=== PATIENT | female | born 1940 | race Caucasian/White ===

== ENCOUNTER 2018-08-14 11:01 | Inpatient (IN) ==
[2018-08-14] MEDS ORDERED: NS 1,000 ML IV ONE ×2 (11:53→17:23)
[2018-08-14 12:09] LABS: ALLEN TEST NO; BE -1.1 mmoll (-3.0-3.0); BLOOD TYPE ARTERIAL; METHB 1.9 % (0.0-1.5); O2(CT) 14.1 mL/dL (15.0-23.0); O2HB 95.2 % (95.0-99.0); PCO2(98.6) 38 mmHg (35-45); PO2(98.6) 102 mmHg (60-100); SAMPLE BLOOD; THB 10.4 g/dL (11.5-17.4)
[2018-08-14 12:10] LABS: MODALITY CANNULA
--- NOTE | 2018-08-14 12:14 | Diag Imaging Result Doc PS360 ---
EXAM: CHEST-PORTABLE 08/14/2018 HISTORY: weakness TECHNIQUE: AP portable at 1204 COMMENT: Compared to the previous study of 12/28/2017 the patchy opacities in the lower lobes have resolved. The heart size and pulmonary vascularity are within normal limits. There is no evidence of pleural effusions. IMPRESSION: No evidence of acute disease. Electronically signed by Matt Velazco 08/14/2018 12:11 PM
[2018-08-14 13:50] LABS: URINE SOURCE CLEAN CATCH
[2018-08-14 13:53] LABS: BASO# 0.02 X1000 (0.0-0.2); BASO% 0.2 % (0.0-0.8); EOS% 1.2 % (0.0-10.0); HEMATOCRIT 31.8 % (37.0-47.0); HEMOGLOBIN 10.4 g/dL (12.0-16.0); IMM GRAN# 0.06 X1000 (0.0-0.04); IMM GRAN% 0.7 % (0.0-0.5); LYMPH# 0.77 X1000 (1.2-3.4); LYMPH% 9.5 % (20.5-51.1); MCHC 32.7 g/dL (33-37); MCV 91.6 FL (81-99); MONO# 1.32 X1000 (0.11-0.59); MONO% 16.2 % (1.7-9.3); MPV 9.5 FL (7.4-10.4); NEUT# 5.87 X1000 (1.4-6.5); NEUT% 72.2 % (42.2-75.2); PLT 292 X1000 (130-400); RBC 3.47 XMIL (4.2-5.4); RDW 14.6 % (11.5-14.5); WBC 8.14 X1000 (4.8-10.8)
[2018-08-14 13:55] LABS: BILIRUBIN URINE NEGATIVE (NEGATIVE); BLOOD URINE NEGATIVE (NEGATIVE); COLOR YELLOW; GLUCOSE URINE NEGATIVE (NEGATIVE); KETONE URINE TRACE mg/dL (NEGATIVE); LEUKOCYTES URINE TRACE (NEGATIVE); NITRITE URINE NEGATIVE (NEGATIVE); PH URINE 5.5; PROTEIN URINE TRACE mg/dL (NEGATIVE); SP GRAVITY URINE 1.012; TURBIDITY URINE HAZY (CLEAR); UR EPITHELIAL CELLS >10 /HPF (<10); URINE BACTERIA NEGATIVE /HPF; URINE RBC <10 /HPF (<10); URINE WBC <10 /HPF (<10); UROBILINOGEN URINE NORMAL (NORMAL)
[2018-08-14 14:18] LABS: ALB/GLOB RATIO 1.2; ALBUMIN 2.7 g/dL (3.5-5.0); CALCIUM 7.4 mg/dL (8.8-10.2); CREATININE 1.2 mg/dL (0.5-0.9); POTASSIUM 4.7 mmol/L (3.5-5.1); TOTAL BILIRUBIN 0.31 mg/dL (0.20-1.00)
--- NOTE | 2018-08-14 15:19 | Diag Imaging Result Doc PS360 ---
CT ABD/PELVIS W/IV CONT ONLY - 08/14/2018 INDICATION: colitis COMPARISON: None FINDINGS: There are some tree-in-bud nodular infiltrates in the lung bases compatible with aspiration or chronic atypical mycobacteria infection. Heart size is normal with no pericardial effusion. There is fatty change of the liver. There is a left adrenal gland nodule measuring 2 x 1.5 cm. The gallbladder is somewhat distended. No obvious inflammation. No calcified gallstones. The ascending colon is somewhat collapsed but there appears to be some inflammation here. Normal appendix. There is severe diverticulosis of the sigmoid colon. No small bowel obstruction. There is moderate vascular disease with some stenosis of the superior mesenteric artery, narrowed by about 50%. There are moderate degenerative changes of the spine. No acute or suspicious bony lesion. There is severe vascular disease of the abdominal aorta and iliac artery systems. Uterus is absent. Urinary bladder and rectum are normal. IMPRESSION: 1. Probable colitis of the ascending colon. Severe diverticulosis of the sigmoid colon. 2. 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 3. Distended gallbladder, nonspecific. Correlate clinically. Consider a gallbladder ultrasound. 4. Fatty liver. 5. Aspiration or chronic atypical pneumonia of the lower lobes bilaterally. 6. Indeterminate, small left adrenal gland nodule. This exam was performed using automated exposure control, adjustment of mA or kV according to patient size, and/or use of iterative reconstruction technique Electronically signed by Franky Brown 08/14/2018 3:16 PM
[2018-08-14] MEDS ORDERED: NS 1,000 ML IV SCH (16:00)
[2018-08-14] MEDS ORDERED: ZOFRAN IV PRN (17:50)
--- NOTE | 2018-08-14 17:57 | PROVIDER DOCUMENTATION ---
This chart was entered by Charlette Hercules Scribe, acting as scribe for Israel Montano MD. HPI-General Adult - General Chief Complaint: Weakness Stated Complaint: WEAKNESS,NOT EATING/LUNG CANCER Time Seen by Provider: 08/14/18 11:41 Source: patient, family Allergies/Adverse Reactions: Patient Allergies Allergy/AdvReac Type Severity Reaction Status Date / Time aspirin Allergy RUNNY NOSE Verified 08/14/18 11:48 bacitracin Allergy RASH Verified 08/14/18 11:48 [From Neosporin ([id number])] clindamycin Allergy Unknown Verified 08/14/18 11:48 moxifloxacin [From Avelox] Allergy SWELLING Verified 08/14/18 11:48 neomycin Allergy RASH Verified 08/14/18 11:48 [From Neosporin ([id number])] polymyxin B Allergy RASH Verified 08/14/18 11:48 [From Neosporin ([id number])] fluticasone AdvReac Unknown Unknown Verified 08/14/18 11:48 levofloxacin [From Levaquin] AdvReac Unknown Verified 08/14/18 11:48 Penicillins AdvReac HIVES Verified 08/14/18 11:48 Home Medications: Home Medication List Medication Instructions Recorded Confirmed Last Taken Type Albuterol 2.5MG/Ipratrop 0.5MG 3 ml INH RTTID 08/02/17 12/24/17 12/23/17 History [Duoneb (A & A)] Albuterol Sulfate [Albuterol 1 puff IH Q6H PRN 08/02/17 12/24/17 Unknown History Sulfate Hfa] Amlodipine Besylate [Norvasc] 5 mg PO DAILY 08/02/17 12/24/17 12/24/17 10:00 History Famotidine [Pepcid] 20 mg PO DAILY 08/02/17 12/24/17 12/24/17 10:00 History Fluticasone/Vilanterol [Breo 1 each IH DAILY 08/02/17 12/24/17 12/24/17 10:00 History Ellipta 200-25 Mcg INH] Lactobacillus Rhamnosus GG 1 each PO BID 08/02/17 12/24/17 12/24/17 10:00 History [Culturelle] Mirtazapine 45 mg PO HS 08/02/17 12/24/17 12/23/17 20:00 History Prednisone 10 mg PO DAILY 08/02/17 12/24/17 12/24/17 10:00 History Rosuvastatin Calcium [Crestor] 5 mg PO HS 08/02/17 12/29/17 12/24/17 10:00 History Alprazolam [Xanax] 0.25 mg PO BID PRN 12/24/17 12/24/17 12/24/17 10:00 History Tiotropium [place] Inhaler 18 mcg IH DAILY 12/24/17 12/24/17 12/24/17 10:00 History [Spiriva] Polyethylene Glycol 3350 [Miralax] 17 gm PO DAILY 12/27/17 12/27/17 Unknown History Guaifenesin E.r. [Mucinex] 600 mg PO Q12H 30 Days #60 tab 12/29/17 Unknown Rx Hydrocodone/Acetaminophen 1 ea PO TID PRN 30 Days #90 tab 12/29/17 Unknown Rx [Hydrocodone-Acetamin 10-325 mg] Sulfamethoxazole/Trimethoprim 1 ea PO BID 10 Days #20 tab 12/29/17 Unknown Rx [Bactrim Ds Tablet] - History of Present Illness -Gen Adult Nature of Presenting Problems: 77 yowf presents to the ed with c/o weakness, decreased appetite, generalized pain, nausea, diarrhea and currently going through chemo for lung cancer. pt had a fall on saturday morning and just has been getting progressively weaker since 3 days prior Location of Pain/Injury: reports: generalized (pain) Quality of Pain: reports: aching Severity: reports: moderate Onset/Duration: reports: 3 days ago Timing: reports: still present, getting worse Context/Activities at Onset: reports: light activity Modifying Factors: improves with: nothing Associated Symptoms: reports: diarrhea, fatigue, loss of appetite, malaise, muscle aches, weakness, trouble walking. denies: chest pain, fever/chills, headaches, shortness of breath, vomiting Similar Symptoms Previously?: Yes Recently seen or treated by another doctor?: Yes (has sen oncologist) Review of Systems - Adult - REVIEW OF SYSTEMS - ADULT Constitutional: reports: see HPIsoraida Eyes: reports: no symptoms reported Ears, Nose, Mouth & Throat: reports: no symptoms reported Cardiovascular: denies: chest pain, palpitations, syncope Respiratory: denies: cough, shortness of breath, wheezing Gastrointestinal: reports: see HPI, diarrhea, nausea, poor appetite. denies: abdominal pain, vomiting Genitourinary: reports: no symptoms reported Musculoskeletal: reports: see HPI, muscle aches, muscle weakness Integumentary: reports: no symptoms reported Neurological: reports: see HPI, loss of balance, tremors. denies: dizziness/vertigo, headache/migraines, slurred speech, syncope Psychiatric: reports: no symptoms reported Endocrine: reports: no symptoms reported Hematologic/Lymphatic: reports: no symptoms reported Allergic/Immunologic: reports: no symptoms reported All Other Systems: Reviewed and Negative Past History - Adult - PAST MEDICAL HISTORY-ADULT Review of Records: reports: Nursing Assessment Review, Medications Reviewed Major Childhood Illnesses: reports: denies history Cardiovascular: reports: HTN, hyperlipidemia Respiratory: reports: COPD, cancer (Lung), pneumonia Gastrointestinal: reports: GERD Obstetrical/Gynecological: reports: denies history Genitourinary: reports: kidney disease Musculoskeletal: reports: denies history Neurological: reports: TIA Psychiatric: reports: depression Endocrine/Immune: reports: denies history Other Conditions: reports: denies history - PRIOR SURGERIES/PROCEDURES Surgical/Procedure History: reports: hysterectomy - IMMUNIZATION STATUS Childhood Immunizations: See Nurse Assessment Flu Vaccine: See Nurse Assessment - FAMILY HISTORY Family History: reviewed, not pertinent - SOCIAL HISTORY Smoking: quit greater than 1 year Substance Use: denies Alcohol Use Frequency: never Living Situation: family Physical Exam-General - PHYSICAL EXAM-ADULT Initial Vital Signs Reviewed: Yes - CONSTITUTIONAL General Appearance: alert, mild distress, thin. negative: appears well - EYES Eyes: PERRL/EOMI, pale conjunctivae - HEAD, EARS, NOSE, MOUTH & THROAT HENMT: negative: moist mucous membranes (dry oral) - NECK Neck: normal inspection - RESPIRATORY Respiratory: chest non-tender, rhonchi (diffuse), increased rate (22) - CARDIOVASCULAR Cardiovascular: normal peripheral pulses, tachycardia (102) - GASTROINTESTINAL (ABDOMEN) Abdominal Exam: soft, tenderness (diffuse). negative: normal bowel sounds - LYMPHATIC Lymphatic: no adenopathy - MUSCULOSKELETAL Back Exam: normal inspection, no CVA tenderness, no vertebral tenderness Extremity: no calf tenderness, pelvis stable - SKIN Integumentary: warm/dry, pallor - PSYCHIATRIC Psych/Mental Status: other (pt is sleepy) Progress - PLAN OF CARE/RESULTS Progress/Plan/Lab Results: Vital Signs - 8 hr 08/14/18 11:10 Temperature 97.8 F Pulse Rate 102 H Respiratory Rate 20 Blood Pressure 95/56 O2 Sat by Pulse Oximetry 91 L Laboratory Results - last 24 hr 08/14/18 08/14/18 11:27 12:00 Specimen Type ARTERIAL Sample Site R BRACHIAL pH 7.40 pCO2 38 pO2 102 H HCO3 24.0 Base Excess -1.1 Oxyhemoglobin 95.2 ABG O2 Sat (Calculated) 14.1 L ABG O2 Saturation 98.0 ABG Carboxyhemoglobin 1.00 ABG Methemoglobin 1.9 H [place] Test NO A-a O2 Difference 50.0 Total Hemoglobin 10.4 L Lactate 0.70 Liter Flow 2.0 Blood Gas Modality CANNULA FiO2 % 28.0 POC Glucose 126 H Orders Category Date Time Status CHEST-PORTABLE [RAD] Stat Exams 08/14/18 11:[address] ABD/PELVIS W/IV CONT ONLY [CT] Stat Exams 08/14/18 11:52 Ordered ABG [RESP] Routine Lab 08/14/18 12:00 Completed CBC WITH ELECTRONIC DIFF [HEME] Stat Lab 08/14/18 11:52 Uncollected COMPREHENSIVE METABOLIC PANEL [CHEM] Stat Lab 08/14/18 11:52 Uncollected LACTATE, PLASMA [CHEM] Stat Lab 08/14/18 11:53 Uncollected LIPASE [CHEM] Stat Lab 08/14/18 11:52 Uncollected URINALYSIS W/POSS RFLX CULT [URINALYSIS] Stat Lab 08/14/18 11:52 Uncollected 0.9% Sodium Chloride Inj [Ns] 1,000 ml Med 08/14/18 11:53 Active IV 999 mls/hr Result Diagrams: 08/14/18 13:27 08/14/18 13:27 - REASSESSMENT Reassessment #1 Time Reassessed: 12:36 Status: unchanged Reassessment #2 Time Reassessed: 14:21 Status: improving - EKG 1 Time of EKG reading by physician:: 11:24 EKG Read and Signed by:: Israel Montano EKG Interpretation (*Must complete 3 of following elements*): Normal Rate: 102 Rhythm: sinus tachycardia [place]: normal QRS: normal OR Interval: normal ST Wave: normal - XRAY 1 XRAY: Bilateral XRAY Study: Chest Impression: See EMR Report (EXAM: CHEST-PORTABLE 08/14/2018 HISTORY: weakness TECHNIQUE: AP portable at 1204 COMMENT: Compared to the previous study of 12/28/2017 the patchy opacities in the lower lobes have resolved. The heart size and pulmonary vascularity are within normal limits. There is no evidence of pleural effusions. IMPRESSION: No evidence of acute disease. Electronically signed by Matt Velazco 08/14/2018 12:11 PM 08/14/18 1211 Interpreting Physician: Matt Velazco MD Dictated Date/Time: 08/14/18 1211 cc: Israel Montano MD; Loyd Knox) - CT/MRI 1 CT Study: Abdomen, Pelvis Impression: See EMR Report (CT ABD/PELVIS W/IV CONT ONLY - 08/14/2018 INDICATION: colitis COMPARISON: None FINDINGS: There are some tree-in-bud nodular infiltrates in the lung bases compatible with aspiration or chronic atypical mycobacteria infection. Heart size is normal with no pericardial effusion. There is fatty change of the liver. There is a left adrenal gland nodule measuring 2 x 1.5 cm. The gallbladder is somewhat distended. No obvious inflammation. No calcified gallstones. The ascending colon is somewhat collapsed but there appears to be some inflammation here. Normal appendix. There is severe diverticulosis of the sigmoid colon. No small bowel obstruction. There is moderate vascular disease with some stenosis of the superior mesenteric artery, narrowed by about 50%. There are moderate degenerative changes of the spine. No acute or suspicious bony lesion. There is severe vascular disease of the abdominal aorta and iliac artery systems. Uterus is absent. Urinary bladder and rectum are normal. IMPRESSION: 1. Probable colitis of the ascending colon. Severe diverticulosis of the sigmoid colon. 2. 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 3. Distended gallbladder, nonspecific. Correlate clinically. Consider a gallbladder ultrasound. 4. Fatty liver. 5. Aspiration or chronic atypical pneumonia of the lower lobes bilaterally. 6. Indeterminate, small left adrenal gland nodule. This exam was performed using automated exposure control, adjustment of mA or kV according to patient size, and/or use of iterative reconstruction technique Electronically signed by Franky Brown 08/14/2018 3:16 PM 08/14/18 3736 Interpreting Physician: Frnaky Brown MD Dictated Date/Time: 08/14/18 1500 cc: Israel Montano MD; Loyd Knox) - CONSULTS/PCP/HOSPITALIST Notification #1 *Consult/PCP/Hospitalist*: hospitalist Time Discussed: 15:39 Consult Disposition: Admit Departure - Departure Date of Disposition Decision: 08/14/18 Time of Disposition Decision: 15:39 DIAGNOSIS: Weakness, Nausea Diarrhea Qualifiers: Diarrhea type: unspecified type Qualified Code(s): R19.7 - Diarrhea, uns pecified Disposition: ADMITTED INPATIENT 09 Certified Medical Emergency: Emergent Condition: Stable - Critical Care Note This patient required my direct & personal management of CC.: Yes Total Time (mins): 34 Critical Care Statement: This patient required my direct personal management to treat or rule out processes, the absence of which, could potentiallly result in sudden, clinically significant life or limb threatening deterioration. Attestation - Physician/ JOE Attestation Patient care was provided by Advanced Practice Provider:: No The physician spent face to face time with patient:: Yes Advanced Practice Provider documentation review:: Supervising physician onsite and consulted in the evaluation and care of this patient. The physician did have a face to face encounter with the patient. This chart was documented by the indicated scribe, (Charlette Hercules Scribe) and accurately reflects the services I performed and decisions made by me, Israel Montano MD, as attested by the provider's signature.
[2018-08-14] MEDS: DUONEB (A & A) INH SCH ×3 (19:00→23:27)
--- NOTE | 2018-08-14 19:12 | HISTORY AND PHYSICAL ---
CHIEF COMPLAINT: Generalized weakness with anorexia and diarrhea. HISTORY OF PRESENT ILLNESS: This is a 77-year-old female with a history of bilateral small-cell lung cancer, gastroesophageal reflux disease, and hypertension. She presents to the emergency room complaining of generalized weakness that has increased over the last 4 to 5 weeks and diarrhea that has developed in the last 9 days. She does state that over the last month or so that she has had no taste for food, but she was able to take in liquids, but over the last 2 weeks, she has taken in less each day. She does state that she has been taking Imodium AD for her diarrhea. She was evaluated by her primary care provider last week, and at this time, she stated stool specimens were obtained for Clostridium difficile, although she has had not heard back from them. She denies any vomiting, any nausea, or any black or bloody stools. CT of the abdomen and pelvis revealed possible colitis of the ascending colon, severe diverticulosis of the sigmoid colon, as well as aspiration or chronic atypical pneumonia of the lower lobes bilaterally. She does report a 6-pound weight loss in the last month. PAST MEDICAL HISTORY: 1. Bilateral small-cell lung cancer, status post chemoradiation completed in 06/2017. Now on Opdivo and Yervoy infusions per Dr. Puente. 2. COPD. 3. Hypertension. 4. Gastroesophageal reflux disease. PAST SURGICAL HISTORY: Hysterectomy, Port-A-Cath placement. SOCIAL HISTORY: She denies alcohol, tobacco, or illicit drug use. ALLERGIES: Aspirin, bacitracin, clindamycin, Avelox, Neosporin, Levaquin, and penicillin. HOME MEDICATIONS: A list will be obtained by the nursing staff and, once verified, will be reviewed and restarted as appropriate. REVIEW OF SYSTEMS: Discussed with patient with pertinent positives stated in the HPI. She denied any syncope, dizziness, any chest pain or palpitations, any nausea pr vomiting, any constipation, any black or bloody vomitus or stools, or any hematuria, dysuria, frequency, or urgency. PHYSICAL EXAMINATION: GENERAL: This is a 77-year-old female who is lying in the stretcher in the emergency room in mild distress. VITAL SIGNS: Blood pressure is 108/49 with a heart rate of 89. Respirations are 19. Temperature is 97.5 degrees. O2 saturations are ranging from 94% to 100% on 2 L nasal cannula. She is 86% to 87% on room air. HEENT: Head is normocephalic, atraumatic. Mucous membranes are moist. NECK: Supple, with trachea midline. CARDIOVASCULAR: Regular rate and rhythm. S1 and S2 appreciated. No rubs. No murmurs. She has no lower extremity edema, with peripheral pulses palpable x4 extremities. PULMONARY: She does have wheezes scattered throughout. Chest rises and falls symmetrically with respiration. CHEST WALL: Nontender. She has no increased work of breathing. GASTROINTESTINAL: Abdomen is soft, nontender, nondistended, with bowel sounds in all 4 quadrants. NEUROLOGIC: She is alert and oriented x3. SKIN: Warm and dry. LABORATORIES: WBC is 8.1 with hemoglobin 10.4, hematocrit 31.8, platelets of 292,000. Sodium is 133, potassium 4.7, BUN 29, creatinine 1.2 with a glucose of 99. Her ALT is 9, alkaline phosphatase is 122. Urinalysis is consistent with contamination with greater than 10 epithelial cells and urine leukocytes. Urine culture is pending. IMAGING STUDIES: Chest x-ray reveals no evidence of acute disease. CT of the abdomen and pelvis revealed probable colitis of the ascending colon; severe diverticulosis of the sigmoid colon; severe vascular disease including the superior mesenteric artery; distended gallbladder, nonspecific, consider a gallbladder ultrasound; fatty liver; aspiration or chronic atypical pneumonia in the lower lobes bilaterally; and indeterminate small left adrenal gland nodule. ASSESSMENT AND PLAN: 1. Diarrhea, probable colitis of the ascending colon. It is very likely this is immune mediated colitis. We will give 60 mg of Solu-Medrol IV q.6 hours. We will send a stool for C. difficile antigen and toxin. 2. Bilateral small-cell lung cancer, currently on Opdivo and Yerv[place] infusions per Dr. Puente. 3. Chronic obstructive pulmonary disease. She will be placed on DuoNeb q.4 hours and q.2 hours p.r.n. and steroids as above. 4. Hypertension. At present, blood pressures are running in the 90s. We will give a 2nd liter. We will identify and hold medications until blood pressure improves. 5. Hypotension. Blood pressures are running in the 90s. We will give another liter of saline. Continue with IV hydration and trend her vital signs. Add pressors if she doesnt respond to fluid challenge. 6. Gastroesophageal reflux disease. Protonix. We will recheck a CBC with diff in the morning as well as a CMP and a TSH. consult Physical Therapy. consult Dr. Fischer of [facility]. 7. Further treatments pending hospital course. Dictated by JESSICA Plummer for Josesito Thomas MD cc: JESSICA Plummer MD I agree with most components of history, physical, assessment and plan. A separate addendum has been dictated. MTDD
[2018-08-14] MEDS: SOLU-MEDROL IV SCH (19:24)
--- NOTE | 2018-08-14 19:27 | HISTORY AND PHYSICAL ---
ADDENDUM TO HISTORY AND PHYSICAL: Dictated by the nurse practitioner. Agree with most components of history, physical, assessment, and plan. HISTORY OF PRESENT ILLNESS: In brief, Ms. Vargas is a 77-year-old, lady with history of small cell lung cancer diagnosed in February 2017, status post multiple rounds of chemo radiation, the last being on last week of June, which included Opdivo and Keytruda; COPD, essential hypertension, anxiety, chronic GERD, chronic pain, and hyperlipidemia, who comes in with chief complaints of gradually worsening weakness, abdominal pain, and persistent diarrhea of about 4 weeks duration to an extent that her physical strength was diminishing. In the emergency room her vitals were largely within acceptable range except slight hypotension with blood pressure of 90/50 and tachycardia with pulse of [address] scan had detected possible left-sided colitis and so hospitalist team was consulted for admission considering the patient's acute symptomatic colitis and physical deconditioning and considering her hypotension and tachycardia. SUBJECTIVE: At the time of my evaluation, patient appears dehydrated. She continues to complain of abdominal cramps. She has not noticed any blood in her stool. She denies any more vomiting at the moment. She denies any chest pain or shortness of breath. Her cough is at baseline and has not noticed any increase in sputum production. PHYSICAL EXAMINATION: VITAL SIGNS: Temperature 97.5, pulse 79, respiratory rate 16, blood pressure 132/46, saturating 92% on 2 L nasal cannula. ENT: On physical examination, oral cavity is moist. LUNGS: Air entry bilaterally equal. No wheeze, rhonchi, or crackles. CARDIOVASCULAR: S1, S2 normal. No murmur, rub or gallop. ABDOMEN: Soft. She has generalized tenderness. Active bowel sounds. No lower extremity edema. SKIN: Turgor has significantly diminished. LABS: Consistent with no leukocytosis, normocytic anemia, normal platelet count. Hyponatremia, hypochloremia, acute kidney injury, hypocalcemia. ASSESSMENT: 1. Acute colitis. Differential includes acute infectious, either bacterial or viral colitis or immune checkpoint inhibitor induced immune colitis. 2. Acute kidney injury due to volume depletion and prerenal azotemia because of persistent diarrhea, hyponatremia, hypochloremia. 3. History of chronic obstructive pulmonary disease, not currently in acute exacerbation. 4. Chronic anxiety and chronic pain with insomnia. 5. Small cell lung cancer on chemoradiation PLAN: I will start patient on intravenous fluid resuscitation, intravenous antibiotics and intravenous steroids. Apparently, patient has been tolerating cephalexin without any side effects. I will resume most of her home medications for anxiety, chronic pain. Oncology will be consulted tomorrow. Follow up with stool studies to rule out any Clostridium difficile or obvious bacterial pathology. Plan of care discussed with the patient. All of her questions have been answered. cc: Josesito Thomas MD MTDD
[2018-08-14] MEDS: REMERON PO SCH (21:30)
[2018-08-14] MEDS: CRESTOR PO SCH (21:30)
[2018-08-14] MEDS: FLAGYL 500 MG/NS 500 MG/100 ML IVPB IV SCH (21:31)
[2018-08-14] MEDS: ROCEPHIN 2 GM in NS 50 ML IV SCH (22:56)
[2018-08-15] MEDS: SOLU-MEDROL IV SCH ×5 (00:57→23:27)
[2018-08-15] MEDS: FLAGYL 500 MG/NS 500 MG/100 ML IVPB IV SCH ×4 (03:01→20:15)
[2018-08-15] MEDS: DUONEB (A & A) INH SCH ×7 (03:14→20:34)
[2018-08-15] MEDS: PROTONIX PO SCH (06:07)
[2018-08-15] MEDS: NORCO-10 PO PRN ×2 (08:11→20:16)
[2018-08-15] MEDS: SPIRIVA INH SCH (08:20)
[2018-08-15] MEDS: BREO ELLIPTA 200/25 MCG INH INH SCH (08:35)
[2018-08-15 08:48] LABS: BASO# 0.01 X1000 (0.0-0.2); BASO% 0.2 % (0.0-0.8); EOS# 0.01 X1000 (0.0-0.7); EOS% 0.2 % (0.0-10.0); HEMATOCRIT 32.7 % (37.0-47.0); HEMOGLOBIN 10.2 g/dL (12.0-16.0); IMM GRAN# 0.04 X1000 (0.0-0.04); IMM GRAN% 0.6 % (0.0-0.5); LYMPH# 0.35 X1000 (1.2-3.4); LYMPH% 5.4 % (20.5-51.1); MCH 29.1 PG (27-31); MCHC 31.2 g/dL (33-37); MCV 93.4 FL (81-99); MONO% 7.7 % (1.7-9.3); MPV 9.5 FL (7.4-10.4); NEUT# 5.61 X1000 (1.4-6.5); NEUT% 85.9 % (42.2-75.2); PLT 315 X1000 (130-400); RDW 14.9 % (11.5-14.5); WBC 6.52 X1000 (4.8-10.8)
[2018-08-15 09:13] LABS: AGAP 14; ALB/GLOB RATIO 0.9; ALBUMIN 2.5 g/dL (3.5-5.0); ALKALINE PHOSPHATASE 115 U/L (32-104); BUN 19 mg/dL (8-22); CALCIUM 6.9 mg/dL (8.8-10.2); CHLORIDE 103 mmol/L (98-107); COSMO 276; CREATININE 0.8 mg/dL (0.5-0.9); ESTIMATED GFR > 60; GLUCOSE 173 mg/dL (70-104); GOT 20 U/L (10-30); GPT 10 U/L (10-36); POTASSIUM 4.7 mmol/L (3.5-5.1); SODIUM 135 mmol/L (136-145); TCO2 18 mmol/L (25-35); TOTAL BILIRUBIN 0.19 mg/dL (0.20-1.00); TOTAL PROTEIN 5.3 g/dL (6.3-8.3)
--- NOTE | 2018-08-15 09:23 | EKG Report ---
Test Performed on : 08/14/2018 11:24:33 AM Test Reason : ED. No order in [place] Blood Pressure : / mmHG Vent. Rate : 102 BPM Atrial Rate : 102 BPM P-R Int : 124 ms QRS Dur : 082 ms QT Int : 322 ms P-R-T Axes : 083 059 077 degrees QTc Int : 419 ms Sinus tachycardia. Otherwise normal ECG When compared with ECG of 24-DEC-2017 14:15, No significant change was found Unconfirmed Result
[2018-08-15] MEDS: TUMS PO SCH ×2 (11:56→20:15)
[2018-08-15] MEDS: XANAX PO PRN ×2 (15:04→20:15)
--- NOTE | 2018-08-15 17:45 | PROGRESS NOTE ---
DATE: 08/15/2018 INTERVAL HISTORY: No acute event overnight. The patient did have multiple bowel movements overnight. She states about 2. She denies any nausea, vomiting, chest pain. She states that she is not able to bring up sputum and she would like to get some mucolytics. We discussed about colitis finding and treatment. I answered all of her questions. VITAL SIGNS: Currently vitals suggest temperature of 98 degrees, pulse of 95, respiratory rate 16, blood pressure 120/42, saturating 98% on room air. PHYSICAL EXAMINATION: General: Appears appears very lean and thin, not in any acute distress. HEENT: Oral cavity is moist. Lungs: Air entry bilaterally equal. No wheeze or rhonchi. She does have mild crackles at bilateral bases and she at the time of physical exam complains of a little bit of shortness of breath and I have discontinued fluids. Cardiovascular: S1, S2 normal. No murmur, rub, or gallop. She has a port over her chest. Abdomen: Soft, mild generalized tenderness. Active bowel sounds. No lower extremity edema. Skin: Turgor has improved. Neurologic: She is alert oriented x3. LABS: Suggestive of no leukocytosis, normocytic anemia, normal platelet count. BMP suggestive of improvement in hyponatremia and resolution of hypokalemia. Resolution of acute kidney injury, hypocalcemia for which she is getting repletion. ASSESSMENT AND PLAN: 1. Acute colitis. Differential includes viral versus bacterial versus immune checkpoint inhibitor induced immune colitis. Continue intravenous metronidazole and ceftriaxone. Preliminary stool studies did not detect any Clostridium difficile analysis. Stool culture is pending. Continue intravenous steroids. Appreciate Oncology recommendations 2. Acute kidney injury due to volume depletion and prerenal azotemia because of persistent diarrhea, hyponatremia, hypochloremia, now improving and almost resolved. I will stop intravenous fluids and start patient on GI soft diet. 3. History of chronic obstructive pulmonary disease not in any acute exacerbation. I will start the patient on acetylcysteine for her chronic cough and as a mucolytic. 4. Chronic anxiety and chronic pain with insomnia. I will continue her home alprazolam, [place], mirtazapine. 5. History of chronic obstructive pulmonary disease, not in any acute exacerbation. Continue albuterol ipratropium nebulization, fluticasone, vilanterol inhalation, tiotropium inhaler. Continue home rosuvastatin 6. Disposition: Patient remains inside the hospital for need for intravenous antibiotics and intravenous steroids. I will have physical therapy evaluate the patient and we will keep a close eye over her. I called patient's son who is next surrogate decision maker and informed him about patient's clinical course and answered all of his questions. cc: Josesito Thomas MD
[2018-08-15] MEDS: MUCOMYST 20% INH SCH ×2 (18:41→20:34)
[2018-08-15] MEDS: REMERON PO SCH (20:15)
[2018-08-15] MEDS: CRESTOR PO SCH (20:16)
[2018-08-15] MEDS: ROCEPHIN 2 GM in NS 50 ML IV SCH (23:27)
[2018-08-16] MEDS: DUONEB (A & A) INH SCH ×2 (03:04→08:42)
[2018-08-16] MEDS: FLAGYL 500 MG/NS 500 MG/100 ML IVPB IV SCH ×4 (03:23→21:19)
[2018-08-16] MEDS: SOLU-MEDROL IV SCH ×4 (06:53→23:20)
[2018-08-16] MEDS: PROTONIX PO SCH (06:54)
[2018-08-16] MEDS: SPIRIVA INH SCH (08:10)
[2018-08-16] MEDS: BREO ELLIPTA 200/25 MCG INH INH SCH (08:10)
[2018-08-16] MEDS: MUCOMYST 20% INH SCH ×2 (08:13→21:20)
[2018-08-16] MEDS ORDERED: LOPRESSOR 10 MG in NS 50 ML IV ONE (08:22)
[2018-08-16] MEDS: LOPRESSOR PO SCH ×2 (09:56→10:03)
[2018-08-16] MEDS: TUMS PO SCH ×2 (09:56→21:18)
[2018-08-16] MEDS ORDERED: CARDIZEM IV ONE (10:29)
[2018-08-16] MEDS ORDERED: CARDIZEM 125/NS 125 MG/125 ML IVPB IV SCH (10:30)
[2018-08-16] MEDS: NORCO-10 PO PRN ×2 (10:52→21:18)
[2018-08-16] MEDS: XANAX PO PRN ×2 (10:52→21:18)
[2018-08-16] MEDS: ATROVENT NEB INH SCH ×3 (11:00→21:20)
--- NOTE | 2018-08-16 11:02 | PROGRESS NOTE ---
DATE: 08/16/2018 INTERVAL HISTORY: Patient's heart rate had started increasing overnight. I looked at the EKG as well as the telemetry strip, in which she went from sinus tachycardia to what appears to be supraventricular tachycardia. The EKG suggested sinus tachycardia with PAC. On my review, it looks like intermittent atrial flutter versus atrial fibrillation. Currently at the time of evaluation, patient is denying any chest pain or shortness of breath or cough. She is denying nausea and vomiting. She states she continues to have watery diarrhea, and she has had about 3 bowel movements. We discussed about her high heart rate, giving her medications, continuing current treatment, and I answered all of her questions. VITALS: Temperature 97.5 degrees, pulse is currently 140, respiratory rate 20, blood pressure 137/80, saturating 99% on room air to nasal cannula. PHYSICAL EXAMINATION: General: Does not appear in any acute distress. HEENT: No pallor, cyanosis, clubbing, or icterus. Oral cavity is moist. Lungs: Air entry bilaterally equal. No wheeze or rhonchi. She does have mild crackles to bilateral bases. Heart: S1, S2 normal. Tachycardic. No murmur, rub, or gallop. She has a port over her right chest. Abdomen: Soft, nontender. Active bowel sounds. Extremities: No lower extremity edema. Skin: Turgor is improved. Neurologic: She is alert and oriented x3. LABS: No CBC or BMP today. New BMP has been ordered. X-RAYS: EKG suggestive of atrial flutter with 2-to-1 block with intermittent atrial fibrillation and sinus rhythm. ASSESSMENT AND PLAN: 1. Acute colitis. Differential includes viral colitis versus immune checkpoint inhibitor-induced immune colitis. The patient does not have any leukocytosis. I will await stool culture and accordingly discontinue intravenous antibiotics. Continue her on current dose of intravenous steroids. Appreciate Oncology recommendation. 2. Supraventricular tachycardia, likely atrial flutter with 2-to-1 block. The patient did not respond to intravenous metoprolol and oral metoprolol dose. So, I will transfer patient to [facility] and start her on diltiazem drip and will follow up with echocardiogram. Continue enoxaparin at prophylactic dose and, according to her response, I might change it to therapeutic. 3. Acute kidney injury due to volume depletion and prerenal azotemia at the time of admission has resolved. I will follow up with basic metabolic panel to make sure her electrolytes are within acceptable range. Intravenous fluids have been stopped. 4. History of chronic obstructive pulmonary disease, not in any acute exacerbation. Continue acetylcysteine, ipratropium nebulization, fluticasone vilanterol inhaler and tiotropium which are her home medications. 5. Chronic anxiety and chronic pain with insomnia. Continue home alprazolam, [place], mirtazapine. DISPOSITION: I will transfer patient to [facility] for close monitoring of her cardiorespiratory status. Plan of care was discussed with her. Yesterday, I called patient's son and informed him about patient's course. All of their questions have been answered. cc: Josesito Thomas MD MTDWard
[2018-08-16] MEDS: LOVENOX SUBQ SCH (12:03)
[2018-08-16 12:16] LABS: AGAP 10; BUN 13 mg/dL (8-22); CHLORIDE 103 mmol/L (98-107); COSMO 276; CREATININE 0.8 mg/dL (0.5-0.9); ESTIMATED GFR > 60; GLUCOSE 141 mg/dL (70-104); MAGNESIUM 1.4 mg/dL (1.5-2.7); POTASSIUM 4.4 mmol/L (3.5-5.1); SODIUM 137 mmol/L (136-145); TCO2 24 mmol/L (25-35)
[2018-08-16 12:18] LABS: CALCIUM 6.5 mg/dL (8.8-10.2)
[2018-08-16] MEDS ORDERED: CALCIUM GLUCONATE 2 GM in NS 100 ML IV ONE (12:22)
[2018-08-16] MEDS: MAGNESIUM SULFATE 2 GM/S.W.I. 2 GM/50 ML IVPB IV SCH ×2 (14:56→16:49)
--- NOTE | 2018-08-16 15:01 | ECHO REPORT ---
ORDER DATE: 08/16/2018 INTERPRETING PHYSICIAN: Jeff Peña MD ECHOCARDIOGRAPHIC MEASUREMENTS: 1. Interventricular septum 0.8 cm. 2. Left ventricular posterior wall 0.9 cm. 3. Diastolic diameter 3.8 cm. 4. Left atrium 3 cm. 5. Aorta 2.8 cm. SUMMARY OF THE 2-DIMENSIONAL IMAGIN. The aortic valve leaflets are sclerosed, trileaflet, opening normally. 2. Pulmonic valve was normal. 3. There is trace pulmonary regurgitation. 4. There is moderate mitral annular calcification. 5. The tricuspid valve was normal. 6. Mitral valve leaflets mildly thickened. 7. There is moderate eccentric tricuspid regurgitation. 8. Peak velocity across the tricuspid valve was 3.6 m/sec. 9. Pulmonary artery systolic pressure of 62 mmHg. 10. There is mild mitral regurgitation. 11. Peak velocity across the aortic valve less than 2 m/sec. 12. There is no aortic stenosis or regurgitation. 13. Atrial fibrillation was noted with a heart rate varying from 120 to 130 beats per minute. 14. Normal left ventricular cavity size. 15. Estimated ejection fraction of 65%. 16. Tachycardia could overestimate the left ventricular systolic function. 17. There is no pericardial effusion or obvious intracardiac mass or thrombus seen. cc: MD Josesito Hermosillo MD
[2018-08-16] MEDS: REMERON PO SCH (21:17)
[2018-08-16] MEDS: CARDIZEM PO SCH (21:18)
[2018-08-16] MEDS: CRESTOR PO SCH (21:18)
[2018-08-16] MEDS: ROCEPHIN 2 GM in NS 50 ML IV SCH (22:23)
[2018-08-17] MEDS ORDERED: TEARISOL OPH SOLUTION OPH PRN (01:33)
[2018-08-17] MEDS: CARDIZEM PO SCH ×4 (03:15→20:25)
[2018-08-17] MEDS: FLAGYL 500 MG/NS 500 MG/100 ML IVPB IV SCH ×4 (03:16→20:25)
[2018-08-17] MEDS: ATROVENT NEB INH SCH ×4 (03:45→21:50)
[2018-08-17 05:50] LABS: BASO# 0.01 X1000 (0.0-0.2); BASO% 0.1 % (0.0-0.8); HEMATOCRIT 30.1 % (37.0-47.0); HEMOGLOBIN 9.6 g/dL (12.0-16.0); IMM GRAN# 0.15 X1000 (0.0-0.04); IMM GRAN% 2.2 % (0.0-0.5); LYMPH% 7.4 % (20.5-51.1); MCH 29.5 PG (27-31); MCHC 31.9 g/dL (33-37); MCV 92.6 FL (81-99); MONO# 0.52 X1000 (0.11-0.59); MONO% 7.7 % (1.7-9.3); MPV 9.9 FL (7.4-10.4); NEUT# 5.58 X1000 (1.4-6.5); NEUT% 82.6 % (42.2-75.2); PLT 344 X1000 (130-400); RBC 3.25 XMIL (4.2-5.4); RDW 15.1 % (11.5-14.5); WBC 6.76 X1000 (4.8-10.8)
[2018-08-17 06:15] LABS: ESTIMATED GFR > 60
[2018-08-17 06:23] LABS: AGAP 10; BUN 12 mg/dL (8-22); CHLORIDE 103 mmol/L (98-107); COSMO 275; CREATININE 0.8 mg/dL (0.5-0.9); GLUCOSE 165 mg/dL (70-104); MAGNESIUM 2.3 mg/dL (1.5-2.7); PHOSPHORUS 1.9 mg/dL (2.7-4.5); POTASSIUM 4.6 mmol/L (3.5-5.1); SODIUM 136 mmol/L (136-145); TCO2 23 mmol/L (25-35)
[2018-08-17] MEDS: PROTONIX PO SCH (06:30)
[2018-08-17] MEDS: SOLU-MEDROL IV SCH ×3 (06:30→23:52)
[2018-08-17] MEDS ORDERED: CALCIUM GLUCONATE 1 GM in NS 50 ML IV ONE (06:59)
[2018-08-17] MEDS ORDERED: CALCIUM GLUCONATE 4.65 MEQ in NS 50 ML IV ONE (07:10)
[2018-08-17] MEDS: K-PHOS PO SCH ×3 (08:14→18:15)
[2018-08-17] MEDS: TUMS PO SCH ×2 (08:14→20:27)
[2018-08-17] MEDS: BREO ELLIPTA 200/25 MCG INH INH SCH (09:27)
[2018-08-17] MEDS: SPIRIVA INH SCH (09:28)
[2018-08-17] MEDS: MUCOMYST 20% INH SCH ×2 (09:29→21:50)
--- NOTE | 2018-08-17 10:06 | PROGRESS NOTE ---
DATE: 08/17/2018 INTERVAL HISTORY: Ms. Vargas was transferred to [facility] unit for supraventricular tachycardia, and was started on intravenous diltiazem drip. However, within a few hours, she had converted back to normal sinus rhythm, and the drip was changed to p.o. diltiazem, which she has been tolerating well without any discomfort. SUBJECTIVE: The patient is feeling better. She has not had a bowel movement since yesterday. She is eating softer food without any trouble. We discussed about her exam findings, and answered all of her questions. OBJECTIVE: Vital Signs: Currently detect a temperature of 97.1 degrees, pulse 81, respiratory rate 17, blood pressure 140/63, saturating 98% on room air. General: Does not appear in any acute distress. No pallor, cyanosis, clubbing, or icterus. Oral cavity is moist. Lungs: Air entry bilaterally equal. No wheeze, rhonchi, crackles, except mild crackles at bilateral bases. S1, S2 is normal. Not tachycardic. No murmur, rub, or gallop. She has a port over her right chest. Abdomen: Soft, nontender. Active bowel sounds. Extremities: No lower extremity edema. Skin: Turgor is improved. Neurologic: She is alert and oriented x3. She was able to eat her meals. Her mood appears appropriate. She does not have any confusion. IMAGING AND LABORATORY DATA: Labs suggestive of no leukocytosis, normocytic anemia, normal platelet count. She does have normal electrolytes, normal kidney function, except hypocalcemia which is being repleted, and hypophosphatemia which is being repleted. Hypomagnesemia has resolved. Stool culture is pending. Echocardiogram yesterday had suggested moderate mitral annular calcification, thick mitral valve leaflets, normal left ventricular ejection fraction of 65%, and only mild mitral regurgitation. ASSESSMENT AND PLAN: 1. Acute colitis, likely viral colitis versus immune checkpoint inhibitor induced immune colitis. Stool culture is pending to rule out bacterial colitis, though she does not have leukocytosis. I will continue intravenous antibiotics until the final stool culture comes back, at which point I will discontinue antibiotics. Continue intravenous steroids. I will start tapering it today. 2. Supraventricular tachycardia, likely sinus tachycardia with premature atrial contractions versus atrial flutter with 2:1 block, which the patient converted back to normal sinus rhythm in a few hours after diltiazem drip. Continue oral diltiazem. Echocardiogram result suggests normal ejection fraction without any mitral stenosis. Continue enoxaparin for deep venous thrombosis prophylaxis. 3. Acute kidney injury on presentation because of volume depletion, now resolved. I will continue to replete calcium. Her vitamin D levels are normal. Continue to monitor electrolytes. 4. History of chronic obstructive pulmonary disease without acute exacerbation. Continue acetylcysteine, ipratropium nebulization, fluticasone vilanterol inhaler, and tiotropium inhaler, which are home medications; continue home alprazolam and mirtazapine for anxiety, and [place] for chronic pain. 5. Disposition. I will continue to monitor the patient in [facility]. If her diarrhea continues to improve, I would anticipate discharge in the next 24 to 48 hours. Plan of care discussed with her. All of her questions have been answered. cc: Josesito Thomas MD
[2018-08-17] MEDS: LOVENOX SUBQ SCH (14:08)
[2018-08-17] MEDS: NORCO-10 PO PRN (14:58)
[2018-08-17] MEDS: XANAX PO PRN (14:59)
[2018-08-17] MEDS: CRESTOR PO SCH (20:26)
[2018-08-17] MEDS: REMERON PO SCH (20:26)
[2018-08-18] MEDS: ROCEPHIN 2 GM in NS 50 ML IV SCH ×2 (00:15→23:04)
[2018-08-18] MEDS: XANAX PO PRN ×3 (02:17→22:07)
[2018-08-18] MEDS: FLAGYL 500 MG/NS 500 MG/100 ML IVPB IV SCH ×4 (02:17→21:55)
[2018-08-18] MEDS: NORCO-10 PO PRN ×3 (02:17→22:07)
[2018-08-18] MEDS: ATROVENT NEB INH SCH ×4 (03:40→19:42)
--- NOTE | 2018-08-18 04:10 | HEMO/ONC CONSULTATION ---
DATE: 08/15/2018 REFERRING PHYSICIAN: Dr. Bellamy REASON FOR REFERRAL: History of small-cell lung cancer, colitis, known to our service. HISTORY OF PRESENT ILLNESS: Ms. Keren Vargas is a very pleasant 77-year-old woman with a history of small cell lung cancer, COPD, hypertension, and GERD, who was admitted to [facility] with acute colitis. She is being followed by Dr. Dwight Puente. She is receiving Opdivo and Yervoy. Her last dose of Yervoy was on July 11. Her last dose of Oxycel was on August 01. She underwent a CT of the chest, abdomen, and pelvis, which showed probable colitis of the ascending colon. She also had severe diverticulosis in the sigmoid colon. The Hematology/Oncology service was placed on consult to provide further workup and treatment options. She is being admitted and has been placed on Solu-Medrol 60 mg IV q.6 h. as well as Rocephin 2 g q.24 h. PAST MEDICAL HISTORY: As mentioned in HPI. PAST SURGICAL HISTORY: 1. Port-A-Cath placement. 2. Hysterectomy. SOCIAL HISTORY: The patient denies any alcohol, tobacco, or illicit drug use. ALLERGIES: Levaquin, penicillin, Avelox, bacitracin, aspirin, clindamycin, Neosporin. MEDICATIONS: As per medication sheet. REVIEW OF SYSTEMS: As per HPI. Otherwise, a 12-point review of systems was negative. PHYSICAL EXAMINATION: General: The patient appears to be in no apparent distress. She just finished with her breathing treatment. Vital Signs: Blood pressure 153/96, pulse 95, respirations 16, temperature 97.9 degrees Fahrenheit, O2 saturation 96% on room air. HEENT: Head normocephalic, atraumatic. Mucosa is pink and moist. Pupils reactive to light. Oropharynx clear. Neck is supple. No lymphadenopathy or thyromegaly. Cardiovascular: S1, S2. Regular rate and rhythm. No murmurs noted. Respiratory: Breath sounds clear to auscultation bilaterally. No rhonchi, rales, or wheezing noted. Gastrointestinal: Soft, nontender, nondistended. Bowel sounds hyperactive. Neurologic: Gait unassessed. ASSESSMENT AND PLAN: 1. Acute colitis. Stool studies were negative for C. difficile and acute infection. Questionable if this is an immune-mediated response secondary to Yervoy or Opdivo. We agree with Solu-Medrol 60 mg IV q.6 h. and close monitoring. 2. Small cell lung cancer. The patient is being followed by Dr. Dwight Puente. She has been on Opdivo and Yervoy. She last received Yervoy on July 11 and Opdivo on August 01. We will plan to hold further therapy until the acute event has resolved. Once the patient has recovered, she will follow up with Dr. Puente as an outpatient to discuss further workup and treatment options. 3. Acute kidney injury. I agree with IV hydration and present management as per primary care team. 4. History of chronic obstructive pulmonary disease. The patient is currently not in any acute exacerbation. She is receiving breathing treatments q.4 h. Agree with present management per primary care team. Thank you for this consult and allowing us to take part in the care of this patient. We will follow along with you. Dictated by JESSICA Tate for Rohit Fischer MD cc: Rohit Fischer MD
[2018-08-18] MEDS: SOLU-MEDROL IV SCH (05:57)
[2018-08-18] MEDS: PROTONIX PO SCH (06:07)
--- NOTE | 2018-08-18 07:31 | EKG Report ---
Test Performed on : 08/16/2018 2:33:23 PM Test Reason : Afib/flutter Blood Pressure : / mmHG Vent. Rate : 124 BPM Atrial Rate : 283 BPM P-R Int : 000 ms QRS Dur : 072 ms QT Int : 326 ms P-R-T Axes : 263 043 072 degrees QTc Int : 468 ms Atrial flutter. with variable AV block. Abnormal ECG When compared with ECG of 16-AUG-2018 02:46, (Unconfirmed) Atrial flutter. has replaced Sinus rhythm. ST elevation now present in Inferior leads Nonspecific T wave abnormality no longer evident in Lateral leads Confirmed by Umair BENSON, Noah Stoner ([id number]) on 08/18/2018 7:58:49 AM
[2018-08-18] MEDS: TUMS PO SCH ×2 (08:31→21:55)
[2018-08-18] MEDS: CARDIZEM CD PO SCH (08:31)
--- NOTE | 2018-08-18 08:46 | ECHO REPORT ---
ORDER DATE: 08/16/2018 ADDENDUM: There is trace posterior and trace anterior pericardial effusion. There is no evidence of tamponade. cc: MD Josesito Hermosillo MD
[2018-08-18] MEDS: SPIRIVA INH SCH (09:46)
[2018-08-18] MEDS: MUCOMYST 20% INH SCH ×2 (09:46→19:42)
[2018-08-18] MEDS: BREO ELLIPTA 200/25 MCG INH INH SCH (09:46)
--- NOTE | 2018-08-18 10:14 | EKG Report ---
Test Performed on : 08/16/2018 4:23:38 PM Test Reason : NO order in MT Blood Pressure : / mmHG Vent. Rate : 077 BPM Atrial Rate : 077 BPM P-R Int : 156 ms QRS Dur : 082 ms QT Int : 386 ms P-R-T Axes : 076 047 070 degrees QTc Int : 436 ms Normal sinus rhythm. Normal ECG When compared with ECG of 16-AUG-2018 14:33, (Unconfirmed) Sinus rhythm. has replaced Atrial flutter. Vent. rate has decreased BY 47 BPM Confirmed by Umair BENSON, Noah Stoner ([id number]) on 08/20/2018 8:19:25 AM
--- NOTE | 2018-08-18 10:14 | EKG Report ---
Test Performed on : 08/16/2018 02:46:01 AM Test Reason : No order in [place] Blood Pressure : / mmHG Vent. Rate : 138 BPM Atrial Rate : 141 BPM P-R Int : 192 ms QRS Dur : 082 ms QT Int : 288 ms P-R-T Axes : 000 049 087 degrees QTc Int : 436 ms Sinus tachycardia. with premature supraventricular complexes. Cannot rule out Anterior infarct , age undetermined Abnormal ECG When compared with ECG of 14-AUG-2018 11:24, (Unconfirmed) premature supraventricular complexes. are now present Nonspecific T wave abnormality now evident in Lateral leads Confirmed by Umair BENSON, Noah Stoner ([id number]) on 08/20/2018 8:19:20 AM
--- NOTE | 2018-08-18 10:24 | PROGRESS NOTE ---
DATE: 08/18/2018 INTERVAL HISTORY: No acute events. The patient has not had a bowel movement since a day and a half. She denies any new complaints. She is complaining of some lower extremity edema today. We discussed about steroid effects. I answered all of her questions. We discussed about possibly transferring her out of [facility] to a medical floor. The patient also feels that she is able to cough up something. OBJECTIVE: Temperature 97.9 degrees pulse 100, respiratory rate 16, blood pressure 157/66 saturating 95% on room air. Input and output: Positive 170 mL yesterday. On physical examination, she does not appear in any acute distress. No pallor, cyanosis, clubbing, or icterus. Oral cavity is moist. Air entry bilaterally equal. No wheeze, rhonchi, or crackles, except mild bilateral crackles which sound more like upper respiratory tract sound. S1, S2 normal, not tachycardic. No murmur, rub, or gallop. She has a port over her right chest. Abdomen is soft, nontender. Active bowel sounds. Extremities: Mild bilateral ankle edema. Skin turgor is normal. Alert and oriented x3. LABORATORIES: Suggestive of normal hemoglobin, hematocrit, and platelet count. Normal electrolytes. Normal kidney function. Calcium of 7. These were lab tests performed yesterday. ASSESSMENT AND PLAN: 1. Acute colitis, differential being viral colitis versus immune checkpoint inhibitor-induced colitis because of nivolumab. I will stop intravenous antibiotic today since stool culture was negative and she does not have any leukocytosis. I will continue to taper steroids. Considering her severe diarrhea on presentation, I would continue steroids for 2 to 4 weeks. I will appreciate Oncology recommendations. 2. Supraventricular tachycardia, likely sinus tachycardia with intermittent paroxysmal atrial fibrillation versus atrial flutter with 2:1 block, now well controlled. Continue sustained- release diltiazem just because that was 1 episode and she does not have any features of congestive heart failure. I would hold off on adding anticoagulation. I would discuss the benefit versus risk of anticoagulation later and in general. The EKG, however, did not really detect atrial fibrillation, though I did think it was atrial fibrillation on traffic monitor specialist, so I am holding off on adding anticoagulation considering this equivocal finding. 3. Acute kidney injury because of volume depletion on presentation, now resolved. 4. Continue calcium supplement for hypocalcemia; continue acetylcysteine, ipratropium, fluticasone, vilanterol, and tiotropium for history of COPD which is not in exacerbation; continue home alprazolam and Mirtazapine for anxiety, and [place] for chronic pain. DISPOSITION: I will transfer patient to routine medical floor today and start her on potentially oral steroids. If she continues to do better, my plan is to discharge her in the next 24 to 48 hours. Plan of care discussed with her. Yesterday, I called patient's daughter in-law who is a registered nurse and talked with her extensively about the patient's medical course and answered all of her questions. cc: Josesito Thomas MD MTDD
[2018-08-18] MEDS: LOVENOX SUBQ SCH (13:55)
[2018-08-18] MEDS: CRESTOR PO SCH (21:55)
[2018-08-18] MEDS: PREDNISONE PO SCH (21:56)
[2018-08-18] MEDS: REMERON PO SCH (21:56)
[2018-08-19] MEDS: ATROVENT NEB INH SCH ×4 (03:32→19:36)
[2018-08-19 05:19] LABS: BASO# 0.02 X1000 (0.0-0.2); BASO% 0.2 % (0.0-0.8); HEMATOCRIT 30.4 % (37.0-47.0); HEMOGLOBIN 9.8 g/dL (12.0-16.0); IMM GRAN# 0.32 X1000 (0.0-0.04); LYMPH# 0.45 X1000 (1.2-3.4); LYMPH% 4.3 % (20.5-51.1); MCH 29.1 PG (27-31); MCHC 32.2 g/dL (33-37); MCV 90.2 FL (81-99); MONO% 7.6 % (1.7-9.3); MPV 9.6 FL (7.4-10.4); NEUT# 8.98 X1000 (1.4-6.5); NEUT% 84.9 % (42.2-75.2); PLT 338 X1000 (130-400); RBC 3.37 XMIL (4.2-5.4); RDW 14.9 % (11.5-14.5); WBC 10.57 X1000 (4.8-10.8)
[2018-08-19 06:03] LABS: AGAP 9; BUN 9 mg/dL (8-22); CHLORIDE 103 mmol/L (98-107); COSMO 281; CREATININE 0.7 mg/dL (0.5-0.9); ESTIMATED GFR > 60; GLUCOSE 177 mg/dL (70-104); MAGNESIUM 1.6 mg/dL (1.5-2.7); PHOSPHORUS 1.8 mg/dL (2.7-4.5); POTASSIUM 4.1 mmol/L (3.5-5.1); SODIUM 139 mmol/L (136-145); TCO2 27 mmol/L (25-35)
[2018-08-19] MEDS: PROTONIX PO SCH (06:50)
[2018-08-19] MEDS ORDERED: CALCIUM GLUCONATE 4.65 MEQ in NS 50 ML IV ONE (07:27)
[2018-08-19] MEDS: SPIRIVA INH SCH (07:56)
[2018-08-19] MEDS: MUCOMYST 20% INH SCH ×2 (07:56→19:38)
[2018-08-19] MEDS: BREO ELLIPTA 200/25 MCG INH INH SCH (07:56)
[2018-08-19] MEDS: CARDIZEM CD PO SCH (08:54)
[2018-08-19] MEDS: K-PHOS PO SCH ×3 (08:54→16:11)
[2018-08-19] MEDS: TUMS PO SCH ×2 (08:55→20:17)
[2018-08-19] MEDS: PREDNISONE PO SCH ×2 (08:55→20:17)
[2018-08-19] MEDS: MAGNESIUM SULFATE 2 GM/S.W.I. 2 GM/50 ML IVPB IV SCH ×2 (11:28→16:11)
[2018-08-19] MEDS: ASPIRIN PO SCH (11:28)
--- NOTE | 2018-08-19 12:25 | PROGRESS NOTE ---
DATE: 08/19/2018 INTERVAL HISTORY: Overnight when the patient was blowing her nose and was trying to come out of bed, her heart rate had increased to more than 150. She was not having any chest pain, shortness of breath, or dizziness during this episode except when the heart rate increased she did feel a little dizzy. She states she had again watery bowel movement earlier today. We discussed about increased stroke risk considering her medical condition. We also discussed about advantages and risks of starting her on anticoagulation, considering and understanding that, she decided that she would not to take any blood thinners. She is okay taking a baby aspirin though, which I will resume. I discussed with her about natural course of immune colitis and answered all of her questions. OBJECTIVE: Vital signs: Currently vitals, temperature 97.9, pulse 99, respiratory rate 18, blood pressure 165/83. She is saturating 96% on 1.5 L nasal cannula. PHYSICAL EXAMINATION: General: Appears cachetic, not in any acute distress. No pallor, cyanosis, clubbing, or icterus. Oral cavity is moist. Lungs: Air entry bilaterally equal. No wheeze, rhonchi, or crackles. Heart: S1, S2 normal, tachycardic, appears sinus at bedside monitor. No murmur, rub, or gallop. She has a left-sided chest. Abdomen: Soft, nontender. Active bowel sounds. Extremities: No lower extremity edema. Skin: Turgor is normal. Neurologic: She is alert and oriented x3. LABORATORY: No leukocytosis, normocytic anemia, normal platelet count. Normal electrolytes except hypocalcemia which is being repleted. Her magnesium is also low, which I am going to replete as well. IMAGING: No new imaging data today. Echocardiogram had suggested ejection fraction of 65% with moderate mitral annular calcification without any mitral stenosis and only mild mitral regurgitation. ASSESSMENT AND PLAN: 1. Acute colitis likely viral colitis versus immune checkpoint inhibitor-induced colitis because of nivolumab use status post intravenous antibiotic that was stopped on 08/18. Continue p.o. steroids and taper over 4 months. Start on lomotil. 2. Paroxysmal supraventricular tachycardia. ?atrial fibrillation with rapid ventricular rate. She does have recurrent tachycardia on physical exertion. I increased her Cardizem dose to 240 mg and will start her on baby aspirin. Her CHADS-Vasc score is 4 inviting a high stroke risk, however, the patient does not have want to be started on blood thinners considering risk associated with it. I also advised an outpatient Cardiology followup. Echocardiogram had mild mitral annular calcification with normal ejection fraction. 3. Hypocalcemia and hypomagnesemia being repleted. Follow up intact PTH. Vitamin D is normal. 4. Acute kidney injury on presentation now resolved, continue acetylcysteine, ipratropium nebulization, fluticasone, vilanterol, and tiotropium for history of chronic obstructive pulmonary disease which is not any exacerbation; home alprazolam and mirtazapine for anxiety; [place] for chronic pain. 5. Small cell lung cancer: Currently on chemotherapy. Last session in 07/2018. She likely would not be a candidate for Nivolumab in future considering current colitis. 5. Disposition: The patient remains inside the hospital as she is complaining of watery stools as well as dizziness and her atrial flutter or suspected fibrillation or a form of supraventricular tachycardia. I have increased her diltiazem dose. If she continues to have this tachycardic episode, then my plan is to consult Cardiology tomorrow. Plan of care discussed with her. All of her questions have been answered. cc: Josesito Thomas MD MTDD
[2018-08-19] MEDS: LOVENOX SUBQ SCH (14:05)
[2018-08-19] MEDS ORDERED: CARDIZEM CD PO ONE (15:22)
[2018-08-19] MEDS ORDERED: CARDIZEM PO SCH (16:00)
--- NOTE | 2018-08-19 16:23 | EKG Report ---
Test Performed on : 08/19/2018 4:13:30 PM Test Reason : atrial flutter Blood Pressure : / mmHG Vent. Rate : 096 BPM Atrial Rate : 096 BPM P-R Int : 138 ms QRS Dur : 088 ms QT Int : 332 ms P-R-T Axes : 077 046 073 degrees QTc Int : 419 ms Normal sinus rhythm. Moderate voltage criteria for LVH, may be normal variant Nonspecific ST abnormality Abnormal ECG When compared with ECG of 16-AUG-2018 16:23, (Unconfirmed) No significant change was found Confirmed by Umair BENSON, Noah Stoner ([id number]) on 08/20/2018 8:21:17 AM
[2018-08-19] MEDS: LOMOTIL PO SCH (17:22)
--- NOTE | 2018-08-19 18:05 | CARDIOLOGY CONSULTATION ---
DATE: 08/19/2018 REQUESTING PHYSICIAN: Hospitalist service. REASON FOR CONSULTATION: Tachycardia. HISTORY: Ms. Vargas is a 77-year-old female patient of the Oncology service, Dr. Puente at [facility] in [place]. She was in her usual state of health up until , 08/14, when after getting her chemotherapy dose, she developed generalized fatigue and diarrhea. She went to the emergency room on 08/14. She was not eating. She was nauseous. They did a CT scan of the abdomen and pelvis at that time that showed probable colitis of the ascending colon, severe diverticulosis of the sigmoid colon, severe vascular disease including the superior mesenteric artery, distended gallbladder, nonspecific fatty liver and possible aspiration of chronic atypical pneumonia of the lower lobes bilaterally. There was an indeterminate small left adrenal gland nodule. The patient was admitted. 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 It seems to be, by looking at the echocardiogram and also the electrocardiographic strips that they have on her, that she may be going into short or brief runs of multifocal atrial tachycardia. At any rate, she has been complaining of having chest tightness over the past couple of days. She is coughing. She is wheezing, and she is really congested in the respiratory system. PAST MEDICAL HISTORY: Positive for hypertension and COPD. She was found to have a small-cell lung cancer when she was living in [place], and from there she had to move to the [facility] to stay with her only son. She was referred to the [facility] in [place], Dr. Puente, and she has been seeing Dr. Crowley, nuclear medicine chief technologist in [place]. Dr. Knox is her primary physician in [place]. PAST SURGICAL HISTORY: She had hysterectomy. She has a Port-A-Cath on the left side. SOCIAL HISTORY: She lives with son. She quit smoking about a year ago. She had to retire from [employer] [facility] 2013. FAMILY HISTORY: Noncontributory. ALLERGIES: She is intolerant to aspirin, bacitracin, clindamycin, Avelox, neomycin, Levaquin and penicillins. MEDICATIONS: Her home medications include albuterol, alprazolam, benazepril, fluticasone, hydrocodone, mirtazapine, Crestor and Spiriva. REVIEW OF SYSTEMS: Her functional capacity has decreased a great deal since the diagnosis of cancer. She has no previous history of coronary heart disease. No other positives. PHYSICAL EXAMINATION: Blood pressure is 160/81, pulse runs from 90 to 110. Temperature 97.7 degrees, respirations 20. She appears to be chronically ill. HEENT unremarkable. Chest: Bilateral rhonchi and expiratory wheezes. Heart sounds are regular and rhythmic at times and then suddenly she jumps into a rapid irregular rate and goes back down. Abdomen is slightly prominent. Bowel sounds diminished. Extremities showed decreased pulses. There is trace ankle edema. Neurologic exam nonfocal. Moves all 4 extremities. LABORATORY DATA: White cell count is 10,570, hemoglobin 9.8, hematocrit 30.4. Sodium 139, potassium 4.1, BUN is 9, creatinine 0.7. Albumin is 2.5. PTH is elevated at 378 mcg/mL. Phosphorus is low at 1.8. Calcium is 6.6; however, this is total calcium. Of note, she had an echocardiogram just a couple of days ago that showed normal left ventricular systolic function and no evidence of any significant valvular abnormality. There was a trivial pericardial effusion of no significance. IMPRESSION: 1. Patient who seems to have bouts of multifocal atrial tachycardia. 2. Small-cell lung cancer, on chemotherapy. 3. Chronic obstructive pulmonary disease with acute exacerbation. 4. History of hypertension. 5. Extensive vascular atherosclerotic changes involving the abdominal aorta/iliofemoral vessels. 6. Possible pneumonia/pneumonitis. RECOMMENDATIONS: At this point in time, I would suggest to use diltiazem to try to control her bouts of rapid heart rate. We need to optimize her electrolytes. The primary service is going to investigate disorders of the parathyroid gland or parathyroid-like activity. We will see how she does. cc: Agapito Bosch MD [facility]
[2018-08-19 18:16] LABS: C REACTIVE PROT QUANT 11.04 mg/L (0.00-5.00)
[2018-08-19 18:38] LABS: PREALBUMIN 22.1 mg/dL (20-40)
[2018-08-19] MEDS ORDERED: TUMS PO SCH (18:45)
[2018-08-19] MEDS: CRESTOR PO SCH (20:17)
[2018-08-19] MEDS: REMERON PO SCH (20:17)
[2018-08-19] MEDS ORDERED: CARDIZEM CD PO SCH (21:00)
[2018-08-19 22:50] LABS: CALCIUM 6.6 mg/dL (8.8-10.2)
[2018-08-20] MEDS: ATROVENT NEB INH SCH ×2 (03:29→09:19)
[2018-08-20] MEDS: XANAX PO PRN (06:07)
[2018-08-20] MEDS: PROTONIX PO SCH (06:07)
[2018-08-20] MEDS: NORCO-10 PO PRN (06:07)
--- NOTE | 2018-08-20 07:32 | EKG Report ---
Test Performed on : 08/20/2018 06:23:12 AM Test Reason : tachycardia Blood Pressure : / mmHG Vent. Rate : 079 BPM Atrial Rate : 079 BPM P-R Int : 144 ms QRS Dur : 082 ms QT Int : 392 ms P-R-T Axes : 072 045 068 degrees QTc Int : 449 ms Normal sinus rhythm. Possible Left atrial enlargement Borderline ECG When compared with ECG of 19-AUG-2018 16:13, (Unconfirmed) No significant change was found Confirmed by Umair BENSON, Noah Stoner ([id number]) on 08/20/2018 8:21:28 AM
--- NOTE | 2018-08-20 08:16 | CARDIOLOGY PROGRESS NOTE ---
DATE: 08/20/2018 CHIEF COMPLAINT: Shortness of breath, tachycardia. SUBJECTIVE: Ms. Vargas feels a little more comfortable today regarding the abdominal complaints. Breathing is still hard. She is coughing up phlegm and at night, she could not breathe and rest. She denies having chest pain. Telemetry indicates no further bouts of tachycardia. OBJECTIVE: VITAL SIGNS: Blood pressure 157/67, temperature 98.1 degrees, pulse 85, respirations 17. GENERAL: She is awake, alert, oriented. No distress. HEENT: Unremarkable. CHEST: Bilateral rhonchi, wheezes. Diminished breath sounds bilaterally. HEART: Sounds are regular rhythm. I do not hear a gallop or murmur. ABDOMEN: Nontender, less distended. EXTREMITIES: Showed decreased pulses, no edema. NEUROLOGICAL: Follows commands. Moves 4 extremities. BLOOD WORK: Hemoglobin from yesterday was normal. Her sodium, potassium and electrolytes from yesterday except for calcium were all normal. IMPRESSION: 1. Patient with multifocal atrial tachycardia. 2. COPD exacerbation. 3. History of small cell lung cancer bilateral on chemotherapy. 4. Possible colitis. 5. Severe vascular disease involving the abdominal aorta. 6. History of hypertension. RECOMMENDATIONS: At this time, we will continue Diltiazem to control her arrhythmia. I will request a consultation with Pulmonary because she really needs to establish herself with a order tracer in this area. We will observe her clinical course. cc: Agapito Bosch MD
[2018-08-20] MEDS: LOMOTIL PO SCH ×2 (08:29→13:01)
[2018-08-20] MEDS: TUMS PO SCH (08:30)
[2018-08-20] MEDS: PREDNISONE PO SCH (08:30)
[2018-08-20] MEDS: ASPIRIN PO SCH (08:30)
[2018-08-20] MEDS: K-PHOS PO SCH ×2 (08:30→13:01)
[2018-08-20] MEDS ORDERED: CARDIZEM CD PO SCH ×2 (09:00)
[2018-08-20] MEDS: BREO ELLIPTA 200/25 MCG INH INH SCH (09:18)
[2018-08-20] MEDS: SPIRIVA INH SCH (09:18)
[2018-08-20] MEDS: MUCOMYST 20% INH SCH (09:19)
[2018-08-20] MEDS ORDERED: CALCIUM GLUCONATE 4.65 MEQ in NS 50 ML IV ONE (11:10)
[2018-08-20] MEDS ORDERED: MUCINEX PO SCH (11:15)
[2018-08-20 12:05] VITALS: BP 150/61
[2018-08-20] MEDS: LOVENOX SUBQ SCH (13:01)
--- NOTE | 2018-08-20 14:21 | CONSULTATION ---
DATE OF CONSULTATION: 08/20/2018 REASON FOR CONSULTATION: COPD exacerbation. HISTORY OF PRESENT ILLNESS: Ms. Vargas is a 77-year-old with a long history of COPD, chronic hypoxemic respiratory failure, who was diagnosed with limited stage small cell carcinoma in March of 2017. She had a Port-A-Cath placed and was treated. Although she lived in [place], she moved her care to [facility]. She has been followed since that time by Dr. Dwight Puente from oncology and Dr. Crowley from pulmonary medicine. Patient lives in [place] and is anticipating transferring her care to this [facility]. The patient apparently had complete response but did not receive radiation to the brain. She has been initiated on Opdivo and Yervoy. Her last dose of Opdivo was on August 01 and she reports several days after that, she became progressively weak, along with increasing diarrhea. She underwent a CT scan of the abdomen and pelvis which revealed probable colitis. She has been initiated on steroids. She continues to improve and will likely be discharged later today. She continues to have shortness of breath with cough and wheeze. PAST MEDICAL HISTORY/PROBLEM LIST: 1. Small cell carcinoma as per above. 2. Colitis as per above. 3. Status post hysterectomy. 4. Status post Port-A-Cath placement. 5. Gastroesophageal reflux, which has become more severe during this hospitalization. SOCIAL HISTORY: Prior tobacco use but she has not smoked since her diagnosis. FAMILY HISTORY: Noncontributory to current presentation. REVIEW OF SYSTEMS: Notable for generalized weakness, cough and wheeze, shortness of breath, diarrhea which has improved on steroids. PHYSICAL EXAMINATION: General: Reveals a thin, white female resting comfortably and in no distress. BP 150/61, heart rate 80, respiratory rate 15, oxygen saturation 100% on 2 L per nasal cannula. HEENT: Pupils are equal and reactive. Oropharynx is clear. Neck: Supple. Chest: Reveals prolonged expiratory phase with scattered wheezing and rhonchi. Cardiac Examination: S1- S2. Abdomen: Soft. Extremities: Reveal trace to 1+ peripheral edema. LABORATORIES: Chest x-ray on admission reveals hyperinflation and flattening of the diaphragm. The patient previously had infiltrates in the lower lobes which have resolved. Arterial blood gas on admission, pH 7.40, pCO2 of 38, PO2 of 102 on 2 L per nasal cannula. IMPRESSION: A 77-year-old with: 1. Severe chronic obstructive pulmonary disease. 2. Chronic obstructive pulmonary disease exacerbation. 3. Chronic hypoxemic respiratory failure. 4. Small cell carcinoma of the lungs, on Opdivo and Yervoy. 5. Colitis, possibly immune-related. PLAN: 1. Continue oxygen at the time of discharge. 2. I agree with steroids for her colitis. This will also benefit her pulmonary status. 3. Reflux precautions were discussed given her doses of steroids. 4. Continue to use her nebulizer 2 to 3 times per day. 5. Okay for Mucinex 600 mg twice a day. 6. She currently has been maintained on Spiriva and Symbicort. She will continue these medicines until followup. cc: Hernán Mayfield MD
--- NOTE | 2018-08-20 20:07 | DISCHARGE SUMMARY ---
ADMISSION DATE: 08/14/2018 DISCHARGE DATE: 08/20/2018 PRIMARY CARE PHYSICIAN: Loyd Knox MD. ADMISSION DIAGNOSES: 1. Diarrhea, probable colitis of the ascending colon. 2. Bilateral small cell lung cancer currently on Chemotherapy 3. Chronic obstructive pulmonary disease. 4. Hypertension. 5. History on admission was hypotensive with systolic pressures in the 90s. 6. Gastroesophageal reflux disease. DISCHARGE DIAGNOSES: 1. Acute colitis, likely viral colitis versus immune checkpoint inhibitor induced colitis because of nivolumab status post intravenous antibiotic that was stopped on 08/18/2018. 2. Paroxysmal SVT versus atrial fibrillation with rapid ventricular response. 3. Hypocalcemia and hypomagnesemia repleted. 4. Small-cell lung cancer with last treatment in July of 2018. SUMMARY OF FINDINGS: This is a 77-year-old female who presented to the emergency room with generalized weakness that had increased over the past 4 to 5 weeks, and diarrhea that has developed in the last 9 days. States that over a month or so she has not had a taste for food, but was able to take in liquids, but for the past 2 weeks she has taken in much less each day. She states that she has been taking Imodium AD for her diarrhea. She denied any vomiting or nausea, or any black or bloody stools. CT of the abdomen and pelvis revealed a possible colitis of the ascending colon, severe diverticulosis of the sigmoid colon as well as aspiration or chronic atypical pneumonia of the lower lobes bilaterally. She noted a 6 pounds weight loss over the last month so she was admitted and placed on IV Solu-Medrol. We obtained stools for Clostridium difficile antigen that were negative, and for the C. Difficile toxin that were negative. We consulted Hematology and Cardiology. We increased her Cardizem to 240 mg, and we placed her on a baby aspirin. Her ALFONSO Vasc score was 4, which is inviting a high stroke risk, but it does not want to be on blood thinners considering risk associated with that. We obtained an echocardiogram on 08/16/2018 that showed an ejection fraction of 65%. It is now felt that she can safely be discharged home. She will need to have a repeat BMP in 5 days. DISCHARGE MEDICATIONS: 1. Xanax 0.25 mg p.o. b.i.d. p.r.n. 2. Aspirin 81 mg p.o. daily. 3. Tums 500 mg p.o. t.i.d. 4. Cardizem CD 240 mg p.o. daily. 5. Lomotil 1 p.o. t.i.d. 6. Breo Ellipta 1 inhalation daily. 7. Mucinex 600 mg p.o. b.i.d. 8. [place] 10 1 p.o. t.i.d. p.r.n. 9. Mirtazapine 45 mg p.o. at bedtime. 10. Prednisone 60 mg p.o. daily. 11. Crestor 5 mg p.o. at bedtime. 12. Spiriva 18 mcg inhalation daily. 13. DuoNeb 4 times daily. 14. Aspirin 81 mg p.o. daily. FOLLOW-UP: She will need to follow up with her primary care physician in the next 1 to 2 weeks. She will also need follow-up with Hematology-Oncology, pulmonology, and Cardiology and will call each of those offices and schedule her appointment. All discharge instructions have been reviewed with the patient and she verbalizes understanding. TIME SPENT: This is a 35 minute discharge. Dictated by JESSICA Pritchett for Josesito Thomas MD cc: JESSICA Pritchett MD Neil Yeager, MD I agree with most components of discharge summary mentioned above. A separate addendum has been dictated. [facility]
--- NOTE | 2018-08-20 20:51 | DISCHARGE SUMMARY ---
ADMISSION DATE: 08/14/2018 DISCHARGE DATE: 08/20/2018 ADDENDUM: This is an addendum to the discharge summary dictated by the nurse practitioner. I agree with most components of discharge summary. In brief, Ms. Vargas is a 77-year-old lady with history of a small cell lung cancer, localized stage, who has been receiving chemotherapy with nivolumab, who comes in with immune checkpoint inhibitor induced colitis, diarrhea, volume depletion, and acute kidney injury. I treated her with intravenous fluids and holding her LAKESHA inhibitors and starting steroids, and she started feeling better. While inside the hospital, she also developed paroxysms of narrow complex supraventricular tachycardia, suspicious of atrial flutter versus multifocal atrial tachycardia, for which we started her on diltiazem. At the time of discharge, she is hemodynamically stable. SUBJECTIVE: She is complaining of some congestion and I am going to start her on guaifenesin. VITAL SIGNS: Temperature 98.3 degrees, pulse 86, respiratory rate 15, blood pressure 150/73, saturating 96% on 2 L nasal cannula. PHYSICAL EXAMINATION: General: Cachectic, not in acute distress. Oral cavity: Moist. Lungs: Air entry bilaterally equal. No wheeze or rhonchi. Mild bilateral crackles. Cardiac: S1, S2, normal sinus rhythm. No murmur, rub, or gallop. Chest: She has a left-sided chest port. Abdomen: Soft, nontender. Active bowel sounds. Extremities: No lower extremity edema. Neurologic: She is alert and oriented x3. Her ionized calcium is 1.01. She is getting repletion. DISCHARGE INSTRUCTIONS: Patient is provided repeat BMP slip to get a repeat calcium done, and she will be provided calcium supplementation. She is also provided steroid script, and she should take 60 mg once daily, and see Dr. Fischer in his office where he is planning to decrease the steroid and taper it off gradually. Dr. Fischer has also suggested that she should not receive any nivolumab in the future. I have discussed the plan of care with patient extensively. I had also talked with her son previously and [id number] and had informed them. A pulmonology follow up and a prescription of Z-marie was provided to her as per pulm recs. cc: Josesito Thomas MD [facility]
== END 2018-08-20 15:10 | disposition home health service (06) | DRG 394 ==
LOC: ED 11:01 → 4N 17:36 → SUATTDRO 17:36 → 3S 08-16 14:29
PROVIDERS: ATTEND Internal Medicine
CPT/HCPCS: 71010; 71045; 74177; 80048; 80053; 81001; 82040; 82306; 82330; 82805; 82948; 83605; 83690; 83735; 83970; 84100; 84134; 84443; 85025; 85651; 86140; 87045; 87046; 87088; 87205; 87324; 87449; 89055; 93005; 93010; 93306; 94640; 94761; 94799; 96360; 96361; 97162; 97530; 99285; A9270; J0610; J0696; J1650; J2930; J3475; J7030; J7506; J7512; Q9967; S0030; XXXXX

== ENCOUNTER 2018-09-11 13:41 | Inpatient (IN) ==
--- NOTE | 2018-09-11 14:54 | PROVIDER DOCUMENTATION ---
HPI-General Adult - General Chief Complaint: Altered Mental Status Stated Complaint: GENERAL ADULT Time Seen by Provider: 09/11/18 14:25 Source: patient Allergies/Adverse Reactions: Patient Allergies Allergy/AdvReac Type Severity Reaction Status Date / Time aspirin Allergy RUNNY NOSE Verified 08/14/18 11:48 bacitracin Allergy RASH Verified 08/14/18 11:48 [From Neosporin ([id number])] clindamycin Allergy Unknown Verified 08/14/18 11:48 moxifloxacin [From Avelox] Allergy SWELLING Verified 08/14/18 11:48 neomycin Allergy RASH Verified 08/14/18 11:48 [From Neosporin ([id number])] polymyxin B Allergy RASH Verified 08/14/18 11:48 [From Neosporin ([id number])] fluticasone AdvReac Unknown Unknown Verified 08/14/18 11:48 levofloxacin [From Levaquin] AdvReac Unknown Verified 08/14/18 11:48 Penicillins AdvReac HIVES Verified 08/14/18 11:48 Home Medications: Home Medication List Medication Instructions Recorded Confirmed Last Taken Type Albuterol 2.5MG/Ipratrop 0.5MG 3 ml INH 4XDAY 08/02/17 08/14/18 12/23/17 History [Duoneb (A & A)] Fluticasone/Vilanterol [Breo 1 each IH DAILY 08/02/17 08/14/18 12/24/17 10:00 History Ellipta 200-25 Mcg INH] Mirtazapine 45 mg PO HS 08/02/17 08/14/18 12/23/17 20:00 History Rosuvastatin Calcium [Crestor] 5 mg PO HS 08/02/17 08/14/18 12/24/17 10:00 History Alprazolam [Xanax] 0.25 mg PO BID PRN 12/24/17 08/14/18 12/24/17 10:00 History Tiotropium [place] Inhaler 18 mcg IH DAILY 12/24/17 08/14/18 12/24/17 10:00 History [Spiriva] Hydrocodone/Acetaminophen 1 ea PO TID PRN 30 Days #90 tab 12/29/17 08/14/18 Unknown Rx [Hydrocodone-Acetamin 10-325 mg] Aspirin 81 mg PO DAILY #30 chewtab 08/20/18 Unknown Rx Azithromycin [Zithromax Z-Mason] 250 mg PO DIRECTED #1 pkg 08/20/18 Unknown Rx Calcium Carbonate Chew [Tums] 500 mg PO TID@2100,0900,1500 #90 08/20/18 Unknown Rx tab.chew Diltiazem C.d. [Cardizem Cd] 240 mg PO DAILY #60 cap 08/20/18 Unknown Rx Diphenoxylate/Atropine [Lomotil] 1 ea PO TID PRN #15 tab 08/20/18 Unknown Rx Guaifenesin E.r. [Mucinex] 600 mg PO BID #20 tab 08/20/18 Unknown Rx Prednisone 60 mg PO DAILY #60 tab 08/20/18 Unknown Rx - History of Present Illness -Gen Adult Nature of Presenting Problems: 77 YOF PRESENTS WITH FAMILY WHO REPORTS SHE HAS HAD AMS SINCE LAST NIGHT AT [facility] 11PM WELL SWELLING IN BLE. SHE IS ON UNKNOWN TREATMENTS FOR SCLC. SHE WAS RECENTLY IN THE HOSPITAL FOR COMPLICATIONS RELATED TO HER TREATMENTS PER THE FAMILY. Location of Pain/Injury: reports: none Quality of Pain: reports: none Onset/Duration: reports: last night (11PM) Timing: reports: still present Modifying Factors: improves with: nothing Associated Symptoms: reports: other (EDEMA IN BLE) Similar Symptoms Previously?: No Recently seen or treated by another doctor?: Yes (FOR SCLC) Review of Systems - Adult - REVIEW OF SYSTEMS - ADULT Constitutional: reports: no symptoms reported, see HPI Eyes: reports: no symptoms reported. denies: see HPI, discharge, dry eyes, decreased vision, blurred vision, double vision, eye pain, redness, other Ears, Nose, Mouth & Throat: reports: no symptoms reported. denies: see HPI, ear discharge, ear pain, hearing loss, tinnitus, epistaxis, sinus problem, nose pain, loose teeth, mouth/dental pain, mouth swelling, hoarseness, throat pain, throat swelling, other Cardiovascular: reports: edema. denies: no symptoms reported, see HPI, chest pain, heart murmur, irregular heart rate, orthopnea, palpitations, poor circulation, PND, syncope, other Respiratory: reports: no symptoms reported. denies: see HPI, chronic cough, cough, dyspnea on exertion, excessive sputum production, hemoptysis, pleurisy, shortness of breath, wheezing, other Gastrointestinal: reports: no symptoms reported. denies: see HPI, abdominal pain, hematemesis, constipation, diarrhea, difficulty swallowing, frequent heartburn, nausea, poor appetite, rectal bleeding, vomiting, other Genitourinary: reports: no symptoms reported. denies: see HPI, dysuria, discharge, frequency, flank pain, frequent UTI's, hematuria, hesitency, incontinence, urinary retention, urgency, other Musculoskeletal: reports: muscle weakness (GENERALIZED WEAKNESS). denies: no symptoms reported, see HPI, bone pain, back pain, frequent leg cramps, joint pain, joint swelling, muscle aches, neck pain, other Integumentary: reports: other (BRUISING). denies: no symptoms reported, see HPI, hives, hair loss, itching, mole changes, nail changes, rash, skin sores/ulcer, skin thickening Neurological: reports: other (CONFUSION). denies: no symptoms reported, see HPI, ataxia, dizziness/vertigo, headache/migraines, loss of balance, numbness, paresthesia, seizure, slurred speech, syncope, tremors Psychiatric: reports: no symptoms reported. denies: see HPI, anxiety, anti-de pressant use, alcohol/drug dependence, depression, emotional problems, insomnia, panic attacks, suicidal thoughts, other Endocrine: reports: no symptoms reported. denies: see HPI, change in skin pigment, excessive sweating, goiter, cold intolerance, heat intolerance, increa sed hunger, increased thirst, polyuria, other Hematologic/Lymphatic: reports: no symptoms reported. denies: see HPI, blood clots, easy bruising, low blood count, lymphedema, prolonged bleeding, swollen lymph nodes, transfusions, other Allergic/Immunologic: reports: no symptoms reported. denies: see HPI, allergic reactions, allergic rhinitis, asthma, eczema, food allergy, frequent infections, hay fever, hives, positive PPD, urticaria, other Past History - Adult - PAST MEDICAL HISTORY-ADULT Review of Records: reports: Nursing Assessment Review, Social history reviewed & non-contributory. Cardiovascular: reports: HTN, hyperlipidemia Respiratory: reports: COPD, cancer (Lung-SMALL CELL) Genitourinary: reports: kidney disease Neurological: reports: TIA Other Conditions: reports: denies history - PRIOR SURGERIES/PROCEDURES Surgical/Procedure History: reports: hysterectomy - IMMUNIZATION STATUS Childhood Immunizations: See Nurse Assessment Flu Vaccine: See Nurse Assessment - FAMILY HISTORY Family History: reviewed, not pertinent Physical Exam-General - PHYSICAL EXAM-ADULT Initial Vital Signs Reviewed: Yes - CONSTITUTIONAL General Appearance: alert, thin, other (WILL NOT FOLLOW COMMANDS, CONFUSED) - EYES Eyes: PERRL/EOMI - HEAD, EARS, NOSE, MOUTH & THROAT HENMT: normocephalic/atraumatic, moist mucous membranes, normal ENT inspection - NECK Neck: full range of motion - RESPIRATORY Respiratory: chest non-tender, no pleuratic chest pain, no respiratory distress, no accessory muscle use, rhonchi - CARDIOVASCULAR Cardiovascular: normal peripheral pulses, regular rate, rhythm. negative: no edema - GASTROINTESTINAL (ABDOMEN) Abdominal Exam: normal bowel sounds, non tender, soft - LYMPHATIC Lymphatic: no adenopathy - MUSCULOSKELETAL Back Exam: normal inspection Extremity: non-tender, swelling - SKIN Integumentary: warm/dry, other (BRUISING) - NEUROLOGIC Neurologic: grossly normal - PSYCHIATRIC Psych/Mental Status: normal mood/affect, oriented x 3 Progress - PLAN OF CARE/RESULTS Progress/Plan/Lab Results: Vital Signs - 8 hr 09/11/18 13:58 Temperature 97.7 F Pulse Rate 78 Respiratory Rate 20 Blood Pressure 122/59 O2 Sat by Pulse Oximetry 95 Orders Category Date Time Status OK to use Port-A-Cath ORDERED Care 09/11/18 14:46 Ordered CHEST-2 VIEWS [RAD] Stat Exams 09/11/18 14:[address] HEAD W/O CONTRAST [CT] Stat Exams 09/11/18 14:46 Ordered BLOOD CULTURE [BLDCUL] Stat Lab 09/11/18 14:46 Uncollected CBC WITH ELECTRONIC DIFF [HEME] Stat Lab 09/11/18 14:44 Uncollected COMPREHENSIVE METABOLIC PANEL [CHEM] Stat Lab 09/11/18 14:46 Uncollected LACTATE, PLASMA [CHEM] Stat Lab 09/11/18 14:46 Uncollected PROTIME WITH INR [COAG] Stat Lab 09/11/18 14:46 Uncollected PTT [COAG] Stat Lab 09/11/18 14:46 Uncollected URINALYSIS W/POSS RFLX CULT [URINALYSIS] Stat Lab 09/11/18 14:46 Uncollected URINE DRUG SCREEN Stat Lab 09/11/18 14:46 Uncollected EKG [EKG] Stat Ther 09/11/18 14:05 Ordered Result Diagrams: 09/11/18 16:40 09/11/18 16:40 - EKG 1 Time of EKG reading by physician:: 15:01 EKG Read and Signed by:: Prashanth Ries EKG Interpretation (*Must complete 3 of following elements*): Abnormal Rate: 78 Rhythm: NSR WITH HEAVY ARTIFACT WITH POOR R WAVE PROGRESSION Peck: normal ST Wave: normal - XRAY 1 XRAY Study: Chest Impression: See EMR Report (EXAM: CHEST-2 VIEWS HISTORY: SCLC TECHNIQUE: Two views COMPARISON: 08/14/2018 FINDINGS: The lungs are hyperexpanded. The heart is not enlarged. The vessels are not distended. There are no infiltrates. No pleural effusions. No change in the left-sided portacatheter. IMPRESSION: Stable chest) - CT/MRI 1 CT Study: Head Impression: Abnormal (COMMENT: There is periventricular white matter lucency particularly in the frontal lobes and adjacent to the left atrium and the parietal lobe. There is no evidence of bleed or abnormal extra-axial fluid collection. The calvarium is intact. IMPRESSION: Chronic ischemic microvascular disease. No evidence of acute disease.) Departure - Departure Date of Disposition Decision: 09/11/18 Time of Disposition Decision: 17:43 DIAGNOSIS: Hyponatremia Disposition: ADMITTED INPATIENT 09 Certified Medical Emergency: Emergent Condition: Stable Referrals and Follow-Ups: Loyd Knox [Primary Care Provider] - - Critical Care Note This patient required my direct & personal management of CC.: Yes Total Time (mins): 31 Critical Care Statement: This patient required my direct personal management to treat or rule out processes, the absence of which, could potentiallly result in sudden, clinically significant life or limb threatening deterioration. Attestation - Physician/ JOE Attestation Patient care was provided by Advanced Practice Provider:: Yes Advanced Practice Provider:: Caridad Sanchez Advanced Practice Provider documentation review:: The Mid-level provider documentation, treatment plan and medical decision making was reviewed by the physician who agrees with all treatment and medical decision making by the [facility]. The physician spent face to face time with patient:: No Advanced Practice Provider documentation review:: Supervising physician onsite and consulted in the evaluation and care of this patient. The physician did not have a face to face encounter with the patient.
--- NOTE | 2018-09-11 15:27 | Diag Imaging Result Doc PS360 ---
EXAM: CT HEAD W/O CONTRAST 09/11/2018 HISTORY: CONFUSION HX OF SCLC TECHNIQUE: This exam was performed using automated exposure control, adjustment of mA or kV according to patient size, and/or use of iterative reconstruction technique. COMMENT: There is periventricular white matter lucency particularly in the frontal lobes and adjacent to the left atrium and the parietal lobe. There is no evidence of bleed or abnormal extra-axial fluid collection. The calvarium is intact. IMPRESSION: Chronic ischemic microvascular disease. No evidence of acute disease. Electronically signed by Matt Velazco 09/11/2018 3:24 PM
--- NOTE | 2018-09-11 15:33 | Diag Imaging Result Doc PS360 ---
EXAM: CHEST-2 VIEWS HISTORY: SCLC TECHNIQUE: Two views COMPARISON: 08/14/2018 FINDINGS: The lungs are hyperexpanded. The heart is not enlarged. The vessels are not distended. There are no infiltrates. No pleural effusions. No change in the left-sided portacatheter. IMPRESSION: Stable chest Electronically signed by Kannan Mccann 09/11/2018 3:30 PM
--- NOTE | 2018-09-11 16:13 | EKG Report ---
Test Performed on : 09/11/2018 2:08:16 PM Test Reason : ams Blood Pressure : / mmHG Vent. Rate : 078 BPM Atrial Rate : 078 BPM P-R Int : 132 ms QRS Dur : 076 ms QT Int : 370 ms P-R-T Axes : 082 045 083 degrees QTc Int : 421 ms Normal sinus rhythm. Septal infarct , age undetermined Abnormal ECG When compared with ECG of 20-AUG-2018 06:23, No significant change was found Unconfirmed Result
[2018-09-11 16:53] LABS: BASO# 0.01 X1000 (0.0-0.2); BASO% 0.1 % (0.0-0.8); EOS# 0.07 X1000 (0.0-0.7); EOS% 0.8 % (0.0-10.0); HEMATOCRIT 34.6 % (37.0-47.0); HEMOGLOBIN 11.6 g/dL (12.0-16.0); IMM GRAN% 1.2 % (0.0-0.5); LYMPH# 1.08 X1000 (1.2-3.4); LYMPH% 12.8 % (20.5-51.1); MCH 30.7 PG (27-31); MCHC 33.5 g/dL (33-37); MCV 91.5 FL (81-99); MONO# 0.92 X1000 (0.11-0.59); MONO% 10.9 % (1.7-9.3); MPV 9.7 FL (7.4-10.4); NEUT# 6.29 X1000 (1.4-6.5); NEUT% 74.2 % (42.2-75.2); PLT 229 X1000 (130-400); RBC 3.78 XMIL (4.2-5.4); RDW 15.7 % (11.5-14.5); WBC 8.47 X1000 (4.8-10.8)
[2018-09-11 16:58] LABS: INR 0.87; PROTIME 12.6 Seconds (11.0-16.0)
[2018-09-11 16:59] LABS: PTT 22.9 Seconds (22.3-41.8)
[2018-09-11 17:32] LABS: ALBUMIN 3.9 g/dL (3.5-5.0); CREATININE 1.2 mg/dL (0.5-0.9); POTASSIUM 3.4 mmol/L (3.5-5.1); TOTAL BILIRUBIN 0.43 mg/dL (0.20-1.00); TOTAL PROTEIN 5.9 g/dL (6.3-8.3)
[2018-09-11] MEDS ORDERED: NS 1,000 ML IV ONE ×2 (17:38→18:34)
[2018-09-11] MEDS ORDERED: KLOR-CON PO ONE (18:42)
[2018-09-11] MEDS ORDERED: PREDNISONE PO ONE (18:58)
[2018-09-11 19:42] LABS: URINE SOURCE CLEAN CATCH
[2018-09-11 19:50] LABS: BILIRUBIN URINE NEGATIVE (NEGATIVE); BLOOD URINE NEGATIVE (NEGATIVE); COLOR STRAW; GLUCOSE URINE NEGATIVE (NEGATIVE); KETONE URINE NEGATIVE (NEGATIVE); PH URINE 7.5; PROTEIN URINE NEGATIVE (NEGATIVE); TURBIDITY URINE CLEAR (CLEAR)
[2018-09-11 19:51] LABS: LEUKOCYTES URINE NEGATIVE (NEGATIVE); NITRITE URINE NEGATIVE (NEGATIVE); UR EPITHELIAL CELLS <10 /HPF (<10); URINE BACTERIA NEGATIVE /HPF; URINE RBC <10 /HPF (<10); URINE WBC <10 /HPF (<10); UROBILINOGEN URINE NORMAL (NORMAL)
[2018-09-11 19:59] LABS: UR AMPHETAMINES QUAL NONE DETECTED (NONE DETECT); UR BARBITUATES QUAL NONE DETECTED (NONE DETECT); UR BENZODIAZEPIN QUAL NONE DETECTED (NONE DETECT); UR CANNABINOIDS QUAL NONE DETECTED (NONE DETECT); UR COCAINE QUAL NONE DETECTED (NONE DETECT); UR METHADONE QUAL NONE DETECTED (NONE DETECT); UR OPIATES QUAL NONE DETECTED (NONE DETECT); UR OXYCODONE QUAL NONE DETECTED (NONE DETECT); UR PCP QUAL NONE DETECTED (NONE DETECT)
[2018-09-11 20:00] LABS: UR CREAT RANDOM 9.9 mg/dL (11-20)
--- NOTE | 2018-09-11 20:06 | HISTORY AND PHYSICAL ---
PRIMARY CARE PHYSICIAN: Dr. Loyd Knox. CHIEF COMPLAINT: Confusion. HISTORY OF PRESENT ILLNESS: Mrs. Vargas is a 77-year-old female who was discharged from our service earlier this month for colitis. 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 Puente in [place]. She comes in today for reported confusion, this was reported to the ER by the son and [id number], however there is no family at the bedside currently and as of right now Mrs. Vargas is alert and oriented and follows commands without focal deficits. She states that there was perhaps some confusion last night but nothing acutely now. She denies any pain. No abdominal pain, nausea, vomiting, diarrhea, constipation, dysuria, hematuria, melena, or hematochezia. When she got to the ER she was noted to have some hyponatremia with a sodium of 125, mild renal insufficiency. Creatinine 1.2. No white count. Chest x-ray is negative. We have been asked to admit her for symptomatic hyponatremia, however as stated earlier, she currently is without confusion or mental status changes. PAST MEDICAL HISTORY: 1. Bilateral lung small cell carcinoma, followed by Dr. Puente in [place], on chemo. 2. COPD, on nocturnal oxygen. 3. GERD. 4. Recent diagnosis of colitis. C difficile studies were negative. 5. Hypertension. PAST SURGICAL HISTORY: Port placement and hysterectomy. SOCIAL HISTORY: No current tobacco, alcohol or drug use. REVIEW OF SYSTEMS: A 14-point review of systems was obtained and found to be negative with the exception of the HPI. ALLERGIES: Levaquin, penicillin, Avelox, Bacitracin, aspirin, clindamycin, and Neosporin. MEDICATIONS: Not yet compiled, but will be important to get these as soon as possible because she was apparently discharged earlier this month on 60 mg of prednisone a day. PHYSICAL EXAMINATION: VITAL SIGNS: Blood pressure is 122/59, heart rate 78, respiratory rate 20, 02 saturation 95% on room air, temperature 97.7. GENERAL: This is an elderly female lying in the hospital bed in no acute distress. NEUROLOGIC: The patient is awake and alert. She is oriented. She did mistaken the year for 1919 versus 2019 but she follows commands without focal deficits. HEENT: Head is atraumatic, normocephalic. Pupils equal, round, and reactive to light. Oral mucosa is dry. Trachea is midline. There is no JVD. CHEST: Some scattered rhonchi bilaterally. CV: Regular rate and rhythm. S1 and S2 noted. GI: Soft, nondistended, nontender. Bowel sounds are active. EXTREMITIES: 1+ edema. Ecchymosis noted to the left lateral foot. Full range of motion of both ankles intact. DIAGNOSTIC DATA: Head CT: Chronic changes, nothing acute. Chest x-ray: Stable chest, no infiltrates; left-sided Port-A-Cath stable. WBC 8.47, hemoglobin 11.6, hematocrit 34.6, platelet count 229. INR 0.87. Sodium 125, potassium 3.4, chloride 85. CO2 is 28, anion gap 12, BUN 16, creatinine 1.2, glucose 113. Calcium 9. AST 17, ALT 18, alkaline phosphatase 106. Protein 5.9. Albumin 3.9. ASSESSMENT/PLAN: 1. Reported metabolic encephalopathy: Currently the patient is oriented. She knows where she is. She follows commands. She has no focal deficits. Unclear if or when she became confused, however this has seemingly resolved. She is hyponatremic, which is likely secondary to volume depletion as she does have an elevated creatinine and she reports urinating a lot from the Lasix she takes, which she takes for apparent lower extremity edema. We will check urine studies, however they will be skewed as she is on Lasix. However, on physical exam she is volume depleted, intravascularly. We will gently hydrate. Check another sodium later tonight and tomorrow morning. If she has no worsening neurologic deficits and her sodium improves, she likely will be able to go home. We will check a lipid profile and magnesium. 2. Hypokalemia: Likely again diuretic induced. Magnesium is pending. Will replace with oral potassium. Replace magnesium if necessary and check again in the morning. 3. Small cell lung cancer, bilaterally: Followed by Dr. Puente in [place]. At this time there is no need to consult Hematology/Oncology. She will likely be able to go home soon but if anything changes we will certainly give them a call. 4. Chronic obstructive pulmonary disease, on nocturnal oxygen: Currently not in exacerbation. Chest x-ray is negative. Her oxygen saturations are adequate. She denies any worsening shortness of breath or sputum production. Will continue her home medications once compiled and then go from there. Will continue pulmonary toilet, p.r.n. nebulizers and oxygen at night. 5. Hypertension: Will continue home medications once compiled. 6. Chronic steroid use: The patient was discharged 24 days ago on 60 mg of prednisone daily. Unclear exactly how much she takes now or if she takes that much. She is not acutely ill, so we do not need to increase the dosage, if she is on chronic steroids, but we definitely need to restart those if she is indeed on steroids. 7. Deep venous thrombosis prophylaxis with sequential compression devices. Further recommendations to follow. Dictated by JESSICA Ledbetter for Josesito Thomas MD cc: JESSICA Ledbetter MD I agree with most components of history, physical, assessment and plan. A separate addendum has been dictated. MTDWard
[2018-09-11 20:25] LABS: POTASSIUM 3.4 mmol/L (3.5-5.1)
[2018-09-11] MEDS ORDERED: LOMOTIL PO PRN (21:08)
[2018-09-11] MEDS ORDERED: NORCO-10 PO PRN (21:08)
[2018-09-11] MEDS ORDERED: LEVSIN PO PRN (21:08)
--- NOTE | 2018-09-11 21:37 | HISTORY AND PHYSICAL ---
ADDENDUM: I agree with most components of the history, physical, assessment, and plan. In brief, Ms. 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 However, the patient states she has been feeling better and she is denying any new complaints. At the time of my evaluation, she is denying any chest pain or shortness of breath. She states she is coughing, but it is usual for her. She has not noticed any increase in her cough. She denies any urinary burning or increased frequency. She has been taking Lasix for the last 2 days for her lower extremity edema, and we discussed that it might have affected her kidney function. PHYSICAL EXAMINATION: VITAL SIGNS: Currently, she is afebrile with temperature of 97.7 degrees, pulse of 79, respiratory rate 18, oxygen saturation 94% on room air. GENERAL: She does not appear in any acute distress. She is fidgety. HEENT: She does have dry mouth and dry oral cavity. Pupils equal, reacting to light. LUNGS: Air entry bilaterally equal. No wheeze or crackles. CARDIOVASCULAR: S1, S2, normal. No murmur or gallop. ABDOMEN: Soft, nontender. CHEST: She does have left-sided chest port. EXTREMITIES: She has mild bilateral ankle edema. LABS: Suggestive of hyponatremia, hypochloremia, acute kidney injury, hypokalemia, and hypomagnesemia. She does not have leukocytosis. MICROBIOLOGY: Blood cultures are in Lab. IMAGING: Head CT for acute encephalopathy detected chronic microvascular ischemic changes without any acute disease. Chest x-ray had a stable chest. ASSESSMENT: 1. Acute encephalopathy, likely because of metabolic derangement. 2. Hyponatremia, hypochloremia, hypokalemia, hypomagnesemia, and acute kidney injury, likely related to volume depletion related to her use of Lasix. 3. History of bilateral small cell lung cancer. 4. History of nivolumab induced acute colitis, on prednisone, currently taking 40 mg as per the history provided to me. PLAN: 1. I will start patient on intravenous fluids. 2. I will resume most of her home medications, including prednisone. 3. Will follow up with CBC and BMP tomorrow. 4. Will also follow up with urine electrolytes. 5. Will admit her on medical floor for observation. Plan of care discussed with her. All of her questions have been answered. cc: Josesito Thomas MD MTDD
[2018-09-11] MEDS: MAGNESIUM SULFATE 2 GM/S.W.I. 2 GM/50 ML IVPB IV SCH (21:48)
[2018-09-12 00:10] LABS: CALCIUM 8.4 mg/dL (8.8-10.2); CREATININE 1.1 mg/dL (0.5-0.9); POTASSIUM 4.3 mmol/L (3.5-5.1)
[2018-09-12] MEDS: MAGNESIUM SULFATE 2 GM/S.W.I. 2 GM/50 ML IVPB IV SCH (01:20)
[2018-09-12 06:34] LABS: HEMATOCRIT 31.7 % (37.0-47.0); HEMOGLOBIN 10.6 g/dL (12.0-16.0); MCH 30.5 PG (27-31); MCHC 33.4 g/dL (33-37); MCV 91.4 FL (81-99); MPV 9.9 FL (7.4-10.4); RBC 3.47 XMIL (4.2-5.4); RDW 15.5 % (11.5-14.5); WBC 7.53 X1000 (4.8-10.8)
[2018-09-12 06:52] LABS: CALCIUM 7.4 mg/dL (8.8-10.2); POTASSIUM 4.1 mmol/L (3.5-5.1)
[2018-09-12] MEDS: SPIRIVA INH SCH (07:30)
[2018-09-12] MEDS: BREO ELLIPTA 100/25 MCG INH INH SCH ×2 (07:30→21:05)
[2018-09-12] MEDS ORDERED: XANAX PO SCH (09:00)
[2018-09-12] MEDS ORDERED: PREDNISONE PO SCH (09:00)
[2018-09-12] MEDS: DUONEB (A & A) INH SCH ×3 (09:00→21:05)
[2018-09-12] MEDS: CARDIZEM CD PO SCH (09:01)
[2018-09-12] MEDS: ASPIRIN PO SCH (09:01)
[2018-09-12] MEDS: TUMS PO SCH ×3 (09:01→20:29)
[2018-09-12] MEDS: MUCINEX PO SCH ×2 (09:01→20:28)
[2018-09-12] MEDS: PREDNISONE PO SCH ×2 (16:51→17:17)
[2018-09-12] MEDS: XANAX PO SCH ×2 (16:51→17:17)
[2018-09-12] MEDS ORDERED: NS 1,000 ML IV SCH (17:15)
[2018-09-12] MEDS ORDERED: NS 1,000 ML ONE (17:16)
--- NOTE | 2018-09-12 19:46 | PROGRESS NOTE ---
DATE: 09/12/2018 INTERVAL HISTORY: The patient's sodium was improving after intravenous fluids. In the morning time she was alert, but she then started becoming confused on my evaluation. I talked with the patient's daughter, and apparently the patient had sudden onset of confusion which started yesterday morning. SUBJECTIVE: The patient is alert at the time of my evaluation. She is playing with her meal plate and tray, and she is not able to tell me what she is doing, but her movements and her activities do not look purposeful; however, on repeated verbal stimuli, I am able to direct her. She is denying any chest pain or shortness of breath. She is coughing during examination. She denies nausea, vomiting, abdominal pain. OBJECTIVE: Vital signs: Temperature 98.7 degrees, pulse 64, respiratory rate 22, blood pressure 153/55, saturating 94% on room air. In general does not appear in any acute distress. Oral cavity is moist. Air entry bilaterally equal. No wheeze or rhonchi. Mild bilateral crackles. S1, S2 normal. No murmur, rub or gallop. Abdomen is soft, nontender. She has a left-sided chest port. She has bilateral ankle edema. LABORATORY DATA: Labs today suggestive of normocytic anemia, normal platelet count, improving hyponatremia and hypochloremia. She also had improving acute kidney injury, with creatinine of 1 at the moment; hypocalcemia, and she is on oral calcium gluconate. DIAGNOSTIC DATA: No new imaging. Head CT yesterday did have periventricular white matter lucency in the frontal lobes without any acute changes. ASSESSMENT AND PLAN: 1. Acute encephalopathy. She has had waxing and waning course during this hospital admission. She appears a little more confused today than she was yesterday. Certainly it could be metabolic derangement. I will continue intravenous normal saline. We will follow up with sodium level tomorrow. I will also order MRI brain to rule out any brain metastasis, considering her small-cell lung cancer. I am stopping her alprazolam that she has been taking for anxiety, as this might contribute to her altered mental status as well. I will adjust other medications as required. 2. History of chronic obstructive pulmonary disease, on nocturnal oxygen. Continue albuterol/ipratropium nebulization, fluticasone/vilanterol nebulization, guaifenesin and tiotropium. She currently does not appear to be in any acute distress. 3. History of paroxysmal supraventricular tachycardia. Continue her on p.o. diltiazem. Currently blood pressure and pulse is in acceptable range. 4. History of bilateral small-cell lung cancer, on chemoradiation. She is on immune checkpoint inhibitor as an outpatient. She missed her dose on 09/11/2018. I will continue her on prednisone with a weekly taper, which was started for her immune checkpoint in inhibitor- induced acute colitis in early 08/2018. I will continue to monitor kidney function. We will continue her Tums for hypocalcemia. 5. Disposition: The patient remains inside the hospital for acute encephalopathy. I will also follow up with sputum culture to see if she has any pneumonia, but her cough appears to be baseline. Plan of care discussed with the patient. I also called the patient's daughter and son-in-law, and informed them about her course and answered all of their questions. cc: Josesito Thomas MD
[2018-09-12] MEDS: CRESTOR PO SCH (20:29)
[2018-09-13] MEDS: DUONEB (A & A) INH SCH ×4 (03:15→21:10)
[2018-09-13 07:12] LABS: HEMATOCRIT 34.5 % (37.0-47.0); HEMOGLOBIN 11.1 g/dL (12.0-16.0); MCHC 32.2 g/dL (33-37); MCV 96.4 FL (81-99); RBC 3.58 XMIL (4.2-5.4); RDW 16.5 % (11.5-14.5); WBC 7.73 X1000 (4.8-10.8)
[2018-09-13 07:43] LABS: POTASSIUM 3.6 mmol/L (3.5-5.1); SODIUM 135 mmol/L (136-145)
[2018-09-13 07:44] LABS: AGAP 15; BUN 11 mg/dL (8-22); CALCIUM 7.8 mg/dL (8.8-10.2); CHLORIDE 96 mmol/L (98-107); COSMO 270; CREATININE 0.9 mg/dL (0.5-0.9); ESTIMATED GFR > 60; GLUCOSE 101 mg/dL (70-104); TCO2 24 mmol/L (25-35)
[2018-09-13] MEDS: SPIRIVA INH SCH (08:18)
[2018-09-13] MEDS: BREO ELLIPTA 100/25 MCG INH INH SCH ×2 (08:18→19:10)
[2018-09-13] MEDS: ASPIRIN PO SCH (09:52)
[2018-09-13] MEDS: TUMS PO SCH ×3 (09:53→21:27)
[2018-09-13] MEDS: CARDIZEM CD PO SCH (09:54)
[2018-09-13] MEDS: MUCINEX PO SCH ×2 (09:54→21:27)
[2018-09-13] MEDS ORDERED: VANCOMYCIN IV PER PHARMACY MISC SCH (14:30)
[2018-09-13] MEDS: MERREM 2 GM in NS 50 ML IV SCH ×2 (14:53→21:28)
[2018-09-13] MEDS: NS 1,000 ML IV SCH (14:54)
[2018-09-13] MEDS ORDERED: VANCOMYCIN 1,300 MG in NS 250 ML IV ONE (15:00)
[2018-09-13] MEDS: PREDNISONE PO SCH (15:53)
--- NOTE | 2018-09-13 17:43 | Diag Imaging Result Doc PS360 ---
CT HEAD W/O CONTRAST - 09/13/2018 INDICATION: encephalopathy. COMPARISON: 09/11/2018 FINDINGS: The ventricles and sulci are normal in size and contour. No intracranial mass or hemorrhage. Stable mild to moderate periventricular white matter chronic microvascular disease. The skull is intact. The sinuses are clear. IMPRESSION: No acute process. No change from prior. This exam was performed using automated exposure control, adjustment of mA or kV according to patient size, and/or use of iterative reconstruction technique Electronically signed by Franky Brown 09/13/2018 5:41 PM
--- NOTE | 2018-09-13 18:03 | PROGRESS NOTE ---
DATE: 09/13/2018 INTERVAL HISTORY: No acute event overnight. In the morning time, I was told by the nursing team that patient appears a little more confused. The patient's son was at bedside and he was also worried about patient's current clinical condition. SUBJECTIVE: Patient is fidgety. She is alert, but she does not appear attentive to the conversation. She remains fidgety and keeps playing with the bed sheet. OBJECTIVE: General: She does not appear in any acute distress. ENT: Her oral cavity is moist. Lungs: Air entry bilaterally equal. No wheezing, rhonchi, crackles. Cardiovascular: S1, S2 normal. No murmur or gallop. Abdomen: Soft, nontender. Extremities: No lower extremity edema, except mild ankle edema. Neurologic: She appears tremulous. There is no neck rigidity. Kernig's and Brudzinski's signs are negative. There is no meningismus. She is alert, but not oriented and she is not answering any questions today. VITAL SIGNS: Temperature 98.3, pulse 79, respiratory rate 18, blood pressure 160/53, saturating 92-93% on room air. LAB EVALUATION: She does not have any leukocytosis, normocytic anemia, normal platelet count, improving hyponatremia and hypochloremia. Normal kidney function. Microbiology: Blood culture no growth to date. Labs, no abnormality. ASSESSMENT AND PLAN: 1. Acute encephalopathy. The patient had initially improved after intravenous fluids and correction of hyponatremia. However, again, her encephalopathy has started worsening. I am ordering a repeat CT scan of the head to rule out any acute pathology, which was not evident on previous CT scan. I am awaiting MRI brain to rule out any CVA or metastatic small cell lung cancer. Now, I am also suspecting acute meningitis. I am starting her on intravenous vancomycin and intravenous meropenem empirically and will likely get a lumbar puncture on Saturday. She did have prior history of multidrug resistant Acinetobacter pneumonia, so I will keep her on vancomycin. Follow up with urine antigens as well. 2. Her hyponatremia, hypochloremia and acute kidney injury on presentation because of home Lasix use for bilateral lower extremity edema seems to have improved. I will continue her intravenous normal saline. Others: 1. Continue albuterol ipratropium nebulization, fluticasone with enteral nebulization, guaifenesin, and tiotropium for history of chronic obstructive pulmonary disease. 2. Diltiazem for history of paroxysmal supraventricular tachycardia. 3. 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 4. Tums for hypocalcemia. 5. She does have history of bilateral small cell lung cancer and had received radiation many months ago. She is currently on chemotherapy. DISPOSITION: Patient's condition remains critical. I had updated the patient's family, the patient's son and [id number] yesterday about her clinical course. I will keep them informed today as well. Plan of care discussed with them. I will address their questions. Plan of care discussed with the nursing team. cc: Josesito Thomas MD
[2018-09-13 19:21] LABS: BODY FLUID SOURCE CSF
[2018-09-13 19:22] LABS: APPEARANCE CLEAR
[2018-09-13] MEDS ORDERED: LIDODERM TOP ONE (19:37)
[2018-09-13 19:40] LABS: GLUCOSE CSF 69 mg/dL (39-75); PROTEIN CSF 38.3 mg/dL (15-45)
[2018-09-13 19:44] LABS: RBC BF 1 /cumm; WBC BF 3 /cumm
[2018-09-13] MEDS: CRESTOR PO SCH (21:27)
--- NOTE | 2018-09-13 22:33 | OPERATIVE NOTE ---
PROCEDURE DATE: 09/13/2018 PROCEDURE: Lumbar puncture. INDICATION: Suspected acute meningitis and persistent altered mental status. [employer]PERVISOR: Josesito Thomas MD ASSISTANTS: The nursing team, to hold the patient in position. CONSENT: The indication for the procedure and the risks associated with it were explained to the patient; however, considering she has had fluctuating alertness, I had also called the patient's son who is the surrogate decision-maker and informed him about the indication of the procedure. I told him that considering her persistent alteration in mental status, acute meningitis is a likely possibility, and so I would like to perform lumbar puncture. I had explained to him about the procedure, the risks associated with it including bleeding, infection, headache or injury to the spine and spinal cord. I had answered all of his questions. The consent was conformed by the patient's nurse on the day as well. PROCEDURE: First of all, the patient was placed in the right lateral position and her knees were flexed toward the chest. The nurse held the patient in that position. the proper landmark was marked on the back on the spine, with iliac crest surface marking between 4th and 5th lumbar vertebra. Sterile gloves were worn,and the area was cleaned with Betadine solution thrice. After that, the area was draped. The area was locally infiltrated with 1% lidocaine, which the patient tolerated well. After that, a lumbar puncture needle was introduced. Initially, resistance was noticed and the needle was hitting the bone. Later on I was able to pass the needle, and the needle entered the CSF space. The needle was withdrawn, and clear CSF flow was returning. Four bottles of CSF tubes were filled. After that, the cannula was withdrawn. After withdrawing the cannula, pressure was applied at the site for about 5 minutes and then a Band-Aid was applied. The patient tolerated the procedure well. There was no bleeding at the site of needle puncture. The patient was advised to remain flat for 2-4 hours. She did not complain of any tingling or numbness of bilateral lower extremities. ESTIMATED BLOOD LOSS: Less than 1 mL Time spent: About 20 minutes. cc: Josesito Thomas MD [facility]
[2018-09-14] MEDS: DUONEB (A & A) INH SCH ×4 (02:45→21:05)
[2018-09-14] MEDS: MERREM 2 GM in NS 50 ML IV SCH ×3 (06:21→20:27)
[2018-09-14] MEDS: SPIRIVA INH SCH (08:17)
[2018-09-14] MEDS: BREO ELLIPTA 100/25 MCG INH INH SCH ×2 (08:17→21:05)
[2018-09-14] MEDS: TUMS PO SCH ×3 (09:09→20:28)
[2018-09-14] MEDS: MUCINEX PO SCH ×2 (09:09→20:28)
[2018-09-14] MEDS: CARDIZEM CD PO SCH (09:09)
[2018-09-14] MEDS: ASPIRIN PO SCH (09:09)
--- NOTE | 2018-09-14 09:27 | PROGRESS NOTE ---
DATE: 09/14/2018 INTERVAL HISTORY: No acute event overnight. I performed the lumbar puncture yesterday, which patient tolerated well. She stated she was put on 2 L oxygen overnight because she was feeling cold and was not able to breathe well. She is able to remember the lumbar puncture procedure. She is able to tell me that she came into the hospital because her sodium level was 129. SUBJECTIVE: She is still appearing fidgety, but alert. Denies any chest pain or shortness of breath. OBJECTIVE: Vitals: Temperature 98.2 degrees, pulse 89, respiratory rate 17, blood pressure 153/59. She is saturating 97% on room air. General: She does not appear in any acute distress. HEENT: Oral cavity is moist. Lungs: Air entry bilaterally equal, no wheeze, rhonchi, crackles. Cardiac: S1, S2 normal. No murmur, rub or gallop. Appears regular. Abdomen: Soft, nontender. Extremities: No lower extremity edema except mild ankle edema. She appears tremulous. No neck rigidity. There is no meningismus. She is alert, she is oriented, but she appears anxious. LABORATORIES: No new CBC or BMP today. No new microbiological data. Lumbar puncture results: The CSF was clear. Glucose was within normal limit. Total protein was also within normal limits. Cells were unremarkable. ASSESSMENT AND PLAN: 1. Acute encephalopathy, which persists even after correction of hyponatremia. Lumbar puncture and CSF analysis does not suggest meningitis. I will follow up with magnetic resonance imaging of brain tomorrow to rule out any metastatic small cell lung cancer versus cerebrovascular accident versus checkpoint inhibitor induced encephalitis. When the final CSF culture is back, my plan is to discontinue vancomycin and meropenem. Follow up B12 and RPR. 2. Hyponatremia, hypochloremia and acute kidney injury on presentation because of Lasix use, now resolved. I will continue her intravenous normal saline and will stop it according to her response. 3. 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 She missed her last chemotherapy due to hospital admission. 4. Disposition. Patient's condition is hemodynamically stable; however, encephalopathy persists. I plan to continue to keep the patient inside the hospital as we await MRI tomorrow. Plan of care discussed with the patient. I called patient's son yesterday and informed him about plan of care. All of his questions have been answered. cc: Josesito Thomas MD MTDD
[2018-09-14] MEDS ORDERED: XANAX PO PRN (09:46)
[2018-09-14] MEDS ORDERED: CARDIZEM IV ONE (10:06)
[2018-09-14] MEDS: NS 1,000 ML IV SCH (14:03)
[2018-09-14] MEDS: PREDNISONE PO SCH (15:47)
[2018-09-14] MEDS ORDERED: VANCOMYCIN 1 GM/NS 1 GM/250 ML IVPB IV SCH (16:00)
--- NOTE | 2018-09-14 19:49 | PROGRESS NOTE ---
DATE: 09/14/2018 ADDENDUM: Ms Vargas suddenly started developing paroxysms of tachycardia. I looked at the telemetry and also looked at the EKG, EKG had atrial flutter with variable AV block. Telemetry had what appears to be irregular supraventricular tachycardia with heart rate as high as 190. I directed nurse to give her p.o. diltiazem and also give her 1 time 10 mg of IV diltiazem following which her heart rate had decreased to 110 per minute. Apparently I was told that patient did not receive her diltiazem yesterday as she was altered. Plan of care discussed with the nursing team. cc: Josesito Thomas MD
[2018-09-14] MEDS: CRESTOR PO SCH (20:28)
[2018-09-15] MEDS: MERREM 2 GM in NS 50 ML IV SCH ×4 (01:30→14:33)
[2018-09-15] MEDS: DUONEB (A & A) INH SCH ×4 (03:15→21:18)
[2018-09-15] MEDS: TYLENOL PO PRN (03:38)
[2018-09-15 06:45] LABS: BASO# 0.01 X1000 (0.0-0.2); BASO% 0.1 % (0.0-0.8); HEMATOCRIT 32.7 % (37.0-47.0); HEMOGLOBIN 10.8 g/dL (12.0-16.0); IMM GRAN# 0.04 X1000 (0.0-0.04); IMM GRAN% 0.4 % (0.0-0.5); LYMPH# 0.28 X1000 (1.2-3.4); LYMPH% 3.1 % (20.5-51.1); MCH 30.8 PG (27-31); MCV 93.2 FL (81-99); MONO% 6.7 % (1.7-9.3); MPV 9.9 FL (7.4-10.4); NEUT# 8.04 X1000 (1.4-6.5); NEUT% 89.7 % (42.2-75.2); PLT 205 X1000 (130-400); RBC 3.51 XMIL (4.2-5.4); WBC 8.97 X1000 (4.8-10.8)
--- NOTE | 2018-09-15 07:03 | EKG Report ---
Test Performed on : 09/14/2018 10:14:21 AM Test Reason : increased irregular heart rate Blood Pressure : / mmHG Vent. Rate : 146 BPM Atrial Rate : 312 BPM P-R Int : 000 ms QRS Dur : 076 ms QT Int : 276 ms P-R-T Axes : 266 044 170 degrees QTc Int : 430 ms Atrial flutter. with variable AV block. Nonspecific ST and T wave abnormality Abnormal ECG When compared with ECG of 11-SEP-2018 14:08, (Unconfirmed) Atrial flutter. has replaced Sinus rhythm. Vent. rate has increased BY [address] now depressed in Inferior leads ST now depressed in Anterolateral leads Nonspecific T wave abnormality now evident in Inferior leads Nonspecific T wave abnormality, worse in Lateral leads Confirmed by Tanika BENSON, Tico Atkins ([id number]) on 09/17/2018 9:39:54 AM
[2018-09-15 07:16] LABS: AGAP 9; BUN 12 mg/dL (8-22); CALCIUM 8.1 mg/dL (8.8-10.2); CHLORIDE 98 mmol/L (98-107); COSMO 269; CREATININE 0.9 mg/dL (0.5-0.9); ESTIMATED GFR > 60; GLUCOSE 153 mg/dL (70-104); MAGNESIUM 1.7 mg/dL (1.5-2.7); POTASSIUM 3.7 mmol/L (3.5-5.1); SODIUM 133 mmol/L (136-145); TCO2 26 mmol/L (25-35)
[2018-09-15] MEDS: BREO ELLIPTA 100/25 MCG INH INH SCH ×2 (07:59→21:18)
[2018-09-15] MEDS: SPIRIVA INH SCH (08:00)
[2018-09-15] MEDS: ASPIRIN PO SCH (11:31)
[2018-09-15] MEDS: CYANOCOBALAMIN IM SCH (11:31)
[2018-09-15] MEDS: CARDIZEM CD PO SCH (11:31)
[2018-09-15] MEDS: TUMS PO SCH ×3 (11:31→20:47)
[2018-09-15] MEDS: VITAMIN B-12 PO SCH ×3 (11:31→15:45)
[2018-09-15] MEDS: MUCINEX PO SCH ×2 (11:32→20:47)
--- NOTE | 2018-09-15 12:30 | PROGRESS NOTE ---
DATE: 09/15/2018 INTERVAL HISTORY: Her CSF culture did not have any growth. Her RPR was negative and vitamin B12 was low for which she has been started on intramuscular and p.o. vitamin B12. Her vancomycin has been stopped. Sputum is growing gram-negative rods. SUBJECTIVE: She is tremulous, slightly confused. The patient's son is at bedside. The patient denies any new complaints. Son thinks she is better today. VITAL SIGNS: Currently, vitals suggest temperature 98.2 degrees, pulse 91, respiratory rate 18, blood pressure 168/64, saturating 97% on room air. PHYSICAL EXAMINATION: She does not appear in acute distress, though she is mildly tremulous and slightly confused. Though, on repeated verbal stimuli, she answers questions appropriately. Oral cavity is moist. She did not have her breakfast. Air entry is bilaterally equal. No wheeze, rhonchi, crackles. S1, S2 normal. No murmur or gallop. Abdomen: Soft, nontender. Her heart rhythm is irregularly irregular. No lower extremity edema except mild ankle edema. She is alert and on repeated verbal stimuli, answers questions appropriately. However, she needs to be redirected. LABS: Suggestive of no leukocytosis, normocytic anemia, normal platelet count. She does have mild hyponatremia with sodium of 133, otherwise normal electrolytes. MICROBIOLOGY: No positive data except sputum culture is growing gram-negative callie. ASSESSMENT AND PLAN: 1. Acute encephalopathy which is persistent after correction of hyponatremia. Lumbar puncture and cerebrospinal fluid analysis did not detect acute meningitis. Follow up MRI of brain to rule out metastatic small cell lung cancer versus cerebrovascular accident. The suspicion of checkpoint inhibitor induced intracranial process, though less, is still present. I will start her on vitamin B12 replacement. 2. Montez-negative pneumonia. I will continue the patient on intravenous meropenem considering prior history of Acinetobacter, until final sputum culture results come back. 3. Hyponatremia, hypochloremia, and acute kidney on presentation because of Lasix use, now resolved. I will stop intravenous fluids. 4. Others. Continue albuterol-ipratropium nebulization with fluticasone, vilanterol, and tiotropium, and guaifenesin for a history of chronic obstructive pulmonary disease. 5. Episode of paroxysmal supraventricular tachycardia with electrocardiogram showing atrial flutter with variable atrioventricular block. Continue oral diltiazem. Currently, her heart rate is in acceptable range. Previously, I have had a discussion with the patient and her family about anticoagulation. Considering her health status, it was decided not to keep her on anticoagulation. I will continue aspirin. 6. Others. Continue Tums for hypocalcemia; she missed her last chemotherapy due to hospital admission for her small cell lung cancer. 7. Disposition. The patient, though is hemodynamically stable, still is encephalopathic. I will follow up with MRI of brain. Plan of care discussed with the patient's son at bedside. All of his questions have been answered. cc: Josesito Thomas MD
--- NOTE | 2018-09-15 13:01 | Diag Imaging Result Doc PS360 ---
EXAM: MRI BRAIN W/WO CONTRAST 09/12/2018 HISTORY: Look for brain metastasis from small cell lung Ca TECHNIQUE: T1 sagittal, axial and post gadolinium-enhanced axial with coronal reformation, T2, FLAIR, DWI axial and coronal gradient echo. COMMENT: The current examination is compared with the previous study of 09/11/2017. There are prominent perivascular spaces. There are patchy areas of increased T2-weighted signal intensity in the periventricular white matter of both hemispheres. This has not changed significantly since the previous study. There is no evidence of bleed or mass effect. There is no evidence of restricted diffusion. There is a focus of increased gadolinium enhancement in the diploic space of the left parietal bone which has not changed significantly since the previous study and may represent a hemangioma. Otherwise, there is no evidence of abnormal gadolinium enhancement. IMPRESSION: No evidence of metastatic disease. Electronically signed by Matt Velazco 09/15/2018 12:59 PM
[2018-09-15] MEDS ORDERED: CARDIZEM IV ONE (14:15)
[2018-09-15] MEDS: CARDIZEM PO SCH ×2 (14:35→20:47)
[2018-09-15] MEDS: PREDNISONE PO SCH (15:17)
--- NOTE | 2018-09-15 15:46 | PROGRESS NOTE ---
DATE: 09/15/2018 ADDENDUM: I was notified by the nursing team that the patient keeps on having multiple rounds of tachycardia where her heart rate would shoot up to 160s and it to come down to 100-teens. I have ordered intravenous diltiazem. I evaluated the patient at bedside. On bedside monitor, heart rate is 109 and fluctuates between 90 to 110. She does have intermittent normal sinus rhythm as well as supraventricular tachycardia. The patient denies any chest pain or shortness of breath. My plan is to give her short-acting diltiazem in addition to long-acting diltiazem and increase the long-acting diltiazem dose tomorrow onwards and I will transfer patient to [facility]. The patient did have an echocardiogram on previous admission about a month ago and she had an ejection fraction of 65% without any significant mitral valvular pathology. cc: Josesito Thomas MD
[2018-09-15] MEDS: ELIQUIS PO SCH (16:53)
[2018-09-15] MEDS: CRESTOR PO SCH (20:47)
[2018-09-16] MEDS: CARDIZEM PO SCH (01:43)
[2018-09-16] MEDS ORDERED: MERREM 2 GM in NS 50 ML IV SCH (02:30)
[2018-09-16] MEDS: DUONEB (A & A) INH SCH ×4 (03:14→21:46)
[2018-09-16] MEDS: BREO ELLIPTA 100/25 MCG INH INH SCH ×2 (08:17→19:30)
[2018-09-16] MEDS: SPIRIVA INH SCH (08:17)
[2018-09-16] MEDS: TUMS PO SCH ×3 (09:05→20:41)
[2018-09-16] MEDS: ASPIRIN PO SCH (09:05)
[2018-09-16] MEDS: VITAMIN B-12 PO SCH (09:06)
[2018-09-16] MEDS: ELIQUIS PO SCH ×2 (09:06→20:42)
[2018-09-16] MEDS: CYANOCOBALAMIN IM SCH (09:06)
[2018-09-16] MEDS: MUCINEX PO SCH ×2 (09:06→20:41)
[2018-09-16] MEDS: CARDIZEM CD PO SCH (09:06)
[2018-09-16] MEDS: TYLENOL PO PRN (09:10)
--- NOTE | 2018-09-16 11:24 | PROGRESS NOTE ---
DATE: 09/16/2018 INTERVAL HISTORY: The patient was transferred to [facility] with additional doses of diltiazem. Her heart rate was normal sinus rhythm and it was well controlled. No other overnight events. The patient refuses to eat her breakfast today. Her MRI brain did not have any acute pathology. SUBJECTIVE: She denies any chest pain or shortness of breath. She is sleepy and she wants me to keep the lights turned off. She is slow to respond today. She answers some questions but then keeps her eyes closed. OBJECTIVE: VITAL SIGNS: Temperature 98.2 degrees, pulse 88, respiratory rate 16, blood pressure 160/68, saturating 96% on room air. PHYSICAL EXAMINATION: General: Not in any acute distress. She is generally tremulous in her upper extremities and head, especially when she tries to move. HEENT: Her oral cavity is moist. Lungs: Air entry bilaterally equal. No wheeze, rhonchi, crackles. Cardiovascular: S1, S2 normal. No murmur, rub or gallop. Normal sinus rhythm. Abdomen: Soft, nontender. Extremities: No lower extremity edema except mild ankle. Neurologic: She is drowsy but arousable. Occasionally answers questions appropriately but then keeps her eyes closed. She is able to lift both upper extremity and lower extremity above ground level, but keeps moaning while doing that. LABORATORY DATA: No CBC or BMP today. MICROBIOLOGY: Sputum culture is growing Stenotrophomonas maltophilia sensitive to Bactrim and levofloxacin. IMAGING: Brain MRI had suggested no evidence of metastatic disease. ASSESSMENT AND PLAN: 1. Acute encephalopathy which is persistent after correction of hyponatremia. CSF analysis has been unremarkable. MRI of the brain did not detect any metastatic small cell lung cancer or acute CVA. I will continue to replete her vitamin B12. She had her last immunotherapy on 08/22/2018 so checkpoint inhibitor-induced intracranial process is possible. I will consult Neurology for further recommendation. I will continue her prednisone that she has been taking for checkpoint inhibitor-induced colitis which she presented with on previous admission. 2. Stenotrophomonas pneumonia. Though the chest x-ray did not have significant infiltrate, the sputum is positive. Change antibiotics to Bactrim. My suspicion for pneumonia contributing to altered mental status is very low at the moment. 3. Paroxysmal supraventricular tachycardia with intermittent atrial fibrillation, atrial flutter with a heart rate as high as 190. Continue higher dose of oral diltiazem and Eliquis. I discussed the advantage versus risk of blood thinners with the patient's family and they are in agreement. 4. Others. Hyponatremia, hypochloremia, and acute kidney injury on presentation are resolved; continue albuterol ipratropium nebulization with fluticasone vilanterol and tiotropium with guaifenesin for history of COPD; Tums for hypocalcemia. Prednisone for immune colitis. 5. Disposition. I will continue to monitor in [facility]. Will appreciate Neurology recommendation. Plan of care discussed with the patient's family, son and [id number]. All of their questions have been satisfactorily answered. cc: Josesito Thomas MD MTDD
[2018-09-16] MEDS: SEPTRA DS PO SCH ×2 (11:37→20:42)
--- NOTE | 2018-09-16 14:14 | CONSULTATION ---
DATE OF CONSULTATION: 09/16/2018 HISTORY: Ms. Vargas is 77 years old, and there is reported fluctuating mental status. Ms. Vargas reports sometimes feeling dizzy, sometimes feeling like she can't pay attention, but she does not report periods of altered awareness, unconsciousness, memory gap. She reports some forgetfulness, but believes that has not been a major problem. I do not have first hand report from a friend or relative right now. I have reviewed the admission history and progress notes. She has had some periods of significant tachycardia. She told me that she is aware of palpitations, and sometimes feels woozy or dizzy then. She does not report chest pain. She has chronic shortness of breath and does not report that to be significantly worse when her heart is racing. She reports she has never had serious head injury, diagnosed stroke, diagnosed seizure, or other neurologic event. She denies ethanol abuse. She told me that she supervises her medications herself at home and I do not know if that is accurate. There is reported past history of lung cancer, SVT, COPD with home O2 at night. Her home medicine list includes alprazolam, and she told me she takes 0.5 mg tablet some days, not every day. Her urine drug screen was negative for benzodiazepine on this admission. She has hydrocodone as needed for pain, and urine drug screen was negative for opiates on admission. Admission record indicates she had taken steroids, but I do not know the duration or dose. Home medicine list recorded on admission includes alprazolam and hydrocodone as above. I do not see anything else on the list that likely would contribute to encephalopathy. Workup includes brain MRI done with and without contrast reported unremarkable. CSF reports are unremarkable. Lab shows anemia. Sodium has ranged 129 to 133. Blood sugars are mid 100s. Vital signs record shows she has been afebrile. Systolic blood pressure was recorded 98 once, otherwise 120s-170s. PHYSICAL EXAMINATION: On exam, Ms. Vargas is awake, alert, and attentive. During most of the interview, she had her eyes closed but she answered questions appropriately. Speech is not significantly dysarthric. Language function is intact on bedside testing. Remote memory is good. Recent memory is fair. She was oriented to the correct name of the hospital, president, month and day of the month. I did not test her cognitive function more thoroughly. Head and neck are unremarkable. Visual puentes are full tested grossly by confrontational finger counting. Extraocular movements are full. Facial motility is little bit diminished bilaterally, but symmetric. Gag is intact. Tongue is midline. She can hear. Shoulder shrug is equal, but seems a little bit uncomfortable bilaterally, more on the left. Strength is normal in the arms and legs. She reports discomfort in her back limiting full effort when testing the leg muscles vigorously, but there is no definite motor deficit. Limb tone is symmetric. Plantar response is silent bilaterally. Reflexes are absent at the knees and ankles, and 1+ at the wrists bilaterally. She reports good pinprick appreciation over the hands and stocking pattern of sensory loss to pinprick testing over the feet. I did not test her gait. IMPRESSION: 1. Reported periods of fluctuating mental status. I do not have a definite explanation. I do not see any obvious metabolic explanation. History does not sound like seizure. I do not know the extent of her steroid use, but steroid encephalopathy is a consideration. Alprazolam and hydrocodone could cause encephalopathy with fluctuations if doses were intoxicating and/or sedating, but doses recorded here should not be intoxicating or sedating. Other medications could be playing a role, but on review of home and hospital lists, I do not see anything obvious. 2. I wonder if she might have a baseline cognitive impairment syndrome which would predispose her to encephalopathy with any toxic or metabolic disturbance, even a very minor disturbance. 3. 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 I don't think this needs urgent evaluation. 4. Reported lung cancer. I do not see evidence of metastatic brain disease. She does not seem to have a paraneoplastic syndrome or autoimmune encephalitis on clinical grounds. I do not have any urgent suggestion. I will order EEG and follow up with her. Negative MRI is reassuring. I do not think we need to do anything else urgently. Thanks for asking Neurology to see Ms. Vargas. cc: MD MCKENNA Snider III
[2018-09-16] MEDS: PREDNISONE PO SCH (15:31)
--- NOTE | 2018-09-16 17:23 | EEG REPORT ---
DATE: 09/16/2018 LOCATION: [facility] bed 4 EEG NUMBER: [id number]. COMMENT: This is a digitally recorded EEG done portably in the CICU on a 77-year-old patient with reported fluctuating mental status, question of seizure. FINDINGS: There is poorly sustained posterior rhythm reaching 8.5 to 9 hertz bilaterally with uncertain reactivity to eye opening. Background contains abundant polymorphic and rhythmic theta across the frontal and central regions. There is slowing into the delta range frontally with highest amplitude 150 microvolts bilaterally. Frontal slowing is sometimes intermittent and rhythmic. Drowsing occurred briefly. Stage 2 sleep was not recorded. Photic stimulation did not significantly alter the record. Hyperventilation was not done. No definite epileptiform discharge was identified. INTERPRETATION: Abnormal EEG because of generalized slowing and FIRDA. CORRELATION: This is indicative of a diffuse encephalopathy and is nonspecific. Frontal intermittent rhythmic delta activity (FIRDA) is not specific but is often seen with metabolic encephalopathy. Paroxysmal slowing can be associated with seizure but there was not definite epileptiform discharge identified. cc: Priscilla Gill III, MD
[2018-09-16] MEDS: CRESTOR PO SCH (20:41)
[2018-09-17] MEDS: DUONEB (A & A) INH SCH ×4 (03:52→21:30)
[2018-09-17 06:26] LABS: BASO# 0.01 X1000 (0.0-0.2); BASO% 0.1 % (0.0-0.8); HEMATOCRIT 38.9 % (37.0-47.0); HEMOGLOBIN 12.9 g/dL (12.0-16.0); IMM GRAN# 0.08 X1000 (0.0-0.04); IMM GRAN% 0.7 % (0.0-0.5); LYMPH# 0.81 X1000 (1.2-3.4); MCH 30.5 PG (27-31); MCHC 33.2 g/dL (33-37); MONO# 0.95 X1000 (0.11-0.59); MONO% 8.2 % (1.7-9.3); MPV 9.8 FL (7.4-10.4); NEUT# 9.77 X1000 (1.4-6.5); PLT 264 X1000 (130-400); RBC 4.23 XMIL (4.2-5.4); RDW 15.8 % (11.5-14.5); WBC 11.62 X1000 (4.8-10.8)
[2018-09-17 06:35] LABS: CALCIUM 8.9 mg/dL (8.8-10.2); CREATININE 1.1 mg/dL (0.5-0.9); MAGNESIUM 1.9 mg/dL (1.5-2.7); POTASSIUM 3.6 mmol/L (3.5-5.1)
--- NOTE | 2018-09-17 08:49 | EKG Report ---
Test Performed on : 09/17/2018 04:05:51 AM Test Reason : afib with rvr Blood Pressure : / mmHG Vent. Rate : 144 BPM Atrial Rate : 326 BPM P-R Int : 000 ms QRS Dur : 080 ms QT Int : 286 ms P-R-T Axes : 000 060 131 degrees QTc Int : 442 ms Atrial fibrillation. with rapid ventricular response. Voltage criteria for left ventricular hypertrophy Marked ST abnormality, possible inferior subendocardial injury Abnormal ECG When compared with ECG of 14-SEP-2018 10:14, (Unconfirmed) Atrial fibrillation. has replaced Atrial flutter. ST more depressed in Inferior leads Nonspecific T wave abnormality no longer evident in Inferior leads Confirmed by Tanika BENSON, Tico Atkins ([id number]) on 09/17/2018 9:44:11 AM
[2018-09-17] MEDS: ELIQUIS PO SCH ×2 (09:33→20:26)
[2018-09-17] MEDS: ASPIRIN PO SCH (09:33)
[2018-09-17] MEDS: CYANOCOBALAMIN IM SCH (09:34)
[2018-09-17] MEDS: TUMS PO SCH ×3 (09:34→20:26)
[2018-09-17] MEDS: CARDIZEM CD PO SCH (09:34)
[2018-09-17] MEDS: VITAMIN B-12 PO SCH (09:34)
[2018-09-17] MEDS: SEPTRA DS PO SCH ×2 (09:35→20:26)
[2018-09-17] MEDS: MUCINEX PO SCH ×2 (09:35→20:26)
[2018-09-17] MEDS ORDERED: NS 1,000 ML IV SCH (11:45)
[2018-09-17] MEDS: LOPRESSOR PO SCH ×2 (12:11→20:26)
--- NOTE | 2018-09-17 14:23 | PROGRESS NOTE ---
DATE: 09/17/2018 LOCATION: [facility] Bed 4. SUBJECTIVE: Ms. Vargas has not had clinically recognized seizure or other acute neurologic event. OBJECTIVE: She is awake and alert. She had some appropriate conversation with me, but seemed to have trouble finding words at times. She did well with bedside tasks for right/left distinction and digit distinction, but she had some trouble naming objects and parts of objects. She had trouble with repeating. She is a little bit frail, but seems to have symmetric strength in the limbs. Visual puentes are full tested grossly. IMPRESSION: Fluctuating mental status, question of left hemisphere feature with possible dysphasia noted on exam today. Workup includes brain MRI done with and without contrast 09/12/2018 and that shows some old changes, but nothing focal or acute and specifically no definite left hemisphere finding. EEG showed generalized slowing and FIRDA, but nothing focal. Lab shows some fairly minor metabolic abnormalities, but nothing that generally would be associated with encephalopathy. Spinal fluid several days ago was unremarkable. I do not have a definite diagnosis. I still wonder if she might have a baseline cognitive impairment syndrome. We might consider prolonged EEG later. Although seizure has not been documented, I will empirically add levetiracetam today and follow clinically. Thanks for asking Neurology to see Ms. Vargas. cc: MD MCKENNA Snider III
[2018-09-17] MEDS ORDERED: THIAMINE 100 MG in NS 50 ML IV ONE (14:30)
[2018-09-17] MEDS: KEPPRA PO SCH ×2 (15:00→20:25)
[2018-09-17] MEDS: PREDNISONE PO SCH (15:00)
[2018-09-17] MEDS: BREO ELLIPTA 100/25 MCG INH INH SCH ×2 (15:12→21:30)
[2018-09-17] MEDS: SPIRIVA INH SCH (15:13)
--- NOTE | 2018-09-17 16:11 | PROGRESS NOTE ---
DATE: 09/17/2018 HOSPITAL COURSE SUMMARY: Ms. 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 While inside the hospital, she is also being treated for paroxysms of supraventricular tachycardia. All workup including CT scan head, MRI brain, lumbar puncture have been unremarkable so far and EEG was also unrevealing. SUBJECTIVE: Patient appears alert but confused. She talks about some things or a few things that do not make sense. The patient's family is at bedside. VITAL SIGNS: Temperature 97.8 degrees, pulse 63, respiratory rate 16, blood pressure 130/71, saturating 95% on room air. PHYSICAL EXAMINATION: General: The patient does not appear in any acute distress. She is occasionally tremulous in the upper extremities. HEENT: Oral cavity is moist. Respiratory: She does appear to have increased crackles on the right side of the chest today as compared to before, for which I have ordered a chest x-ray. No wheeze or rhonchi. Cardiovascular: S1, S2 normal. No murmur or gallop. Abdomen: Soft, nontender. Extremities: No lower extremity edema except mild ankle edema. Neurologic: She is alert. She is oriented to herself. She is slow to respond. Sometimes she is able to tell me that I am Dr. Thomas, but she is not entirely oriented with the situation. Her mental status has been very fluctuating. She has not been eating well. LABS: Today suggestive of mild leukocytosis. Normal hemoglobin, hematocrit, and platelet count. Mild hyponatremia and hypochloremia and elevated creatinine. Her urine Streptococcus Legionella antigen, RPR have been unremarkable. CSF analysis for herpes and enterovirus have been negative. ASSESSMENT AND PLAN: 1. Acute encephalopathy on presentation which started about 8 hours before presentation acutely. CSF analysis, MRI brain, and EEG have been unremarkable so far and that is why I consulted Neurology. I appreciate recommendation. She has been on prednisone for over 4 weeks for immune checkpoint inhibitor-induced colitis, which could potentially cause psychosis. However, such acute onset was not expected. She also has pneumonia and she is being treated for it with antibiotics. Continue Vitamin B12 supplementation. 2. Stenotrophomonas pneumonia. Though the initial chest x-ray did not have significant infiltrate, sputum did grow the bacteria and I am keeping her on Bactrim. I will get a chest x-ray as she had crackles on my examination today to rule out any right lower lung worsening consolidation. 3. Paroxysmal supraventricular tachycardia with intermittent atrial fibrillation, atrial flutter with heart rate as high as 190. Continue current dose of diltiazem and add metoprolol. I will consult Cardiology. I am keeping her on Eliquis for now. At the time of discharge, I will again hold discussion with the family about discontinuing it considering her high fall risk and bleeding risk. 4. Poor nutrition. I will start patient on intravenous fluids. She has had fluctuating oral intake during this hospital admission. 5. Hyponatremia, hypochloremia, and acute kidney injury on presentation, now improved. Continue intravenous fluids. 6. Others. Continue albuterol ipratropium nebulization, fluticasone, vilanterol nebulization, thyrotropin and guaifenesin for history of COPD; Tums for hypocalcemia; prednisone for immune colitis and I am decreasing her dose today. Her dose needs to be tapered by 10 mg every Saturday. 7. Disposition. Continue to monitor patient in [facility]. Plan of care discussed with the patient. I will have physical therapy evaluate the patient; however, patient was too weak. Eventually once her mental status improves, plan is for her to go to rehab whenever we find a bed in the future. cc: Josesito Thomas MD MTDD
--- NOTE | 2018-09-17 16:44 | Diag Imaging Result Doc PS360 ---
EXAM: CHEST-PORTABLE 09/17/2018 HISTORY: Right inframammary crackles. Eval for new consolit TECHNIQUE: AP portable semiupright chest at 1634 COMMENT: There is COPD. Compared to 09/11/2018 there has been no significant change. IMPRESSION: Stable chest. Electronically signed by Matt Velazco 09/17/2018 4:42 PM
--- NOTE | 2018-09-17 18:19 | CARDIOLOGY CONSULTATION ---
DATE: 09/17/2018 IMPRESSION: 1. Recurrent atrial arrhythmias with tachycardia, including atrial flutter and possibly atrial fibrillation. Patient also had manifested what appears to be multifocal atrial tachycardia on previous admission. 2. Encephalopathy, probably metabolic in origin. 3. Small cell lung cancer. Patient undergoing chemotherapy. RECOMMENDATIONS: 1. Adjust beta yonas and diltiazem for rate control. 2. Anticoagulation with Eliquis as tolerated and as permitted clinically. 3. If patient has persistent problems with atrial tachyarrhythmias, we will consider amiodarone. 4. Check TSH. 5. Hydrate and try to improve nutrition. HISTORY: This 77-year-old white female with past history of small cell lung cancer requiring chemotherapy and previous atrial arrhythmias was admitted because of confusion in the past day or so. She demonstrated atrial tachyarrhythmias, and for this reason, Cardiology was consulted. She relates some occasional brief palpitations. She is not aware of any previous cardiac problems. There is no history of chest pain nor shortness of breath. She has been started on Eliquis for anticoagulation. PAST MEDICAL HISTORY: 1. Chronic obstructive pulmonary disease. 2. Bilateral small cell lung cancer. 3. Gastroesophageal reflux disease. 4. Hypertension. 5. Previous colitis. PAST SURGICAL HISTORY: Includes hysterectomy and central venous port placement. ALLERGIES: She has multiple allergies as listed. MEDICATIONS PRIOR TO ADMISSION: As listed. SOCIAL HISTORY: She quit smoking 2 years ago. She does not use alcohol. FAMILY HISTORY: Negative for premature coronary disease. REVIEW OF SYSTEMS: Pulmonary: Negative for dyspnea. She has had some nonproductive cough. Gastrointestinal: Negative. Constitutional: Noncontributory. The remainder of the review of systems negative/noncontributory with 14 total systems reviewed. PHYSICAL EXAMINATION: This is a thin, elderly white female in no distress. Blood pressure 131/71, heart rate 63. Weight 129 pounds.HEENT: Extraocular movements appear intact. Mucous membranes moist. Neck is supple. Neck veins are flat. Chest is clear to auscultation. Cardiac exam reveals a regular rate and rhythm without appreciable murmur or gallop. Abdomen is soft. Bowel sounds are normal. Extremities are without edema. Neurologic exam reveals her to be awake and responsive. She is oriented to person, place, and time. However, she seems to demonstrate some confusion. She moves all 4 extremities equally well. Speech is fluent. DIAGNOSTIC STUDIES: Review of ECG during atrial tachyarrhythmia demonstrates atrial flutter with rapid ventricular rate. ECG baseline demonstrates normal sinus rhythm and is within normal limits. Laboratory data includes a sodium 138, potassium 3.6, chloride 93, carbon dioxide 21, BUN 18, creatinine 1.1, glucose 109. White blood cell count 11.62. Hematocrit 38.9, hemoglobin 12.9, platelet count 264,000. Magnesium 1.9. cc: Jd Campbell MD
[2018-09-17 18:52] LABS: URINE SOURCE CATH
[2018-09-17 19:16] LABS: BILIRUBIN URINE NEGATIVE (NEGATIVE); BLOOD URINE NEGATIVE (NEGATIVE); COLOR YELLOW; GLUCOSE URINE TRACE mg/dL (NEGATIVE); KETONE URINE 20 mg/dL (NEGATIVE); LEUKOCYTES URINE NEGATIVE (NEGATIVE); NITRITE URINE NEGATIVE (NEGATIVE); PH URINE 6.5; PROTEIN URINE 70 mg/dL (NEGATIVE); SP GRAVITY URINE 1.014; TURBIDITY URINE CLEAR (CLEAR); UROBILINOGEN URINE NORMAL (NORMAL)
[2018-09-17 19:17] LABS: UR EPITHELIAL CELLS <10 /HPF (<10); URINE BACTERIA NEGATIVE /HPF; URINE RBC <10 /HPF (<10); URINE WBC <10 /HPF (<10)
[2018-09-17] MEDS: CRESTOR PO SCH (20:26)
[2018-09-17] MEDS: LIDODERM TOP SCH (20:26)
[2018-09-18] MEDS: DUONEB (A & A) INH SCH ×3 (04:25→21:10)
--- NOTE | 2018-09-18 07:09 | EKG Report ---
Test Performed on : 09/18/2018 06:48:20 AM Test Reason : afib Blood Pressure : / mmHG Vent. Rate : 068 BPM Atrial Rate : 068 BPM P-R Int : 140 ms QRS Dur : 074 ms QT Int : 420 ms P-R-T Axes : 084 070 084 degrees QTc Int : 446 ms Normal sinus rhythm. Possible Left atrial enlargement Borderline ECG When compared with ECG of 17-SEP-2018 04:05, Sinus rhythm. has replaced Atrial fibrillation. Vent. rate has decreased BY [address] no longer depressed in Inferior leads ST no longer depressed in Anterolateral leads T wave inversion no longer evident in Lateral leads Confirmed by Tanika BENSON, Tico Atkins ([id number]) on 09/19/2018 11:59:30 AM
[2018-09-18] MEDS: SPIRIVA INH SCH (08:13)
[2018-09-18] MEDS: BREO ELLIPTA 100/25 MCG INH INH SCH ×2 (08:13→21:10)
[2018-09-18] MEDS: KEPPRA PO SCH ×2 (08:39→20:25)
[2018-09-18] MEDS: LOPRESSOR PO SCH ×2 (08:39→20:25)
[2018-09-18] MEDS: CARDIZEM CD PO SCH (08:40)
[2018-09-18] MEDS: MUCINEX PO SCH ×2 (08:40→20:25)
[2018-09-18] MEDS: VITAMIN B-12 PO SCH (08:40)
[2018-09-18] MEDS: ASPIRIN PO SCH (08:40)
[2018-09-18] MEDS: SEPTRA DS PO SCH ×2 (08:40→20:24)
[2018-09-18] MEDS: LIDODERM TOP SCH (08:40)
[2018-09-18] MEDS: TUMS PO SCH ×3 (08:43→20:25)
[2018-09-18] MEDS: ELIQUIS PO SCH ×2 (08:43→20:25)
--- NOTE | 2018-09-18 09:57 | PROGRESS NOTE ---
DATE: 09/18/2018 SUBJECTIVE: The patient is resting comfortably in bed. At the moment of the physical exam, this patient was eating. She is not complaining of dysphagia. She seems to be confused, but she is oriented to place. She is able to say her name and date of , but it looks like she fluctuates on and off. She is not quite oriented to situation, and she frequently starts talking about her family members, and that does not make any sense. She moves a little bit all 4 extremities. She moves especially her upper extremities. Physical Therapy on board. OBJECTIVE: Vital Signs: Temperature 98 degrees, pulse 70, respiratory rate 16, blood pressure 134/50, oxygen saturation 98 on room air. HEENT: Head normocephalic. No trauma. PERRLA. Neck: Supple. No JVD. No masses. Central trachea. Chest: Some crepitus on the right base. Cardiovascular: RRR. Abdomen: Soft, nontender, nondistended. Extremities: Trace edema. No clubbing. No cyanosis. Neurological: This patient is oriented to person. She knows she is in [facility], and she is able to say her date of , but her answers are slow, and constantly she starts talking about family members or situations that are not related to this hospitalization. She is not oriented completely to situation. Mental status has been is fluctuating. She is tolerating p.o., not complaining of dysphagia, but she is not eating too much. LABORATORY DATA: I will recheck the lab work in the morning. ASSESSMENT AND PLAN: 1. Acute encephalopathy on presentation, which apparently started about 8 hours before coming to the hospital. Cerebrospinal fluid culture and blood culture are negative, as well as brain MRI and head CT. I am not sure if this is related to medication or if she has a baseline cognitive impairment. She is answering some of my questions, but she is still not completely oriented, but I do not know her baseline. No family member is at the bedside. Continue physical therapy. I have started this patient on B12 replacement with intramuscular injections. 2. Stenotrophomonas pneumonia. Continue with the same management. Chest x-ray done yesterday showed chronic obstructive pulmonary disease, and compared with the x-ray done on 09/11/2018 did not show any big changes. 3. Paroxysmal supraventricular tachycardia/atrial flutter, better control. She is in normal sinus at this moment, Eliquis, and she is not having palpitations or chest pain. Cardiology on board. 4. Poor nutrition. Continue with the same management. She is tolerating by mouth. 5. Hyponatremia. She had an acute kidney injury on presentation, that is better. Creatinine is a little bit elevated though today, but she has a decent urine output. We will just monitor. 6. Physical deconditioning. Continue physical therapy. 7. Possible constipation. She has not had any bowel movement reported since 09/14/2018. I will put this patient on MiraLAX to see how she does. 8. Vitamin B12 deficiency. I have started this patient on intramuscular B12 replacement. We will monitor. cc: Matteo Webb MD
[2018-09-18] MEDS: MIRALAX PO SCH (10:16)
[2018-09-18] MEDS: CYANOCOBALAMIN IM SCH (10:16)
--- NOTE | 2018-09-18 14:53 | PROGRESS NOTE ---
DATE: 09/18/2018 LOCATION: [facility] bed 4. Ms. Vargas was sleeping as I approached the bedside. With minimal stimulation she seemed awake and mumbled some responses but she did not communicate consistently with me. When I stopped rubbing shoulder and arm, she seemed quickly back to sleep. I have reviewed the hospital notes. She was apparently awake, alert, feeding herself this morning. Levetiracetam was added empirically without any definite evidence of seizure but concern for possible seizure as an explanation for her fluctuating mental state. She has good renal function and should not have levetiracetam toxicity on current dose. I do not think drowsiness can be attributed to Levetiracetam. No new suggestions. We will continue levetiracetam at least short term and follow clinically. I suspect she more likely has a baseline cognitive impairment syndrome with exacerbation associated with medical illness and hospitalization. Thanks for asking Neurology to see Ms. Vargas. cc: Priscilla Gill III, MD
[2018-09-18] MEDS: THIAMINE 100 MG in NS 50 ML IV SCH (15:21)
[2018-09-18] MEDS: PREDNISONE PO SCH (15:22)
--- NOTE | 2018-09-18 18:38 | PROGRESS NOTE ---
DATE: 09/18/2018 SUBJECTIVE: The patient continues somewhat drowsy. She arouses to verbal stimuli, but talks somewhat unintelligibly. She then goes back to sleep. OBJECTIVE: Vital signs: Blood pressure 110/43, heart rate 66, oxygen saturation 96% on room air. Neck: There is no significant jugular distention. Chest: Clear to auscultation. Cardiac Exam: Reveals a regular rate and rhythm without appreciable murmur or gallop. Extremities: Without edema. LABORATORY DATA: Includes a white blood cell count 11.62, hematocrit 38.9, hemoglobin 12.9, platelet count 264,000. Sodium 130, potassium 3.6, chloride 93, carbon dioxide 21, BUN 18, creatinine 1.1, glucose 109. TSH 3.99. IMPRESSIONS: 1. Recurrent atrial arrhythmias including paroxysmal atrial flutter. Patient continues in sinus rhythm. 2. Encephalopathy. 3. Small cell lung cancer. RECOMMENDATIONS: 1. Continue beta yonas and diltiazem for rate control. 2. Anticoagulation with Eliquis as tolerated and permitted clinically. 3. If persistent problems with paroxysmal atrial flutter, we will consider amiodarone. cc: Jd Campbell MD MTDD
[2018-09-18] MEDS: CRESTOR PO SCH (20:25)
[2018-09-19] MEDS: DUONEB (A & A) INH SCH ×5 (03:24→20:27)
[2018-09-19 06:25] LABS: IRON SATURATION 15 %; TIBC 193 ug/dL; TOTAL IRON 29 ug/dL (49-151); UNBOUND IRON 164 ug/dL (112-346)
[2018-09-19 06:31] LABS: CALCIUM 8.9 mg/dL (8.8-10.2); CREATININE 1.4 mg/dL (0.5-0.9); MAGNESIUM 1.9 mg/dL (1.5-2.7); POTASSIUM 3.9 mmol/L (3.5-5.1)
[2018-09-19 06:56] LABS: HEMATOCRIT 28.5 % (37.0-47.0); HEMOGLOBIN 9.5 g/dL (12.0-16.0); IMM GRAN# 0.03 X1000 (0.0-0.04); IMM GRAN% 0.4 % (0.0-0.5); LYMPH# 0.49 X1000 (1.2-3.4); LYMPH% 6.4 % (20.5-51.1); MCH 30.8 PG (27-31); MCHC 33.3 g/dL (33-37); MCV 92.5 FL (81-99); MONO# 0.57 X1000 (0.11-0.59); MONO% 7.5 % (1.7-9.3); NEUT# 6.53 X1000 (1.4-6.5); NEUT% 85.7 % (42.2-75.2); PLT 208 X1000 (130-400); RBC 3.08 XMIL (4.2-5.4); RDW 15.7 % (11.5-14.5); WBC 7.62 X1000 (4.8-10.8)
[2018-09-19] MEDS: BREO ELLIPTA 100/25 MCG INH INH SCH ×2 (08:24→20:25)
[2018-09-19] MEDS: SPIRIVA INH SCH (08:24)
[2018-09-19] MEDS: CARDIZEM CD PO SCH (08:35)
[2018-09-19] MEDS: KEPPRA PO SCH (08:35)
[2018-09-19] MEDS: ELIQUIS PO SCH (08:35)
[2018-09-19] MEDS: FOLIC ACID PO SCH (08:35)
[2018-09-19] MEDS: LOPRESSOR PO SCH (08:35)
[2018-09-19] MEDS: ASPIRIN PO SCH (08:35)
[2018-09-19] MEDS: SEPTRA DS PO SCH (08:35)
[2018-09-19] MEDS: MUCINEX PO SCH (08:35)
[2018-09-19] MEDS: TUMS PO SCH ×2 (08:35→15:24)
[2018-09-19] MEDS: CYANOCOBALAMIN IM SCH (08:36)
[2018-09-19] MEDS: MIRALAX PO SCH (08:36)
[2018-09-19] MEDS ORDERED: NS 500 ML IV SCH (08:45)
[2018-09-19] MEDS ORDERED: CYANOCOBALAMIN IM SCH (09:00)
--- NOTE | 2018-09-19 09:32 | PROGRESS NOTE ---
DATE: 09/19/2018 SUBJECTIVE: The patient resting comfortably in bed and actually she is eating at the moment of my physical exam. As per the patient she is feels better. She is not in pain today. She is alert and oriented to person, place. She knows her date of . She is not oriented to time and she has been confused on and off about her situation. Her folate level is low, so I will replace it as well. She has been on prednisone due to her history of nivolumab-induced colitis. She was taking 40 at the beginning and now I believe it is less than that. She had a history of bilateral small cell lung cancer. I am not quite sure if she has been on recent treatment. OBJECTIVE: Vital Signs: Temperature 98.1 degrees, pulse 68, respiratory rate 17, blood pressure 110/43, oxygen saturation 94% on room air. HEENT: Head normocephalic, atraumatic, PERRLA. Neck: Supple. No JVD. No masses. Central trachea. Chest: There is some crepitus on the right base. Cardiovascular: RRR. Abdomen: Soft, nontender, nondistended. No hepatosplenomegaly. Extremities: No edema. No clubbing no cyanosis. Neurological: The patient is completely alert. She is oriented to person and place. She is able to say her date of . She moves all 4 extremities. She seems to be more oriented today compared with yesterday. She is not or completely oriented to her situation. She is not oriented to time. LABORATORY: WBC 7.6, hemoglobin 9.5, hematocrit 28.5, platelets 208,000, sodium 133, potassium 3.9, chloride 97, bicarbonate 26, BUN 30, creatinine 1.4, glucose 127, calcium 8.9, iron 29, but total iron binding capacity 193, folate level is 2. ASSESSMENT AND PLAN: 1. Acute encephalopathy on presentation, which apparently started about 8 hours before coming to the hospital. 2. CSF, culture and blood culture are negative, brain MRI and head CT are negative for any acute process. I am not sure if this was related to medications or if she has a baseline cognitive impairment. She is better today. She is answering my questions but of course, she is confused to situation, and time. I am not quite sure if this is her baseline. No family members at the bedside. We will continue physical therapy. I have started this patient already on B12 replacement and today I will start this patient on folate treatment. 3. Stenotrophomonas pneumonia. Continue with the same management. X-ray done yesterday shows COPD, but compared with x-ray done on 09/11/2018 did not show any big changes. 4. Paroxysmal supraventricular tachycardia/atrial flutter better controlled. Continue with Eliquis. No chest pain or palpitations. Cardiology on board. 5. Poor nutrition. This patient has been eating better today. When I evaluated this patient at the bedside she was actually eating and she was hungry. 6. Hypernatremia, better compared with yesterday. She had a acute kidney injury on presentation, and actually her creatinine increased again, her urine output during the night was around 45 mL/h. I will give her an extra dose of normal saline 500 mL slow rate to see how she does since she is eating. 7. Physical deconditioning. Continue physical therapy. 8. Possible constipation. Continue with MiraLAX. 9. Vitamin B12 deficiency and folate deficiency, I will continue to replace both. 10. History of bilateral small cell lung cancer, I am not quite sure if this patient has been getting recent treatment; I will check with Hematology/Oncology Department. 11. History of nivolumab-induced acute colitis, on prednisone, continue with same management. 12. History of chronic obstructive pulmonary disease, not in exacerbation. She is on home O2 during the night. 13. Mild acute kidney injury, I will give her some fluids today and I will reevaluate tomorrow. cc: Matteo Webb MD
--- NOTE | 2018-09-19 09:43 | PROGRESS NOTE ---
DATE: 09/19/2018 SUBJECTIVE: Ms. Vargas is propped up in bed, awake, alert, attentive. She had appropriate conversation with me. She was feeding herself breakfast, chewing and swallowing without difficulty, speaking clearly even with mouth full. She provided correct answer when asked to name the hospital, the President, the month. She missed the day of the week. PLAN: I do not have any new suggestion from Neurology standpoint right now. I would continue levetiracetam short-term. There is no evidence of sedating effect with that drug. I discussed with her the uncertainty regarding seizure and fact that we have not made a definite seizure diagnosis. Thanks for asking Neurology to see Ms. Vargas. cc: Priscilla Gill III, MD MTDD
--- NOTE | 2018-09-19 14:37 | Diag Imaging Result Doc PS360 ---
EXAM: CT THORAX W/O CONTRAST INDICATION: ?pneumonitis on OPDIVO TECHNIQUE: This exam was performed using automated exposure control, adjustment of mA or kV according to patient size, and/or use of iterative reconstruction technique. COMPARISON: CT abdomen and pelvis dated 08/14/2018. No prior CT chest is available for comparison. FINDINGS: There is bibasilar mucous plugging with tree-in-bud infiltrates at both lung bases. This was also seen on the previous abdominal CT. The infiltrate has actually improved on the right as compared to the previous study and is approximately stable on the left. There are mild to moderate emphysematous changes with an apical predominance. There is fibrosis at the medial right upper lobe adjacent to the hilum that may represent post treatment changes. There is no pleural fluid collection and no pneumothorax. No significant mediastinal or hilar lymphadenopathy can be identified given the limitations of an unenhanced study. There is no cardiomegaly. There is minimal pericardial fluid, stable. There is extensive aortic atherosclerotic calcification. Limited views of the upper abdomen reveals bilateral adrenal nodules that are stable, largest on the left. The density on the unenhanced study is highly consistent with adenomas. There are a couple of nondisplaced fractures involving the 19th 10th ribs posteriorly with bony callus indicating healing. These can be seen on the previous abdominal CT where they appeared to be acute. No suspicious bony lesions are appreciated. IMPRESSION: 1.Mucous plugging and tree-in-bud consolidations at both lung bases that is more significant on the left. This can be seen on the previous CT as described but has improved slightly on the right. 2.Focal scarring at the medial right upper lobe that may be treatment related. 3.Healing fractures of the left ninth and 10th ribs posteriorly as described. 4.Other incidental/nonacute findings detailed above. Electronically signed by Hector Gonsalez 09/19/2018 2:35 PM
[2018-09-19] MEDS ORDERED: VENOFER 300 MG in NS 250 ML IV SCH (15:00)
[2018-09-19] MEDS: THIAMINE 100 MG in NS 50 ML IV SCH (15:24)
[2018-09-19] MEDS: PREDNISONE PO SCH (15:24)
--- NOTE | 2018-09-19 19:03 | HEMO/ONC CONSULTATION ---
DATE: 09/19/2018 ADMITTING PHYSICIAN: Dr. Thomas. REQUESTING PHYSICIAN: Dr. Thomas. We appreciate this consult. CHIEF COMPLAINT: Small cell lung cancer. HISTORY OF PRESENT ILLNESS: Ms. Keren Vargas is a pleasant 77-year-old female, well known to Dr. Fischer with a history of small cell lung cancer, currently being treated with Opdivo. The patient actually missed her dose of Opdivo on 09/11/2018 secondary to hospitalization. The patient does have a recent history of immune mediated acute colitis secondary to Opdivo. The patient was brought to [facility] secondary to acute encephalopathy. She was admitted to coronary care unit secondary to paroxysmal supraventricular tachycardia. Additionally, upon arrival, the patient was found to be hypernatremic and hypokalemic with hypomagnesium as well. The patient was progressing well; however, she continues to have ongoing intermittent bouts of confusion. We are consulted as the patient is well known to us, currently on immunotherapy. PAST MEDICAL HISTORY: 1. Small cell lung cancer. 2. COPD. 3. Hypertension. 4. Hyperlipidemia. 5. Osteoarthritis. 6. Osteoporosis. 7. Gastroesophageal reflux disease. 8. Obstructive sleep apnea. 9. Fibromyalgia. 10. Left adrenal adenoma. 11. Recent immune mediated colitis. PAST SURGICAL HISTORY: 1. Hysterectomy. 2. Port placement. SOCIAL HISTORY: The patient does not currently use tobacco, alcohol, or illicit drugs. FAMILY HISTORY: Negative for any hematologic or oncologic disease. MEDICATIONS ON ADMISSION: 1. Albuterol. 2. Lotensin. 3. Lidocaine/prilocaine topical cream. 4. Zofran. 5. Prednisone. 6. Oncowash. 7. Prilosec. 8. Spiriva Respimat. 9. Lasix. 10. Breo Ellipta. ALLERGIES: Avelox, clindamycin, Flonase, Levaquin, metal, Neosporin, and penicillins. REVIEW OF SYSTEMS: A 14 point review of systems is unable to be obtained secondary to persistent confusion. PHYSICAL EXAMINATION: General: Ms. Vargas is a 77-year-old female lying supine in bed in no immediate distress. Vital Signs: Temperature 98.1, blood pressure 110/43, heart rate 106, respirations 16, O2 saturation 95% on room air. HEENT: Normocephalic, atraumatic. Mucous membranes pale and moist. Sclerae anicteric. Extraocular movements intact. Neck: Supple. Lungs: Clear to auscultation bilaterally. Chest expansion equal bilaterally. CV: S1, S2 heard. The patient is tachycardic and. No murmurs, rubs, or gallops. Abdomen: Nondistended, nontender. Bowel sounds positive all quadrants. No rebound or guarding noted. Extremities: Without clubbing, cyanosis, or edema. Dermatologic: No rashes, bruises, or lesions. Neurologic: The patient is awake, alert, and oriented x3 and has no focal deficit. LABORATORY DATA: Hemoglobin 9.5, hematocrit 28.5, white blood cell count 7.68, platelets 208,000. Sodium 133, potassium 3.9, chloride 97, CO2 is 26, BUN 30, creatinine 1.4, glucose 127, magnesium 1.9, and iron saturation is 15%. ASSESSMENT AND PLAN: 1. Small cell lung cancer, currently on Opdivo. The patient actually missed a dose on 09/11/2018 secondary to hospitalization. We will schedule treatment when feasible. 2. Encephalopathy persists. Workup is currently pending. 3. Streptococcal pneumonia, questionably immune mediated pneumonitis. We will obtain a CT of the chest to rule out immune mediated pneumonitis. If the patient does, in fact, have pneumonitis, the patient will begin steroid treatment. 4. Paroxysmal supraventricular tachycardia. The patient is currently on Eliquis. Cardiology is following. 5. We will follow along with you and make further recommendations pending outcomes. The above report is the history, exam, assessment, and plan of Dr. Fischer. Dictated by JESSICA Cash for Rohit Fischer MD cc: JESSICA Cash MD
--- NOTE | 2018-09-19 19:04 | PROGRESS NOTE ---
DATE: 09/19/2018 SUBJECTIVE: The patient is awake and interactive. She is seems to answer questions appropriately but then tends to make tangential melgar. She is oriented to person and place but not to day of the week. She does not manifest any further atrial flutter. OBJECTIVE: Vital Signs: Blood pressure 132/58, heart rate 68 and regular with ECG monitor showing sinus rhythm, oxygen saturation 97% on room air. Neck: There is no significant jugular venous distention. Chest: Clear to auscultation. Cardiac: Reveals a regular rate and rhythm without appreciable murmur or gallop. Extremities: Without edema. LABORATORY DATA: Includes a white blood cell count of 7.62, hematocrit 28.5, hemoglobin 9.5, platelet count 208,000. Sodium 133, potassium 3.9, chloride 97, carbon dioxide 26, BUN 30, creatinine 1.4, glucose 127. Magnesium 1.9. IMPRESSION: 1. Recurrent atrial arrhythmias including paroxysmal atrial flutter. The patient continues in sinus rhythm. 2. Encephalopathy, improving. 3. Small-cell lung cancer. 4. Hypertension. RECOMMENDATIONS: 1. Continue current regimen of beta-yonas and diltiazem for rate control. 2. Continue anticoagulation with Eliquis as tolerated and permitted clinically. 3. If persistent problems with paroxysmal atrial flutter, consider amiodarone. 4. We will see further as an inpatient on an as-needed basis. cc: dJ Campbell MD
[2018-09-20] MEDS: CRESTOR PO SCH ×2 (00:04→22:35)
[2018-09-20] MEDS: KEPPRA PO SCH ×3 (00:04→22:35)
[2018-09-20] MEDS: FOLIC ACID PO SCH ×3 (00:05→22:35)
[2018-09-20] MEDS: LOPRESSOR PO SCH ×3 (00:05→22:35)
[2018-09-20] MEDS: MUCINEX PO SCH ×3 (00:05→22:37)
[2018-09-20] MEDS: ELIQUIS PO SCH ×3 (00:05→22:35)
[2018-09-20] MEDS: SEPTRA DS PO SCH ×3 (00:05→22:38)
[2018-09-20] MEDS: TUMS PO SCH ×4 (00:05→22:37)
[2018-09-20] MEDS: LIDODERM TOP SCH ×2 (01:03→10:25)
[2018-09-20] MEDS: DUONEB (A & A) INH SCH ×4 (03:25→21:56)
[2018-09-20] MEDS: BREO ELLIPTA 100/25 MCG INH INH SCH ×2 (08:01→21:56)
[2018-09-20] MEDS: SPIRIVA INH SCH (08:02)
[2018-09-20 08:07] LABS: AGAP 9; BUN 20 mg/dL (8-22); CALCIUM 8.9 mg/dL (8.8-10.2); CHLORIDE 99 mmol/L (98-107); COSMO 268; CREATININE 0.9 mg/dL (0.5-0.9); ESTIMATED GFR > 60; GLUCOSE 116 mg/dL (70-104); POTASSIUM 4.2 mmol/L (3.5-5.1); SODIUM 132 mmol/L (136-145); TCO2 24 mmol/L (25-35)
[2018-09-20] MEDS: CARDIZEM CD PO SCH (10:01)
[2018-09-20] MEDS: ASPIRIN PO SCH (10:01)
[2018-09-20] MEDS: CYANOCOBALAMIN IM SCH (10:04)
[2018-09-20] MEDS: MIRALAX PO SCH (10:24)
--- NOTE | 2018-09-20 13:38 | PROGRESS NOTE ---
DATE: 09/20/2018 SUBJECTIVE: This patient is resting comfortably in bed, but she is not answering my questions today. Her son is at the bedside. She seems to be disoriented. She is not eating too much today. Her creatinine improved. OBJECTIVE: Vital Signs: Temperature 97.9 degrees, pulse 68, respiratory rate 20, blood pressure 157/53, oxygen saturation 92 on room air. HEENT: Head normocephalic. No trauma. PERRLA. Neck: Supple. No JVD. No masses. Central trachea. Chest: There is some crepitus on the right base. Cardiovascular: RRR. Abdomen: Soft, nontender, nondistended. No hepatosplenomegaly. Extremities: No edema. No clubbing. No cyanosis. Neurological: This patient is alert, but it looks like she is not oriented today. She is not answering my questions or following commands. Her son is at the bedside. She seems to understand my questions but she is not following commands. LABORATORY: Sodium 132, potassium 4.2, chloride 99, bicarbonate 24, BUN 20, creatinine 0.9, glucose 116. Calcium 8.9. ASSESSMENT AND PLAN: 1. Acute encephalopathy on presentation. As per the son apparently everything started about 8 hours before coming to the hospital or so. I do believe this patient has a cognitive impairment, likely she has dementia and the family just did not know that was happening. We did an MRI of the head, 2 CT scans. We had a CSF culture and everything has been negative. We will continue to monitor. We are going to continue replacing her B12 and folate. Likely this patient will need to go to a rehab center. 2. Stenotrophomonas pneumonia. Continue with same management. X-ray 2 days ago showed COPD, and CT scan of the chest done yesterday showed mucus plugging, consolidation in both lungs bases that is more significant on the left. Also, this can be seen on previous CT scan but this is slightly improved on the right side. Focal scarring at the medial right upper lobe that may be treatment related, healing fracture on the left 9th and 10th ribs posteriorly. We will continue with the same management. 3. Paroxysmal supraventricular tachycardia/atrial flutter or atrial fibrillation. Better controlled. Continue with same management. Cardiology on board. 4. Poor nutrition. This patient, yesterday, was eating much better, today, she is not eating too much. We will continue to monitor. 5. Hyponatremia, stable. 6. Physical deconditioning. Continue physical therapy. 7. Possible constipation. Continue with MiraLAX. 8. B12 and folate deficiency. Continue to replace both. 9. History of bilateral small cell lung cancer, followed by Hematology/Oncology Department. 10. History of nivolumab-induced acute colitis. This patient is on prednisone, continue with same management. 11. History of chronic obstructive pulmonary disease, not in exacerbation at this moment. She is on home O2, mostly during the night. 12. Mild acute kidney injury. She received some fluids yesterday. Her kidney function improved. cc: Matteo Webb MD MTDD
[2018-09-20] MEDS: PREDNISONE PO SCH (17:18)
[2018-09-20] MEDS: THIAMINE 100 MG in NS 50 ML IV SCH (17:22)
[2018-09-21] MEDS: DUONEB (A & A) INH SCH ×4 (04:10→22:05)
[2018-09-21 07:40] LABS: HEMATOCRIT 30.5 % (37.0-47.0); HEMOGLOBIN 10.1 g/dL (12.0-16.0); MCH 30.6 PG (27-31); MCHC 33.1 g/dL (33-37); MCV 92.4 FL (81-99); RBC 3.3 XMIL (4.2-5.4); RDW 15.5 % (11.5-14.5); WBC 6.66 X1000 (4.8-10.8)
[2018-09-21 07:57] LABS: CALCIUM 8.6 mg/dL (8.8-10.2); POTASSIUM 4.5 mmol/L (3.5-5.1)
[2018-09-21] MEDS: KEPPRA PO SCH ×2 (09:01→23:20)
[2018-09-21] MEDS: LOPRESSOR PO SCH ×2 (09:01→23:19)
[2018-09-21] MEDS: ELIQUIS PO SCH ×2 (09:01→21:19)
[2018-09-21] MEDS: ASPIRIN PO SCH (09:01)
[2018-09-21] MEDS: CARDIZEM CD PO SCH (09:01)
[2018-09-21] MEDS: MUCINEX PO SCH ×2 (09:01→23:20)
[2018-09-21] MEDS: SEPTRA DS PO SCH ×2 (09:01→21:20)
[2018-09-21] MEDS: FOLIC ACID PO SCH ×2 (09:01→23:20)
[2018-09-21] MEDS: TUMS PO SCH ×3 (09:01→21:21)
[2018-09-21] MEDS: CYANOCOBALAMIN IM SCH (09:01)
[2018-09-21] MEDS: MIRALAX PO SCH (09:02)
[2018-09-21] MEDS: LIDODERM TOP SCH (09:02)
[2018-09-21] MEDS: BREO ELLIPTA 100/25 MCG INH INH SCH ×2 (09:29→19:18)
[2018-09-21] MEDS: SPIRIVA INH SCH (09:29)
--- NOTE | 2018-09-21 13:54 | PROGRESS NOTE ---
DATE: 09/21/2018 SUBJECTIVE: This patient is resting comfortably in bed. She seems to be more alert and awake and oriented today. Actually she answered all my questions, her son is at the bedside and she is tolerating p.o. She does have generalized weakness and the plan is to send this patient to a rehab center. OBJECTIVE: Vital Signs: Temperature 98.2 degrees, pulse 86, respiratory rate 18, blood pressure 126/55, oxygen saturation 98 on room air. HEENT: Head normocephalic. No trauma. PERRLA. Neck: Supple. No JVD. No masses. Central trachea. Chest: There is some crepitus on the right base. Cardiovascular: RRR. Abdomen: Soft, nontender, nondistended. No hepatosplenomegaly. Extremities: No edema, no clubbing, no cyanosis. Neurologic: The patient is alert. She is oriented today. She is answering my questions slowly. She is following commands. Her son is at the bedside and she seems to understand questions and answering the questions slowly. LABORATORY: WBC 6.6, hemoglobin 10.1, hematocrit 30.5, platelets 233,000. Sodium 129, potassium 4.5, chloride 98, bicarbonate 22, BUN 17, creatinine 1, glucose 147, calcium 8.6. ASSESSMENT AND PLAN: 1. Acute encephalopathy on presentation, likely this patient also has a baseline dementia, apparently her confusion started about 8 hours before coming to the hospital or so, like I said I believe this patient also has a cognitive impairment, we did an MRI also with the 2 CT scans of the head, CSF culture and everything has been negative. We will continue to monitor. We are replacing her B12 and folate, likely this patient will go to a rehab at the beginning of the week. 2. Stenotrophomonas pneumonia. Continue with same management. X-ray a few days ago showed chronic obstructive pulmonary disease. CT scan of the chest done 2 days ago showed mucous plugging, some chronic consolidations in both lung bases more significant on the left side. This has been seen also on previous CT scan. 3. Paroxysmal supraventricular tachycardia/atrial flutter/atrial fibrillation better controlled. Continue with same management. Cardiology on board. 4. Nutritional status. Today she is tolerating a little bit better her food. 5. Hyponatremia. Continue to monitor. 6. Physical deconditioning. Continue physical therapy. 7. Possible constipation. Continue MiraLAX. 8. B12 and folate deficiency. Continue to replace both. 9. History of bilateral small cell lung cancer followed by Hematology/Oncology Department. 10. History of nivolumab-induced acute colitis, this patient has been on prednisone. Will continue with same management. Probably will decrease the dose from 30 to 20, probably we can decrease the dose slowly. 11. History of chronic obstructive pulmonary disease, not in exacerbation at this moment. She is on home O2 mostly during the night. 12. Mild acute kidney injury resolved, this is her baseline. INCOMPLETE REPORT -- DICTATION ENDS HERE. cc: Matteo Webb MD
[2018-09-21] MEDS ORDERED: PREDNISONE PO SCH (16:00)
[2018-09-21] MEDS: THIAMINE 100 MG in NS 50 ML IV SCH (16:00)
[2018-09-21] MEDS: CRESTOR PO SCH (21:19)
[2018-09-22] MEDS: DUONEB (A & A) INH SCH ×3 (03:25→15:21)
[2018-09-22 07:51] LABS: CALCIUM 9.5 mg/dL (8.8-10.2); POTASSIUM 4.8 mmol/L (3.5-5.1)
[2018-09-22] MEDS: SPIRIVA INH SCH (08:02)
[2018-09-22] MEDS: BREO ELLIPTA 100/25 MCG INH INH SCH (08:02)
[2018-09-22] MEDS: MUCINEX PO SCH (10:07)
[2018-09-22] MEDS: CYANOCOBALAMIN IM SCH (10:07)
[2018-09-22] MEDS: FOLIC ACID PO SCH (10:07)
[2018-09-22] MEDS: KEPPRA PO SCH (10:07)
[2018-09-22] MEDS: ELIQUIS PO SCH (10:07)
[2018-09-22] MEDS: CARDIZEM CD PO SCH (10:07)
[2018-09-22] MEDS: LOPRESSOR PO SCH (10:07)
[2018-09-22] MEDS: SEPTRA DS PO SCH (10:07)
[2018-09-22] MEDS: ASPIRIN PO SCH (10:07)
[2018-09-22] MEDS: MIRALAX PO SCH (10:14)
[2018-09-22] MEDS: LIDODERM TOP SCH (10:14)
[2018-09-22] MEDS: TUMS PO SCH (10:14)
--- NOTE | 2018-09-22 14:48 | DISCHARGE SUMMARY ---
ADMISSION DATE: 09/11/2018 DISCHARGE DATE: 09/22/2018 DIAGNOSES: 1. Acute encephalopathy in the setting of baseline dementia. 2. Stenotrophomonas pneumonia. 3. Chronic obstructive pulmonary disease, on home O2, mostly during the night. 4. Paroxysmal supraventricular tachycardia/atrial flutter/atrial fibrillation, controlled on Cardizem CD and Lopressor. 5. Hyponatremia, improved. 6. Physical conditioning. Will continue working with physical therapy. 7. B12 and folate deficiency. 8. History of bilateral small cell lung cancer, followed by Dr. Fischer. 9. Acute kidney injury secondary to her home Lasix. 10. History of nivolumab-induced acute colitis, on daily prednisone. 11. Acute kidney injury, improved with a creatinine of 1 today. DIAGNOSTICS: 1. Chest x-ray 09/11/2018 revealed lungs. Hyperexpanded heart is not enlarged. Vessels are not distended. There are no infiltrates. No pleural effusions. No change in left-sided Port-A- Cath. 2. On 09/11/2018 CT of the head revealed chronic ischemic microvascular disease. No evidence of acute disease. 3. On 09/12/2018 brain MRI revealed no evidence of metastatic disease. 4. On 09/13/2018 CT of the head revealed no acute process. No change from prior of 09/11/2018. 5. On 09/17/2018 chest x-ray revealed COPD, stable chest. 6. On 09/19/[address] without contrast revealed mucous plugging and tree-in-bud consolidations on both lungs, greater on the left and right. Focal scarring at the medial right upper lobe. Healing fractures of the left 9th and 10th ribs. PROCEDURES: On 09/13/2018 lumbar puncture with negative culture, CSF. MICROBIOLOGY: 1. Blood cultures revealed no growth after 5 days. 2. CSF culture revealed no growth. Gram stain revealed no white blood cells, epithelial, or yeast seen. No bacteria seen. 3. Sputum culture revealed Stenotrophomonas maltophilia. HOSPITAL COURSE: Ms. Vargas presented to the hospital because of encephalopathy. She was found to be hyponatremic, hypochloremic, hypokalemia, and hypomagnesemia when acute kidney injury. She had been using Lasix at home for lower extremity edema. It was felt that this contributed. Lasix was held. She was given IV fluids. Sodiums have increased to 133. Potassium has been within normal limits, as is magnesium. She has been tolerating oral intake. We did replace B12 and folate. Once cultures returned, antibiotics were changed to Bactrim which has been continued and she will be discharged on. She did have some tachycardia. It appeared to be SVT with some atrial fibrillation in atrial flutter. Of note, she did have multifocal tachycardia on the past admissions. She was evaluated by Cardiology. Medications were adjusted and rate has been controlled on metoprolol and Cardizem. We continued her home O2 as well as DuoNeb. Today she is more awake and alert and oriented. She is able to answer questions. Her family members are at the bedside and do corroborate the answers to her questions. She is tolerating oral intake. She continues to be weak and thankfully today she is ready to be discharged to rehab. DISCHARGE VITAL SIGNS: Blood pressure is 152/55, with heart rate of 82, respirations 20, temperature is 98.6 degrees oral, with room air saturations 97 to 100%. DISCHARGE PHYSICAL EXAMINATION: Cardiovascular: Regular rate and rhythm. S1 and S2 appreciated. Calves are nontender bilaterally. Pulmonary: She does have some crepitus at the right base. Chest rises and falls symmetrically with respiration. Chest wall is nontender to palpation. Gastrointestinal: Abdomen is soft, nontender, nondistended. Bowel sounds in all 4 quadrants. Neurologic: She is awake, alert. She is oriented to person, to family members, and knows she is at the hospital. She does answer simple questions, although she answers slowly. DISCHARGE MEDICATIONS: 1. DuoNeb 4 times a day. 2. Alprazolam 0.5 mg 1 tablet t.i.d. p.r.n. anxiety. 3. Eliquis 5 mg p.o. q.12 hours. 4. Aspirin 81 mg p.o. daily. 5. Vitamin B12 1000 mcg p.o. daily. 6. Cardizem CD 300 mg p.o. daily. 7. Breo Ellipta 1 puff b.i.d. 8. Folic acid 1 mg p.o. b.i.d. 9. Mucinex 600 mg p.o. b.i.d. 10. Spiriva 18 mcg inhalation daily. 11. Lopressor 25 mg p.o. q.12 hours. 12. [place] 10/325 one t.i.d. p.r.n. pain. 13. MiraLAX 17 g p.o. daily. 14. Prednisone 20 mg p.o. 15. Septra DS 1 p.o. b.i.d. for 7 days. 16. Tums 500 mg p.o. t.i.d. DISPOSITION: She is being discharged and transferred to rehab in stable condition with family members present. TIME SPENT: This is a greater than 30 minute discharge. Dictated by JESSICA Plummer for David Rehman MD Addendum: Patient seen and examined by myself. Agree with JESSICA note. It reflects my assessment and plan. Patient is being discharged in stable condition. Patient going to rehab facility. cc: JESSICA Plummer MD [facility]
[2018-09-22 17:07] VITALS: BP 134/95
== END 2018-09-22 17:05 | DRG 640 ==
LOC: ED 13:41 → SUATTDRO 19:30 → ICU 19:30 → 4N 19:32 → 3S 09-15 15:24 → 3N 09-19 14:03
PROVIDERS: ATTEND Internal Medicine
CPT/HCPCS: 70450; 70553; 71010; 71020; 71045; 71046; 71250; 80048; 80053; 80061; 80101; 80301; 80307; 80324; 80345; 80346; 80353; 80358; 80361; 80365; 81001; 82570; 82607; 82728; 82746; 82945; 82948; 83540; 83550; 83605; 83721; 83735; 83930; 83935; 83992; 84157; 84300; 84443; 85025; 85027; 85610; 85730; 86592; 87040; 87070; 87077; 87186; 87205; 87449; 87498; 87529; 87798; 87899; 89050; 89220; 93005; 93010; 94640; 94760; 94761; 95816; 97110; 97162; 97530; 99285; 99291; A9270; A9579; G0431; G0434; G0479; G0480; J2185; J3370; J3411; J3420; J3475; J7030; J7050; J7506; J7512; XXXXX

== ENCOUNTER 2018-10-20 14:09 | Inpatient (IN) ==
[2018-10-20] MEDS ORDERED: ZOFRAN IV ONE (14:34)
[2018-10-20] MEDS ORDERED: FENTANYL IV ONE (14:34)
[2018-10-20] MEDS ORDERED: NS 1,000 ML IV ONE ×2 (14:34→16:57)
[2018-10-20] MEDS ORDERED: CARDIZEM IV ONE (14:34)
[2018-10-20] MEDS ORDERED: AZACTAM 1 GM in NS 50 ML IV ONE (14:39)
--- NOTE | 2018-10-20 14:42 | EKG Report ---
Test Performed on : 10/20/2018 2:30:33 PM Test Reason : afib Blood Pressure : / mmHG Vent. Rate : 131 BPM Atrial Rate : 357 BPM P-R Int : 000 ms QRS Dur : 084 ms QT Int : 306 ms P-R-T Axes : 000 047 073 degrees QTc Int : 451 ms Atrial fibrillation. with rapid ventricular response. Abnormal ECG When compared with ECG of 18-SEP-2018 06:48, Atrial fibrillation. has replaced Sinus rhythm. Vent. rate has increased BY 63 BPM Unconfirmed Result
--- NOTE | 2018-10-20 15:08 | Diag Imaging Result Doc PS360 ---
EXAM: CHEST-PORTABLE HISTORY: sob TECHNIQUE: Chest single view COMPARISON: 09/17/2018 FINDINGS: The lungs are well expanded. The heart is not enlarged. No change in the left subclavian portacatheter. The vessels are small. There are no infiltrates. No effusion identified. IMPRESSION: Negative exam. Electronically signed by Kannan Mccann 10/20/2018 3:05 PM
[2018-10-20 15:09] LABS: ALLEN TEST NO; BE -0.2 mmoll (-3.0-3.0); BLOOD TYPE ARTERIAL; HCO3-(ACT) 24.7 mmoll (20.0-26.0); METHB 0.8 % (0.0-1.5); O2(CT) 11.4 mL/dL (15.0-23.0); O2HB 90.3 % (95.0-99.0); PCO2(98.6) 34 mmHg (35-45); PO2(98.6) 62 mmHg (60-100); SAMPLE BLOOD; SAO2 92.5 % (95.0-100.0); THB 8.9 g/dL (11.5-17.4); pH(98.6) 7.45 (7.35-7.45)
[2018-10-20 15:10] LABS: MODALITY ROOM AIR
--- NOTE | 2018-10-20 16:44 | Diag Imaging Result Doc PS360 ---
EXAM: US GB < RUQ (LIMITED) INDICATION: ruq pain COMPARISON: None. FINDINGS: The gallbladder is distended. There is no shadowing gallstones, gallbladder wall thickening, or pericholecystic fluid. The common bile duct is mildly dilated measuring up to 8 mm. However, this may be normal for the patient's age. Sonographic Dunlap's sign was reported to be negative. The liver is grossly unremarkable. Portal venous flow is hepatopetal. The visualized pancreas is unremarkable. The aorta and IVC are grossly unremarkable. The right kidney is grossly unremarkable. IMPRESSION: Distended gallbladder with mildly prominent common bile duct. However, the diameter may be normal for the patient's age. Electronically signed by Hector Gonsalez 10/20/2018 4:42 PM
[2018-10-20 17:04] LABS: URINE SOURCE CATH
[2018-10-20 17:12] LABS: BILIRUBIN URINE NEGATIVE (NEGATIVE); BLOOD URINE NEGATIVE (NEGATIVE); COLOR YELLOW; GLUCOSE URINE NEGATIVE (NEGATIVE); KETONE URINE NEGATIVE (NEGATIVE); LEUKOCYTES URINE NEGATIVE (NEGATIVE); NITRITE URINE NEGATIVE (NEGATIVE); PROTEIN URINE TRACE mg/dL (NEGATIVE); SP GRAVITY URINE 1.013; TURBIDITY URINE CLEAR (CLEAR); UR EPITHELIAL CELLS <10 /HPF (<10); URINE BACTERIA NEGATIVE /HPF; URINE RBC <10 /HPF (<10); URINE WBC <10 /HPF (<10); UROBILINOGEN URINE 2 mg/dL (NORMAL)
[2018-10-20 17:31] LABS: INR 0.98; PROTIME 13.8 Seconds (11.0-16.0)
[2018-10-20 17:33] LABS: BASO# 0.01 X1000 (0.0-0.2); BASO% 0.2 % (0.0-0.8); EOS# 0.01 X1000 (0.0-0.7); EOS% 0.2 % (0.0-10.0); HEMATOCRIT 27.1 % (37.0-47.0); HEMOGLOBIN 8.5 g/dL (12.0-16.0); IMM GRAN# 0.02 X1000 (0.0-0.04); IMM GRAN% 0.3 % (0.0-0.5); LYMPH# 0.63 X1000 (1.2-3.4); LYMPH% 10.8 % (20.5-51.1); MCH 32.9 PG (27-31); MCHC 31.4 g/dL (33-37); MONO# 0.38 X1000 (0.11-0.59); MONO% 6.5 % (1.7-9.3); MPV 9.8 FL (7.4-10.4); NEUT# 4.79 X1000 (1.4-6.5); PLT 181 X1000 (130-400); RBC 2.58 XMIL (4.2-5.4); RDW 20.5 % (11.5-14.5); WBC 5.84 X1000 (4.8-10.8)
[2018-10-20 17:34] LABS: PTT 34.1 Seconds (22.3-41.8)
[2018-10-20 17:38] LABS: ALB/GLOB RATIO 1.9; CALCIUM 7.2 mg/dL (8.8-10.2); CREATININE 1.1 mg/dL (0.5-0.9); POTASSIUM 3.9 mmol/L (3.5-5.1); TOTAL BILIRUBIN 0.47 mg/dL (0.20-1.00); TOTAL PROTEIN 4.6 g/dL (6.3-8.3)
--- NOTE | 2018-10-20 18:44 | PROVIDER DOCUMENTATION ---
This chart was entered by Louise Gonsalez Scribe, acting as scribe for Prashanth Reis MD. HPI-Cardiac General - General Source: patient, family <Prashanth Reis - Last Filed: 10/20/18 18:43> <Ariana Estrada - Last Filed: 10/20/18 21:13> - General Chief Complaint: B/P Problems Stated Complaint: HYPOTENSIVE Time Seen by Provider: 10/20/18 14:24 Allergies/Adverse Reactions: Patient Allergies Allergy/AdvReac Type Severity Reaction Status Date / Time bacitracin Allergy RASH Verified 10/20/18 16:31 [From Neosporin ([id number])] clindamycin Allergy Unknown Verified 10/20/18 16:31 gabapentin [From Neurontin] Allergy Unknown Verified 10/20/18 19:53 moxifloxacin [From Avelox] Allergy SWELLING Verified 10/20/18 16:31 neomycin Allergy RASH Verified 10/20/18 16:31 [From Neosporin ([id number])] polymyxin B Allergy RASH Verified 10/20/18 16:31 [From Neosporin ([id number])] pregabalin [From Lyrica] Allergy Unknown Verified 10/20/18 19:53 fluticasone AdvReac Unknown Unknown Verified 10/20/18 16:31 levofloxacin [From Levaquin] AdvReac Unknown Verified 10/20/18 16:31 Penicillins AdvReac HIVES Verified 10/20/18 16:31 Home Medications: Home Medication List Medication Instructions Recorded Confirmed Last Taken Type Albuterol 2.5MG/Ipratrop 0.5MG 3 ml INH 4XDAY 08/02/17 09/11/18 12/23/17 History [Duoneb (A & A)] Mirtazapine 45 mg PO HS 08/02/17 09/11/18 12/23/17 20:00 History Rosuvastatin Calcium [Crestor] 5 mg PO HS 08/02/17 09/11/18 12/24/17 10:00 History Tiotropium [place] Inhaler 18 mcg IH DAILY 12/24/17 09/11/18 12/24/17 10:00 History [Spiriva] Aspirin 81 mg PO DAILY #30 chewtab 08/20/18 09/11/18 Unknown Rx Calcium Carbonate Chew [Tums] 500 mg PO TID@2100,0900,1500 #90 08/20/18 09/11/18 Unknown Rx tab.chew Diphenoxylate/Atropine [Lomotil] 1 ea PO TID PRN #15 tab 08/20/18 09/11/18 Unknown Rx Guaifenesin E.r. [Mucinex] 600 mg PO BID #20 tab 08/20/18 09/11/18 Unknown Rx Prednisone 60 mg PO DAILY #60 tab 08/20/18 09/11/18 Unknown Rx Fluticasone/Vilanterol [Breo 1 puff INH BID 09/11/18 09/11/18 Unknown History Ellipta 100-25 Mcg INH] Furosemide 1 tab PO DAILY PRN 09/11/18 09/11/18 Unknown History Hyoscyamine [Levsin] 1 tab SUBLINGUAL TID PRN 09/11/18 09/11/18 Unknown History Alprazolam 1 tab PO TID PRN PRN #90 tab 09/22/18 Unknown Rx Apixaban [Eliquis] 5 mg PO Q12H #60 tab 09/22/18 Unknown Rx Cyanocobalamin (Vitamin B-12) 1,000 mcg PO DAILY #60 cap 09/22/18 Unknown Rx [Vitamin B-12] Diltiazem C.d. [Cardizem Cd] 300 mg PO DAILY #60 cap 09/22/18 Unknown Rx Folic Acid 1 mg PO BID tab 09/22/18 Unknown Rx Hydrocodone/Acetaminophen 1 ea PO TID PRN 30 Days #90 tab 09/22/18 Unknown Rx [Hydrocodone-Acetamin 10-325 mg] Levetiracetam [Keppra] 750 mg PO BID #60 tab 09/22/18 Unknown Rx Metoprolol [Lopressor] 25 mg PO Q12HR #60 tab 09/22/18 Unknown Rx Polyethylene Glycol 3350 [Miralax] 17 gm PO DAILY powder, packet 09/22/18 Unknown Rx Sulfamethoxazole/Tmp D.s. [Septra 1 ea PO BID #14 tab 09/22/18 Unknown Rx Ds] - History of Present Illness-Cardiac Nature of Presenting Problem: 77 yof presents w/family to er w/cc diarrhea. pt sts she has had diarrhea "all the time." unsure when last reg BM was. pt has hx of end stage lung cancer. pt has o2 at home but has not been using it. family sts pt's o2 has been better recently. pt was in er and on antibiotics 3-4 weeks ago and just got out of rehab on saturday. pt denies blood in stool, no v/n, no fever. pt followed by Dr. gutierrez and Dr. Fischer. pt arrived via ems, o2 sat was 80. (Prashanth Reis) Review of Systems - Adult - REVIEW OF SYSTEMS - ADULT Constitutional: reports: no symptoms reported. denies: chills, fever, fatique Eyes: reports: no symptoms reported Ears, Nose, Mouth & Throat: reports: no symptoms reported Cardiovascular: reports: no symptoms reported. denies: chest pain, edema, palpitations Respiratory: reports: no symptoms reported Gastrointestinal: reports: see HPI, diarrhea. denies: nausea, rectal bleeding, vomiting Genitourinary: reports: no symptoms reported Musculoskeletal: reports: no symptoms reported Integumentary: reports: no symptoms reported Neurological: reports: no symptoms reported Psychiatric: reports: no symptoms reported Endocrine: reports: no symptoms reported Hematologic/Lymphatic: reports: no symptoms reported Allergic/Immunologic: reports: no symptoms reported All Other Systems: Reviewed and Negative <Prashanth Reis - Last Filed: 10/20/18 18:43> Past History - Adult - PAST MEDICAL HISTORY-ADULT Review of Records: reports: Old Records Reviewed, Nursing Assessment Review, Medications Reviewed, Social history reviewed & non-contributory. Major Childhood Illnesses: reports: denies history Cardiovascular: reports: HTN, hyperlipidemia Respiratory: reports: COPD, cancer (Lung-SMALL CELL) Gastrointestinal: reports: denies history Obstetrical/Gynecological: reports: denies history Genitourinary: reports: kidney disease Musculoskeletal: reports: denies history Neurological: reports: TIA Endocrine/Immune: reports: denies history Other Conditions: reports: denies history - PRIOR SURGERIES/PROCEDURES Surgical/Procedure History: reports: hysterectomy, other (port) - IMMUNIZATION STATUS Childhood Immunizations: See Nurse Assessment Flu Vaccine: See Nurse Assessment - FAMILY HISTORY Family History: reviewed, not pertinent - SOCIAL HISTORY Smoking: other (former smoker) Substance Use: none/never <Prashanth Reis - Last Filed: 10/20/18 18:43> Physical Exam-General - PHYSICAL EXAM-ADULT Initial Vital Signs Reviewed: Yes - CONSTITUTIONAL General Appearance: alert, mild distress. negative: lethargic, slow to respond, obtunded - EYES Eyes: PERRL/EOMI, pink conjunctivae - HEAD, EARS, NOSE, MOUTH & THROAT HENMT: normocephalic/atraumatic, moist mucous membranes, normal ENT inspection - NECK Neck: non-tender, full range of motion, supple, normal inspection - RESPIRATORY Respiratory: chest non-tender, normal breath sounds, no pleuratic chest pain, no respiratory distress, no accessory muscle use, rhonchi (scattered bilat), wheezing (expiratory bilat). negative: lungs clear, respiratory distress, decreased breath sounds - CARDIOVASCULAR Cardiovascular: normal peripheral pulses, no edema, no gallop, no JVD, no murmur , tachycardia, irregularly irregular. negative: regular rate, rhythm, diastolic murmur, systolic murmur - GASTROINTESTINAL (ABDOMEN) Abdominal Exam: normal bowel sounds, soft, no organomegaly, no pulsatile mass, guarding, tenderness (ruq to palp), Dunlap's sign (+). negative: non tender, distended, rigid - LYMPHATIC Lymphatic: no adenopathy - MUSCULOSKELETAL Back Exam: normal inspection, no CVA tenderness Extremity: normal range of motion, non-tender, normal inspection Peripheral Pulses: radial (R): 2+, radial (L): 2+ - SKIN Integumentary: normal color, normal turgor, warm/dry - NEUROLOGIC Neurologic: grossly normal, no motor/sensory deficits - PSYCHIATRIC Psych/Mental Status: normal mood/affect, normal thought content, normal thought process, oriented x 3 <Prashanth Reis - Last Filed: 10/20/18 18:43> Progress - PLAN OF CARE/RESULTS Result Diagrams: 10/20/18 15:08 10/20/18 15:08 - REASSESSMENT Reassessment #1 Time Reassessed: 18:43 Status: improving (rate controlled with cardizem, BP improved with IVF bolus. Patient meets criteria for sepsis, but lactate and WBC count are OK. Awaiting CT scan to r/o colitis/diverticulitis/ischemic bowel.) - EKG 1 Time of EKG reading by physician:: 14:41 EKG Read and Signed by:: Prashanth Reis EKG Interpretation (*Must complete 3 of following elements*): Abnormal Rate: 131 Rhythm: afib w/rvr [place]: normal QRS: normal ST Wave: non-specific ST changes (nonspecific st wave abnormality) - CHANGE OF SHIFT REPORT (ED Provider) 1 Report Given and Care Transferred to:: [facility] Time of Transfer: 19:00 Items Pending: CT/MRI Results, Physician Consult/Arrival <Prashanth Reis - Last Filed: 10/20/18 18:43> - PLAN OF CARE/RESULTS Result Diagrams: 10/20/18 15:08 10/20/18 15:08 - REASSESSMENT Reassessment #2 Time Reassessed: 19:15 Status: other (care resumed from Dr Reis. pt again low BP and HR in 100-110 ra nge. d/w RN, will start Cardizem drip and 500 cc bolus and re-evaluate. CT pending.) Reassessment #3 Time Reassessed: 20:00 Status: improving Reassessment Comment: D/W DR PAIZ, ADMIT, CT PENDING - CT/MRI 1 CT Study: Abdomen Impression: Abnormal ([facility] - [address], [address], [place] [address] [facility] - [address] [place] [address] Department of Imaging Patient: QI LOPEZ Date: 10/20/18#: [id number] : 1940ADM Status: REG [facility]#: [id number] Age/Sex: 77/FRoom/Bed: Loc: ED Ordering Physician: Prashanth Reis MD Family Physician: None,PCP Reason for Procedure: right sided pain Signed EXAM: CT ABD/PELVIS W/IV CONT ONLY INDICATION: right sided pain TECHNIQUE: This exam was performed using automated exposure control, adjustment of mA or kV according to patient size, and/or use of iterative reconstruction technique. COMPARISON: 08/14/2018 FINDINGS: There is mild bibasilar bronchiectasis and patchy mild consolidation at both lung bases, which includes a few small tree-in-bud opacities. It is actually similar to the previous study and probably represents a chronic infectious process such as FUAD. There is questionable very minimal hepatic steatosis. The liver is unremarkable, otherwise. The gallbladder, spleen, pancreas, adrenal glands, and kidneys are unremarkable. The urinary bladder is very distended. It is possible this is due to mild urinary retention. There is no urinary bladder wall thickening identified. It is unremarkable, otherwise. There has been a prior hysterectomy. There is uncomplicated sigmoid colonic diverticulosis. The appendix is normal. There are several loops of mildly distended small bowel containing mainly fluid. They are nonspecific. Consider ileus related to mild enteritis. Low-grade partial bowel obstruction is possible but is less likely. No clear transition point is identified. The remainder of the GI tract is essentially unremarkable. No focal inflammatory changes, free abdominal gas, or free fluid is identified. IMPRESSION: 1.Patchy consolidation and mild bronchiectasis at both lung bases that is actually similar to the previous study. Please see above discussion. 2.Nonspecific fluid- filled mildly distended loops of small bowel throughout the abdomen as detailed above. 3.Other incidental/nonacute findings detailed above. Electronically signed by Hector Gonsalez 10/20/2018 8:48 PM 10/20/182047 Interpreting Physician: Hector Gonsalez MD Dictated Date/Time: 10/20/182038 cc: Prashanth Reis MD; None,PCP) - CONSULTS/PCP/HOSPITALIST Notification #1 *Consult/PCP/Hospitalist*: D/W DR PAIZ Time Discussed: 20:35 Consult Disposition: Admit <Ariana Estrada - Last Filed: 10/20/18 21:13> - PLAN OF CARE/RESULTS Progress/Plan/Lab Results: Vital Signs - 8 hr 10/20/18 14:13 10/20/18 14:14 10/20/18 14:15 Temperature 97.7 F Pulse Rate 135 H Respiratory Rate 14 Blood Pressure 124/81 147/124 124/81 O2 Sat by Pulse Oximetry 90 L 80 L 78 L 10/20/18 14:17 10/20/18 14:30 10/20/18 14:36 Temperature Pulse Rate 142 H 117 H 120 H Respiratory Rate 12 20 26 H Blood Pressure 74/52 O2 Sat by Pulse Oximetry 79 L 92 L 100 10/20/18 14:38 10/20/18 14:46 10/20/18 15:00 Temperature Pulse Rate 128 H 118 H 134 H Respiratory Rate 20 17 24 Blood Pressure 74/52 O2 Sat by Pulse Oximetry 100 91 L 91 L 10/20/18 15:07 10/20/18 15:09 10/20/18 15:15 Temperature Pulse Rate 143 H 107 H 114 H Respiratory Rate 14 8 L 14 Blood Pressure 85/41 70/51 O2 Sat by Pulse Oximetry 98 99 79 L 10/20/18 15:18 10/20/18 15:22 10/20/18 15:25 Temperature Pulse Rate 50 L 67 70 Respiratory Rate 8 L 7 L 19 Blood Pressure 90/70 87/38 70/42 O2 Sat by Pulse Oximetry 90 L 97 87 L 10/20/18 15:28 10/20/18 15:30 10/20/18 15:33 Temperature Pulse Rate 68 70 82 Respiratory Rate 29 H 23 19 Blood Pressure 89/41 95/44 O2 Sat by Pulse Oximetry 91 L 88 L 80 L 10/20/18 15:38 10/20/18 15:43 10/20/18 15:45 Temperature Pulse Rate 95 H 76 80 Respiratory Rate 23 21 18 Blood Pressure 76/40 100/45 O2 Sat by Pulse Oximetry 92 L 89 L 88 L 10/20/18 15:48 10/20/18 15:51 10/20/18 15:53 Temperature Pulse Rate 77 78 83 Respiratory Rate 14 18 Blood Pressure 102/45 92/43 94/44 O2 Sat by Pulse Oximetry 93 L 94 L 91 L 10/20/18 15:58 10/20/18 16:00 10/20/18 16:03 Temperature Pulse Rate 81 96 H 89 Respiratory Rate 17 21 23 Blood Pressure 96/34 70/39 O2 Sat by Pulse Oximetry 93 L 98 99 10/20/18 16:08 10/20/18 16:13 10/20/18 16:15 Temperature Pulse Rate 83 92 H 78 Respiratory Rate 29 H 18 16 Blood Pressure 100/46 102/40 O2 Sat by Pulse Oximetry 99 99 95 07/08/19 16:18 10/20/18 16:25 10/20/18 16:28 Temperature Pulse Rate 88 91 H 82 Respiratory Rate 18 20 18 Blood Pressure 95/49 94/53 98/48 O2 Sat by Pulse Oximetry 99 98 99 10/20/18 16:30 10/20/18 16:33 10/20/18 16:38 Temperature Pulse Rate 86 90 87 Respiratory Rate 20 23 20 Blood Pressure 99/48 101/58 O2 Sat by Pulse Oximetry 98 89 L 91 L 10/20/18 16:43 10/20/18 16:45 10/20/18 16:48 Temperature Pulse Rate 107 H 94 H 102 H Respiratory Rate 23 16 15 Blood Pressure 88/59 99/51 O2 Sat by Pulse Oximetry 92 L 94 L 97 10/20/18 16:53 10/20/18 16:58 10/20/18 17:00 Temperature Pulse Rate 108 H 98 H 99 H Respiratory Rate 17 9 L 11 L Blood Pressure 110/38 95/53 O2 Sat by Pulse Oximetry 100 100 98 10/20/18 17:03 10/20/18 17:09 10/20/18 17:15 Temperature Pulse Rate 90 95 H 110 H Respiratory Rate 20 18 22 Blood Pressure 96/39 96/36 109/51 O2 Sat by Pulse Oximetry 99 86 L 94 L 10/20/18 17:16 10/20/18 17:18 10/20/18 17:30 Temperature Pulse Rate 128 H 100 H 96 H Respiratory Rate 14 15 14 Blood Pressure 97/52 O2 Sat by Pulse Oximetry 88 L 90 L 99 10/20/18 17:33 10/20/18 17:38 10/20/18 17:43 Temperature Pulse Rate 91 H 94 H 94 H Respiratory Rate 8 L 0 L 2 L Blood Pressure 78/57 94/45 92/59 O2 Sat by Pulse Oximetry 80 L 98 95 10/20/18 17:45 10/20/18 17:48 10/20/18 17:53 Temperature Pulse Rate 83 101 H 87 Respiratory Rate 7 L 7 L 20 Blood Pressure 106/39 103/73 O2 Sat by Pulse Oximetry 78 L 100 100 10/20/18 17:58 10/20/18 18:00 10/20/18 18:03 Temperature Pulse Rate 97 H 98 H 91 H Respiratory Rate 18 17 16 Blood Pressure 99/52 80/50 O2 Sat by Pulse Oximetry 100 100 100 10/20/18 18:08 10/20/18 18:13 10/20/18 18:15 Temperature Pulse Rate 109 H 91 H 92 H Respiratory Rate 6 L 12 23 Blood Pressure 88/48 101/43 O2 Sat by Pulse Oximetry 100 100 100 10/20/18 18:18 10/20/18 18:23 10/20/18 18:28 Temperature Pulse Rate 93 H 107 H 84 Respiratory Rate 26 H 21 6 L Blood Pressure 88/43 80/51 90/31 O2 Sat by Pulse Oximetry 100 97 100 10/20/18 18:30 10/20/18 18:33 10/20/18 18:38 Temperature Pulse Rate 92 H 105 H 88 Respiratory Rate 0 L 8 L 18 Blood Pressure 83/38 81/47 O2 Sat by Pulse Oximetry 100 100 93 L 10/20/18 18:43 10/20/18 18:45 10/20/18 18:47 Temperature Pulse Rate 97 H 115 H 109 H Respiratory Rate 21 18 23 Blood Pressure 92/51 90/40 O2 Sat by Pulse Oximetry 96 92 L 90 L 10/20/18 18:49 10/20/18 18:55 10/20/18 18:58 Temperature Pulse Rate 96 H 110 H 106 H Respiratory Rate 17 22 22 Blood Pressure 91/38 84/35 114/52 O2 Sat by Pulse Oximetry 96 88 L 88 L 10/20/18 19:00 10/20/18 19:09 Temperature Pulse Rate 107 H 97 H Respiratory Rate 21 20 Blood Pressure 80/54 O2 Sat by Pulse Oximetry 97 100 Laboratory Results - last 24 hr 10/20/18 10/20/18 10/20/18 14:50 14:50 14:50 WBC RBC Hgb Hct MCV MCH MCHC RDW Std Deviation Plt Count MPV Immature Gran % (Auto) Neut % (Auto) Lymph % (Auto) [place] % (Auto) Eos % (Auto) Baso % (Auto) Immature Gran # (Auto) Neut # (Auto) Lymph # (Auto) [place] # (Auto) Eos # (Auto) Baso # (Auto) PT INR PTT (Actin FS) Specimen Type Sample Site pH pCO2 pO2 HCO3 Base Excess Oxyhemoglobin ABG O2 Sat (Calculated) ABG O2 Saturation ABG Carboxyhemoglobin ABG Methemoglobin [place] Test Total Hemoglobin Lactate Blood Gas Modality Sodium Potassium Chloride Carbon Dioxide Anion Gap BUN Creatinine Estimated GFR/1.73 m2 BUN/Creatinine Ratio Glucose Calculated Osmolality Calcium Magnesium 1.9 Total Bilirubin AST ALT Alkaline Phosphatase Creatine Kinase Troponin T [id number] Pept 1532 H Total Protein Albumin Globulin Albumin/Globulin Ratio Plasma Lactate 1.9 Urine Source Urine Color Urine Turbidity Urine pH Ur Specific [place] Urine Protein Ur Glucose (Stick) Ur Ketones (Stick) Urine Blood Urine Nitrite Urine Bilirubin Urobilinogen Dipstick Urine Leukocytes Urine WBC (Auto) Urine RBC (Auto) U Epithel Cells (Auto) Urine Bacteria (Auto) 10/20/18 10/20/18 10/20/18 14:56 15:08 15:08 WBC 5.84 RBC 2.58 L Hgb 8.5 L Hct 27.1 L MCV 105.0 H MCH 32.9 H MCHC 31.4 L RDW Std Deviation 20.5 H Plt Count 181 MPV 9.8 Immature Gran % (Auto) 0.3 Neut % (Auto) 82.0 H Lymph % (Auto) 10.8 L [place] % (Auto) 6.5 Eos % (Auto) 0.2 Baso % (Auto) 0.2 Immature Gran # (Auto) 0.02 Neut # (Auto) 4.79 Lymph # (Auto) 0.63 L [place] # (Auto) 0.38 Eos # (Auto) 0.01 Baso # (Auto) 0.01 PT INR PTT (Actin FS) Specimen Type ARTERIAL Sample Site L BRACHIAL pH 7.45 pCO2 34 L pO2 62 HCO3 24.7 Base Excess -0.2 Oxyhemoglobin 90.3 L ABG O2 Sat (Calculated) 11.4 L ABG O2 Saturation 92.5 L ABG Carboxyhemoglobin 1.70 ABG Methemoglobin 0.8 [place] Test NO Total Hemoglobin 8.9 L Lactate 1.30 Blood Gas Modality ROOM AIR Sodium 135 L Potassium 3.9 Chloride 97 L Carbon Dioxide 23 L Anion Gap 15 BUN 20 Creatinine 1.1 H Estimated GFR/1.73 m2 48 BUN/Creatinine Ratio 18 Glucose 203 H Calculated Osmolality 279 Calcium 7.2 L Magnesium Total Bilirubin 0.47 AST 21 ALT 18 Alkaline Phosphatase 60 Creatine Kinase 38 Troponin T [id number]-[id number] Pept Total Protein 4.6 L Albumin 3.0 L Globulin 1.6 Albumin/Globulin Ratio 1.9 Plasma Lactate Urine Source Urine Color Urine Turbidity Urine pH Ur Specific [place] Urine Protein Ur Glucose (Stick) Ur Ketones (Stick) Urine Blood Urine Nitrite Urine Bilirubin Urobilinogen Dipstick Urine Leukocytes Urine WBC (Auto) Urine RBC (Auto) U Epithel Cells (Auto) Urine Bacteria (Auto) 10/20/18 10/20/18 10/20/18 15:08 15:08 15:34 WBC RBC Hgb Hct MCV MCH MCHC RDW Std Deviation Plt Count MPV Immature Gran % (Auto) Neut % (Auto) Lymph % (Auto) [place] % (Auto) Eos % (Auto) Baso % (Auto) Immature Gran # (Auto) Neut # (Auto) Lymph # (Auto) [place] # (Auto) Eos # (Auto) Baso # (Auto) PT 13.8 INR 0.98 PTT (Actin FS) 34.1 Specimen Type Sample Site pH pCO2 pO2 HCO3 Base Excess Oxyhemoglobin ABG O2 Sat (Calculated) ABG O2 Saturation ABG Carboxyhemoglobin ABG Methemoglobin [place] Test Total Hemoglobin Lactate Blood Gas Modality Sodium Potassium Chloride Carbon Dioxide Anion Gap BUN Creatinine Estimated GFR/1.73 m2 BUN/Creatinine Ratio Glucose Calculated Osmolality Calcium Magnesium Total Bilirubin AST ALT Alkaline Phosphatase Creatine Kinase Troponin T 0.018 [id number]-Jwhbftvtihn Pept Total Protein Albumin Globulin Albumin/Globulin Ratio Plasma Lactate Urine Source CATH Urine Color YELLOW Urine Turbidity CLEAR Urine pH 7.0 Ur Specific [place] 1.013 Urine Protein TRACE A Ur Glucose (Stick) NEGATIVE Ur Ketones (Stick) NEGATIVE Urine Blood NEGATIVE Urine Nitrite NEGATIVE Urine Bilirubin NEGATIVE Urobilinogen Dipstick 2 A Urine Leukocytes NEGATIVE Urine WBC (Auto) <10 Urine RBC (Auto) <10 U Epithel Cells (Auto) <10 Urine Bacteria (Auto) NEGATIVE 10/20/18 19:16 WBC RBC Hgb Hct MCV MCH MCHC RDW Std Deviation Plt Count MPV Immature Gran % (Auto) Neut % (Auto) Lymph % (Auto) [place] % (Auto) Eos % (Auto) Baso % (Auto) Immature Gran # (Auto) Neut # (Auto) Lymph # (Auto) [place] # (Auto) Eos # (Auto) Baso # (Auto) PT INR PTT (Actin FS) Specimen Type Sample Site pH pCO2 pO2 HCO3 Base Excess Oxyhemoglobin ABG O2 Sat (Calculated) ABG O2 Saturation ABG Carboxyhemoglobin ABG Methemoglobin [place] Test Total Hemoglobin Lactate Blood Gas Modality Sodium Potassium Chloride Carbon Dioxide Anion Gap BUN Creatinine Estimated GFR/1.73 m2 BUN/Creatinine Ratio Glucose Calculated Osmolality Calcium Magnesium Total Bilirubin AST ALT Alkaline Phosphatase Creatine Kinase Troponin T [id number]-N-Ekbakvftxfz Pept Total Protein Albumin Globulin Albumin/Globulin Ratio Plasma Lactate 0.8 Urine Source Urine Color Urine Turbidity Urine pH Ur Specific [place] Urine Protein Ur Glucose (Stick) Ur Ketones (Stick) Urine Blood Urine Nitrite Urine Bilirubin Urobilinogen Dipstick Urine Leukocytes Urine WBC (Auto) Urine RBC (Auto) U Epithel Cells (Auto) Urine Bacteria (Auto) Orders Category Date Time Status Cardiac Monitoring DIRECTED Care 10/20/18 14:39 Active IV Insertion ORDERED Care 10/20/18 14:39 Active Notify MD of + Sepsis Screen NOW Care 10/20/18 14:39 Active Notify Physician As Ordered Care 10/20/18 14:39 Active Nursing- Obtain EKG once Care 10/20/18 14:32 Active Saline Loc NOW Care 10/20/18 14:32 Active CHEST-PORTABLE [RAD] Stat Exams 10/20/18 14:[address] ABD/PELVIS W/IV CONT ONLY [CT] Stat Exams 10/20/18 17:45 Completed US GB < RUQ (LIMITED) [US] Stat Exams 10/20/18 14:34 Completed ABG [RESP] Routine Lab 10/20/18 14:56 Completed BLOOD CULTURE [BLDCUL] Stat Lab 10/20/18 14:50 Results C DIFF TOXIN [STOOL] Stat Lab 10/20/18 14:32 Uncollected CBC WITH DIFF [HEME] Stat Lab 10/20/18 15:08 Completed CK PROFILE [SP CHEM] Stat Lab 10/20/18 15:08 Completed CMP [COMPREHENSIVE METABOLIC PANEL] [CHEM] Stat Lab 10/20/18 15:08 Completed LACTATE, PLASMA [CHEM] Lab 10/20/18 19:16 Completed LACTATE, PLASMA [CHEM] Lab 10/20/18 20:45 Uncollected LACTATE, PLASMA [CHEM] Q3H Lab 10/20/18 14:50 Completed MAGNESIUM [CHEM] Stat Lab 10/20/18 14:50 Completed OCCULT BLOOD SCREENING [STOOL] Stat Lab 10/20/18 14:33 Uncollected PRO B-NATRIURETIC PEPTIDE Stat Lab 10/20/18 14:50 Completed PT [PROTIME WITH INR] [COAG] Stat Lab 10/20/18 15:08 Completed PTT [COAG] Stat Lab 10/20/18 15:08 Completed STOOL CULTURE [RM] Stat Lab 10/20/18 14:33 Uncollected TROPONIN T Stat Lab 10/20/18 15:08 Completed UA NIMS W/REFLEX CULT [URINALYSIS] Stat Lab 10/20/18 15:34 Completed 0.9% Sodium Chloride Inj [Ns] 1,000 ml Med 10/20/18 14:34 Discontinued IV 999 mls/hr 0.9% Sodium Chloride Inj [Ns] 1,000 ml Med 10/20/18 16:57 Discontinued IV 999 mls/hr 0.9% Sodium Chloride Inj [Ns] 100 ml Med 10/20/18 20:00 Active Diltiazem [Cardizem] 125 mg IV As Directed mls/hr 0.9% Sodium Chloride Inj [Ns] 500 ml Med 10/20/18 19:16 Discontinued IV 999 mls/hr Aztreonam [Azactam] 1 gm Med 10/20/18 14:39 Discontinued 0.9% Sodium Chloride Inj [Ns] 50 ml IV NOW Diltiazem [Cardizem] Med 10/20/18 14:34 Discontinued 20 mg IV NOW ONE Fentanyl Med 10/20/18 14:34 Discontinued 50 microgm IV NOW ONE Ondansetron [Zofran] Med 10/20/18 14:34 Discontinued 4 mg IV NOW ONE Oxygen Device Stat Oth 10/20/18 14:39 Completed EKG [EKG] Stat Ther 10/20/18 14:32 Draft Departure - Critical Care Note This patient required my direct & personal management of CC.: Yes Total Time (mins): 40 Critical Care Statement: This patient required my direct personal management to treat or rule out processes, the absence of which, could potentiallly result in sudden, clinically significant life or limb threatening deterioration. <Prashanth Reis - Last Filed: 10/20/18 18:43> - Departure Date of Disposition Decision: 10/20/18 Time of Disposition Decision: 20:35 Certified Medical Emergency: Emergent <Ariana Estrada - Last Filed: 10/20/18 21:13> - Departure DIAGNOSIS: Atrial fibrillation with RVR, Hypotension, Diarrhea, Sepsis, Enteritis, Ileus Disposition: ADMITTED INPATIENT 09 Condition: Stable Referrals and Follow-Ups: None,PCP [Primary Care Provider] - Attestation - Physician/ JOE Attestation Patient care was provided by Advanced Practice Provider:: No The physician spent face to face time with patient:: Yes Advanced Practice Provider documentation review:: Supervising physician onsite and consulted in the evaluation and care of this patient. The physician did have a face to face encounter with the patient. <Prashanth Reis - Last Filed: 10/20/18 18:43> This chart was documented by the indicated scribe, (Louise Gonsalez, Brianna) and accurately reflects the services I performed and decisions made by me, Prashanth Reis MD, as attested by the provider's signature.
[2018-10-20] MEDS ORDERED: NS 500 ML IV ONE (19:16)
[2018-10-20] MEDS: CARDIZEM 125 MG in NS 100 ML IV SCH (19:41)
--- NOTE | 2018-10-20 20:50 | Diag Imaging Result Doc PS360 ---
EXAM: CT ABD/PELVIS W/IV CONT ONLY INDICATION: right sided pain TECHNIQUE: This exam was performed using automated exposure control, adjustment of mA or kV according to patient size, and/or use of iterative reconstruction technique. COMPARISON: 08/14/2018 FINDINGS: There is mild bibasilar bronchiectasis and patchy mild consolidation at both lung bases, which includes a few small tree-in-bud opacities. It is actually similar to the previous study and probably represents a chronic infectious process such as FUAD. There is questionable very minimal hepatic steatosis. The liver is unremarkable, otherwise. The gallbladder, spleen, pancreas, adrenal glands, and kidneys are unremarkable. The urinary bladder is very distended. It is possible this is due to mild urinary retention. There is no urinary bladder wall thickening identified. It is unremarkable, otherwise. There has been a prior hysterectomy. There is uncomplicated sigmoid colonic diverticulosis. The appendix is normal. There are several loops of mildly distended small bowel containing mainly fluid. They are nonspecific. Consider ileus related to mild enteritis. Low-grade partial bowel obstruction is possible but is less likely. No clear transition point is identified. The remainder of the GI tract is essentially unremarkable. No focal inflammatory changes, free abdominal gas, or free fluid is identified. IMPRESSION: 1.Patchy consolidation and mild bronchiectasis at both lung bases that is actually similar to the previous study. Please see above discussion. 2.Nonspecific fluid-filled mildly distended loops of small bowel throughout the abdomen as detailed above. 3.Other incidental/nonacute findings detailed above. Electronically signed by Hector Gonsalez 10/20/2018 8:48 PM
--- NOTE | 2018-10-20 22:13 | HISTORY AND PHYSICAL ---
PRIMARY CARE PHYSICIAN: Dr. Knox. CHIEF COMPLAINT: Dizziness and diarrhea for several days. HISTORY OF PRESENTING ILLNESS: A 77-year-old elderly female with a history of COPD, lung cancer, hypertension, atrial fibrillation who just got out rehab about a week ago or so. Presented to the emergency department with complaint of dizziness, diarrhea and heart racing. She was evaluated in the emergency department. She was found to be in atrial fibrillation with rapid ventricular response. She was also hypotensive. She was given IV fluid boluses and started on Cardizem drip and she will require admission for further management. At the time of my examination, the patient denied any headache, fever, chills, chest pain, hemoptysis, melena, but complained of diarrhea, dizziness and not feeling well. The patient is a poor historian and most of the history is obtained from family members and previous ER records. PAST MEDICAL HISTORY: Includes COPD, lung cancer, hypertension, atrial fibrillation. PAST SURGICAL HISTORY: Hysterectomy, cataract surgery and she has a Mediport. ALLERGIES: To Levaquin, penicillin, Avelox, aspirin, clindamycin, and Neosporin. CURRENT MEDICATIONS: Include albuterol nebs, Xanax 0.5 mg p.o. t.i.d., Eliquis 5 mg p.o. q.12 hours, aspirin 81 mg p.o. daily, diltiazem 300 mg p.o. daily, folic acid 1 mg p.o. b.i.d., furosemide 20 mg p.o. daily, Keppra 750 mg p.o. b.i.d., metoprolol 25 mg p.o. q.12 hours, rosuvastatin 5 mg p.o. at bedtime. SOCIAL HISTORY: She is a former smoker. No history of alcohol or illicit drug use. FAMILY HISTORY: Positive for coronary disease in father. REVIEW OF SYSTEMS: Fourteen point review of system is as in HPI. Other systems negative. PHYSICAL EXAMINATION: GENERAL: Cooperative, friendly elderly female. She is resting comfortably now. VITAL SIGNS: Temperature 97.7 degrees, pulse 135, respiration 14 and blood pressure 124/81. HEENT: Atraumatic normocephalic. Extraocular movements intact. PERRLA. NECK: No masses. CHEST: Rhonchi. CARDIOVASCULAR: Irregular. ABDOMEN: Soft. Positive bowel sounds. EXTREMITIES: No edema. NEUROLOGIC: She is awake, alert, oriented x2. : No bladder distention. SKIN: Warm. LABORATORIES AND STUDIES: WBCs 5.84, hemoglobin 8.5, hematocrit 27.1, platelets 181,000. Sodium 135, potassium 3.9, chloride 97, CO2 is 23, BUN is 20, creatinine is 1.1, glucose is 203. Troponin 0.018. Abdominal CT shows patchy consolidation on both lung bases that is similar to previous study. Chest x-ray is negative. ASSESSMENT: This is a 77-year-old female with a history of chronic obstructive pulmonary disease, lung cancer, hypertension, atrial fibrillation who had presented to the emergency department with complaint of dizziness and diarrhea for several days. She was evaluated in the emergency department. She was found to be in atrial fibrillation with rapid ventricular response. She was started on IV Cardizem and also given fluid boluses and she will require admission for further management. 1. Atrial fibrillation with rapid ventricular response. 2. Hypotension. She has improved. 3. Diarrhea. 4. Chronic obstructive pulmonary disease. 5. Lung cancer. 6. Anemia unspecified. PLAN: 1. We will admit patient to [facility]. 2. We will continue with Cardizem drip if rate is still elevated. 3. We will consult Cardiology. 4. We will monitor blood pressure. Continue with IV fluids. 5. We will check stool studies. 6. We will continue with DuoNebs. 7. We will consult her oncologist for lung cancer. 8. We will do iron studies. 9. The patient is on Eliquis. That will suffice for deep vein thrombosis prophylaxis. 10. We will continue to follow and reassess. Make further recommendation based on patient's clinical course. cc: Agapito Jmi MD
[2018-10-21] MEDS ORDERED: DUONEB (A & A) INH PRN (01:40)
[2018-10-21] MEDS ORDERED: ZOFRAN IV PRN (01:40)
[2018-10-21 05:50] LABS: TSH 1.95 uIUmL (0.27-4.20)
[2018-10-21 05:52] LABS: AGAP 11; BUN 14 mg/dL (8-22); CALCIUM 7.6 mg/dL (8.8-10.2); CHLORIDE 102 mmol/L (98-107); COSMO 271; CREATININE 0.8 mg/dL (0.5-0.9); ESTIMATED GFR > 60; GLUCOSE 79 mg/dL (70-104); IRON SATURATION 6 %; POTASSIUM 3.4 mmol/L (3.5-5.1); SODIUM 136 mmol/L (136-145); TCO2 23 mmol/L (25-35); TIBC 217 ug/dL; TOTAL IRON 14 ug/dL (49-151); UNBOUND IRON 203 ug/dL (112-346)
[2018-10-21 06:29] LABS: BASO# 0.01 X1000 (0.0-0.2); BASO% 0.2 % (0.0-0.8); EOS# 0.05 X1000 (0.0-0.7); EOS% 1.2 % (0.0-10.0); HEMATOCRIT 27.5 % (37.0-47.0); HEMOGLOBIN 8.7 g/dL (12.0-16.0); IMM GRAN# 0.02 X1000 (0.0-0.04); IMM GRAN% 0.5 % (0.0-0.5); LYMPH# 0.55 X1000 (1.2-3.4); LYMPH% 13.6 % (20.5-51.1); MCH 33.1 PG (27-31); MCHC 31.6 g/dL (33-37); MCV 104.6 FL (81-99); MONO# 0.22 X1000 (0.11-0.59); MONO% 5.4 % (1.7-9.3); MPV 9.2 FL (7.4-10.4); NEUT% 79.1 % (42.2-75.2); PLT 175 X1000 (130-400); RBC 2.63 XMIL (4.2-5.4); WBC 4.05 X1000 (4.8-10.8)
--- NOTE | 2018-10-21 07:21 | EKG Report ---
Test Performed on : 10/21/2018 00:48:08 AM Test Reason : ED. NO EKG ORDER FOR MUSE Blood Pressure : / mmHG Vent. Rate : 068 BPM Atrial Rate : 068 BPM P-R Int : 146 ms QRS Dur : 082 ms QT Int : 372 ms P-R-T Axes : 083 056 073 degrees QTc Int : 395 ms Sinus rhythm. with premature atrial complexes. in a pattern of bigeminy. Possible Left atrial enlargement Borderline ECG When compared with ECG of 20-OCT-2018 14:30, (Unconfirmed) Sinus rhythm. has replaced Atrial fibrillation. Vent. rate has decreased BY 63 BPM Unconfirmed Result
[2018-10-21] MEDS ORDERED: NS 1,000 ML IV SCH (09:30)
[2018-10-21] MEDS: CARDIZEM 125 MG in NS 100 ML IV SCH (09:47)
--- NOTE | 2018-10-21 11:04 | PROGRESS NOTE ---
DATE: 10/21/2018 INTERVAL HISTORY: Ms. Vargas was admitted for dizziness, diarrhea, and hypoxia with palpitation. In the emergency room, she was found to have atrial fibrillation with rapid ventricular rate. OVERNIGHT EVENTS: She did developed atrial fibrillation with rapid ventricular rate, and her diltiazem drip was restarted. SUBJECTIVE: She is feeling fine. She denies any unusual cough, though she is coughing at the time of my examination. She denies any more palpitation. She has not had diarrhea since in the emergency room. OBJECTIVE: Vitals: Currently temperature 97.5 degrees, pulse 122, respiratory rate 22, blood pressure 103/52, she is saturating 98% on 2 L nasal cannula. General: Does not appear in any acute distress. Oral cavity is dry. Air entry bilaterally equal. No wheeze, rhonchi, crackles. S1, S2 normal with no murmur, rub, or gallop. She does have rhonchi on the right inframammary region. She has left-sided port. Her heart rate is irregularly irregular and tachycardic. Abdomen is soft, nontender. No lower extremity edema. LABORATORIES: Suggestive of macrocytic anemia, normal platelet count. Hypokalemia which is being repleted and normal kidney function. MICROBIOLOGY: Blood cultures are in lab. Stool has not been collected yet. RADIOLOGICAL DATA: No new imaging. ASSESSMENT AND PLAN: 1. Atrial fibrillation with rapid ventricular rate. I will resume her home metoprolol and continue intravenous diltiazem drip. Her paroxysmal supraventricular tachycardia has been ongoing since many months now and had required significant titration of her medication. I appreciate Cardiology's recommendation about switching off slowly from entire intravenous diltiazem drip to her p.o. diltiazem probably tomorrow. Continue apixaban for primary cerebrovascular accident prophylaxis. 2. Diarrhea and dizziness, likely due to leading to volume depletion. Give her intravenous fluids. Continue her on heart healthy diet. 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 We appreciate Hematology/Oncology's recommendation about taper of steroids depending on her response. 3. History of chronic obstructive pulmonary disease and chronic hypoxic respiratory failure. Continue albuterol/ipratropium nebulization, Breo Ellipta nebulization, Spiriva inhaler, and oxygenation. 4. Others: Continue alprazolam for anxiety; calcium carbonate for hypocalcemia; [place] for chronic pain; levetiracetam for history of seizure; rosuvastatin for hyperlipidemia. 5. 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 Hematology/Oncology on board. 6. History of recently treated Stenotrophomonas pneumonia: Her cough is not worse as per the history. Though, her CT scan report says worsening bronchial thickening. I would monitor it clinically for now. I will continue to monitor patient in [facility] as a bed becomes available and appreciate Cardiology and Hematology/Oncology recommendations. I will also have Physical Therapy evaluation. Plan of care discussed with the patient. All of her questions have been answered. The patient does appear to have baseline cognitive impairment. cc: Josesito Thomas MD MTDD
[2018-10-21] MEDS: PREDNISONE PO SCH (11:36)
[2018-10-21] MEDS: ELIQUIS PO SCH ×2 (11:37→21:45)
[2018-10-21] MEDS: KEPPRA PO SCH ×2 (11:37→21:45)
[2018-10-21] MEDS: KLOR-CON PO SCH ×2 (11:37→15:18)
[2018-10-21] MEDS: LOPRESSOR PO SCH ×2 (11:38→21:45)
--- NOTE | 2018-10-21 14:25 | EKG Report ---
Test Performed on : 10/21/2018 09:11:38 AM Test Reason : ED. NO EKG ORDER FOR MUSE Blood Pressure : / mmHG Vent. Rate : 107 BPM Atrial Rate : 107 BPM P-R Int : 124 ms QRS Dur : 076 ms QT Int : 320 ms P-R-T Axes : 073 050 066 degrees QTc Int : 427 ms Sinus tachycardia. with premature atrial complexes. with aberrant conduction. Minimal voltage criteria for LVH, may be normal variant Septal infarct , age undetermined Abnormal ECG When compared with ECG of 21-OCT-2018 00:48, (Unconfirmed) Vent. rate has increased BY 39 BPM Unconfirmed Result
[2018-10-21] MEDS: CARDIZEM CD PO SCH (15:17)
[2018-10-21] MEDS: TUMS PO SCH ×2 (15:19→21:56)
[2018-10-21] MEDS: DUONEB (A & A) INH SCH ×3 (16:28→22:06)
[2018-10-21] MEDS: CALMOSEPTINE OINTMENT TOP PRN (17:20)
--- NOTE | 2018-10-21 18:59 | CONSULTATION ---
DATE OF CONSULTATION: 10/21/2018 IMPRESSION: 1. Episode of atrial fibrillation with rapid ventricular rate, with history of paroxysmal atrial fibrillation in the past. Patient spontaneously converted back to sinus rhythm. 2. Likely intravascular volume depletion in the setting of diarrhea. 3. Paroxysmal atrial fibrillation. 4. Small cell lung cancer. 5. Hypertension. 6. Chronic obstructive pulmonary disease. RECOMMENDATIONS: 1. Continue diltiazem and metoprolol orally for rate control with paroxysmal atrial fibrillation. 2. Continue anticoagulation as tolerated. 3. Conservative cardiovascular management overall. HISTORY: This is a 77-year-old white female, with past history of paroxysmal atrial fibrillation, COPD, small cell lung cancer, hypertension, was admitted with weakness/dizziness and diarrhea. She was found to be in atrial fibrillation with rapid ventricular rate. Blood pressure was low. She was given intravenous fluid as well as intravenous Cardizem. She converted back to sinus rhythm. She has history of previous atrial fibrillation in the past and has been followed by Dr. Jeff Peña from a heart standpoint. She has been on Cardizem, metoprolol, and Eliquis. She has been treated with chemotherapy and radiation therapy for her lung cancer. PAST MEDICAL HISTORY: 1. Paroxysmal atrial fibrillation. 2. Chronic obstructive pulmonary disease. 3. Small cell lung cancer. 4. Hypertension. PAST SURGICAL HISTORY: Includes: 1. Hysterectomy. 2. Cataract surgery. ALLERGIES: She is allergic or intolerant to Levaquin, penicillin, Avelox, aspirin, clindamycin, and Neosporin. MEDICATIONS PRIOR TO ADMISSION: As listed. SOCIAL HISTORY: She has history of previous cigarette use, but discontinued this. She does not use alcohol. FAMILY HISTORY: Negative for premature coronary disease. There is a family history of coronary disease with older age clinical onset. REVIEW OF SYSTEMS: Pulmonary: Noncontributory beyond History of Present Illness. Gastrointestinal: Noncontributory beyond History of Present Illness. Constitutional: Noncontributory beyond History of Present Illness. Remainder of review of systems noncontributory beyond History of Present Illness with 14 total systems reviewed. PHYSICAL EXAMINATION: General: Reveals a thin, elderly white female in no distress, on supplemental oxygen. Vital Signs: Blood pressure 145/52, heart rate 100 and regular with electrocardiogram monitor currently showing sinus rhythm, oxygen saturation 99% on nasal cannula oxygen at 2 L/minute. HEENT: Extraocular movements appear intact. Mucous membranes are moist. Neck: Supple without jugular distention. There are no carotid bruits. Chest: Auscultation of the chest reveals a few scattered expiratory rhonchi, but otherwise clear. Cardiac: Regular rate and rhythm without appreciable murmur or gallop. Abdomen: Soft. Bowel sounds are normal. Extremities: Without edema. Neurologic: Reveals her to be alert and fully oriented. Speech is fluent. She moves all 4 extremities equally well. Skin: Warm and dry. Psychiatric: Reveals her mood to be appropriate. PERTINENT DATA: A 12 lead EKG on presentation demonstrates atrial fibrillation with a rapid ventricular rate. Followup ECG shows normal sinus rhythm with occasional premature supraventricular complexes in pattern of atrial bigeminy. LABORATORY DATA: Includes white blood cell count 4.05, hematocrit 27.5 hemoglobin 8.7, MCV 104.6. Sodium 136, potassium 3.4, chloride 102, carbon dioxide 23, BUN 14, creatinine 0.8, glucose 79, magnesium 1.9. cc: Jd Campbell MD
--- NOTE | 2018-10-21 20:12 | Diag Imaging Result Doc PS360 ---
EXAM: CT THORAX W/WO CONTRAST HISTORY: Small cell lung cancer TECHNIQUE: CT chest with and without intravenous contrast COMPARISON: 09/19/2018 FINDINGS: Trace pleural fluid. No cardiomegaly. No thoracic aortic aneurysm or dissection. Normal opacification of the pulmonary arteries and their major branches. Small mediastinal nodes similar to the prior exam. There is bronchial wall thickening which is more pronounced. There are nodular infiltrates in the lower lungs and posterior right upper lobe. Scarring in the upper lungs. Moderate emphysema. Mild bronchiectasis. Scarring in the medial right upper lobe. No pneumothorax. IMPRESSION: 1.Multinodular/tree-in-bud infiltrates most pronounced posteriorly in the lower lobes which are more prominent than on the prior study 2.Worsening bronchial wall thickening 3.Development of trace pleural fluid This exam was performed using automated exposure control, adjustment of mA or kV according to patient size, and/or use of iterative reconstruction technique. Electronically signed by Kannan Mccann 10/21/2018 8:10 PM
[2018-10-21] MEDS: CRESTOR PO SCH (21:45)
[2018-10-21] MEDS: FOLIC ACID PO SCH (21:45)
[2018-10-22] MEDS: DUONEB (A & A) INH SCH ×4 (03:17→21:38)
--- NOTE | 2018-10-22 08:15 | EKG Report ---
Test Performed on : 10/22/2018 06:22:12 AM Test Reason : afib Blood Pressure : / mmHG Vent. Rate : 070 BPM Atrial Rate : 070 BPM P-R Int : 152 ms QRS Dur : 084 ms QT Int : 380 ms P-R-T Axes : 072 062 071 degrees QTc Int : 410 ms Sinus rhythm. with premature atrial complexes. Otherwise normal ECG When compared with ECG of 21-OCT-2018 09:11, (Unconfirmed) Vent. rate has decreased BY 37 BPM Criteria for Septal infarct are no longer present Confirmed by Donal Walters MD ([id number]) on 10/22/2018 4:53:35 PM
[2018-10-22] MEDS: BREO ELLIPTA 100/25 MCG INH INH SCH (08:21)
[2018-10-22] MEDS: SPIRIVA INH SCH (08:21)
[2018-10-22] MEDS: TUMS PO SCH ×4 (08:41→20:46)
[2018-10-22] MEDS: FOLIC ACID PO SCH ×2 (08:41→20:45)
[2018-10-22] MEDS: PREDNISONE PO SCH (08:41)
[2018-10-22] MEDS: ELIQUIS PO SCH ×2 (08:42→20:46)
[2018-10-22] MEDS: LOPRESSOR PO SCH (08:42)
[2018-10-22] MEDS: CARDIZEM CD PO SCH (08:42)
[2018-10-22] MEDS: KEPPRA PO SCH ×2 (08:49→20:45)
[2018-10-22] MEDS ORDERED: CARDIZEM CD PO SCH (09:00)
[2018-10-22] MEDS: XANAX PO PRN (10:14)
[2018-10-22] MEDS: KLOR-CON PO SCH ×2 (10:14→13:48)
[2018-10-22] MEDS ORDERED: AZACTAM 1 GM in NS 50 ML IV SCH (11:00)
[2018-10-22] MEDS: ZITHROMAX PO SCH (11:40)
--- NOTE | 2018-10-22 12:32 | PROGRESS NOTE ---
DATE: 10/22/2018 INTERVAL HISTORY: No acute events. The patient was started on her oral medication for atrial fibrillation, which she tolerated well. SUBJECTIVE: Patient denies any chest pain. She is coughing up some sputum, but this is according to her, not more than her usual. We discussed about her exam findings. We also discussed about physical therapy, and I answered all of her questions. VITAL SIGNS: Temperature 97.6 degrees, She did have a fever of 100.4 yesterday morning. Pulse of 57, respiratory rate 18, and her blood pressure is 109/46. She is saturating 100% on 2 L nasal cannula. PHYSICAL EXAMINATION: General: She does not appear in any acute distress. HEENT: Oral cavity is moist. Lungs: Air entry bilaterally equal. No wheeze, rhonchi, or crackles. Cardiovascular: S1, S2 normal. No murmur, rub, or gallop. Appears irregular on bedside monitor. She has some premature atrial contraction. She has left-sided port. Abdomen: Soft and nontender. Extremities: No lower extremity edema. She is tremulous and shaky, and feeling cold. Neurologic: She is alert and oriented x2, and answers simple questions. LABORATORY: Labs are suggestive of WBC of 4000, chronic anemia, and normal platelet count. Her BMP suggestive of hypokalemia which is being repleted. Her hyponatremia and hypochloremia have resolved. Her acute kidney injury has also resolved. Iron studies suggestive of extremely low saturation. She is on folic acid for that. ASSESSMENT AND PLAN: 1. Diarrhea and dizziness leading to volume depletion, and acute kidney injury, status post intravenous fluids now improved. Continue heart healthy diet. Continue physical therapy. She was just discharged from rehab 3 days prior to current admission. 2. Atrial fibrillation with rapid ventricular rate. Continue home metoprolol, diltiazem and apixaban for primary cerebrovascular accident prophylaxis. Currently, rate well controlled. 3. Acute kidney injury because of volume depletion now resolved. 4. History of chronic obstructive pulmonary disease and chronic hypoxic respiratory failure with mainly nighttime oxygen and current episode of bronchitis which is likely contributing to CT scan finding of bronchial wall thickening and fever. Continue albuterol ipratropium nebulization, Breo Ellipta, Spiriva inhaler, oxygenation, and start patient on azithromycin. Follow up with sputum culture results. 5. Chronic anemia. Continue home folic acid, and start patient on iron tablets considering her extremely low saturation. 6. Recent episode of diarrhea and immune checkpoint inhibitor-induced colitis. I will start her again on high dose of steroids following which her diarrhea has resolved, and appreciate Heme- Onc recommendation about tapering off steroids. 7. Others. Continue alprazolam for anxiety; calcium carbonate for hypocalcemia and chronic GERD; [place] for chronic pain; levetiracetam for seizure; and rosuvastatin for hyperlipidemia. 8. History of small cell lung cancer in the past treated on Opdivo. Heme-Onc on board. 9. Disposition: I will continue to monitor patient in CICU for another 24 hours. I will assess her functional status, and based on that I will plan discharging her in the next 24 to 48 hours either on home physical therapy or rehab if that could still be an option. Plan of care discussed with the patient. All of her questions have been answered. cc: Josesito Thomas MD ADDENDUM: Bradycardia: Likely due to multiple AV carolyne blocking agents. I am holding these agents and giving her IV fluids. I updated her family about her condition in person. The nursing team had discussion with patient's family about code status and they decided to make patient DNR DNI. I again reevaluated the patient at 745 PM. At this time, the family is not at bedside.I will keep her full code for tonight and revisit code status tomorrow. Patient does have some cognitive impairment and intermittent confusioin. So, I would suggest family to make decision on behalf of her. Patient's heart rate is in high 50s to low 60s and she looks much better now. Head CT is unremarkable. MTDD
[2018-10-22] MEDS: CALMOSEPTINE OINTMENT TOP PRN (14:54)
--- NOTE | 2018-10-22 15:27 | EKG Report ---
Test Performed on : 10/22/2018 3:21:26 PM Test Reason : bradycardia Blood Pressure : / mmHG Vent. Rate : 047 BPM Atrial Rate : 047 BPM P-R Int : 146 ms QRS Dur : 082 ms QT Int : 400 ms P-R-T Axes : 042 031 054 degrees QTc Int : 354 ms Sinus bradycardia. Otherwise normal ECG When compared with ECG of 22-OCT-2018 06:22, (Unconfirmed) premature atrial complexes. are no longer present Vent. rate has decreased BY 23 BPM QT has shortened Confirmed by Donal Walters MD ([id number]) on 10/22/2018 5:04:43 PM
[2018-10-22] MEDS ORDERED: NS 1,000 ML IV SCH (16:00)
--- NOTE | 2018-10-22 17:18 | Diag Imaging Result Doc PS360 ---
EXAM: CT HEAD W/O CONTRAST 10/22/2018 HISTORY: AMS TECHNIQUE: This exam was performed using automated exposure control, adjustment of mA or kV according to patient size, and/or use of iterative reconstruction technique. COMMENT: There is some patchy ill-defined lucency in the white matter of both hemispheres. There are small lacunae present in the external capsule on both sides but particularly on the right. There has been no significant change in the appearance the brain since 09/13/2018. There is no evidence of mass effect, bleed, or abnormal extra-axial fluid collection. The calvarium is intact. The visualized paranasal sinuses are without air-fluid levels. There is mucosal thickening in the inferior maxillary sinuses bilaterally. IMPRESSION: Chronic ischemic microvascular changes. Chronic bilateral maxillary sinusitis. Electronically signed by Matt Velazco 10/22/2018 5:16 PM
--- NOTE | 2018-10-22 17:58 | Diag Imaging Result Doc PS360 ---
EXAM: CHEST-PORTABLE 10/22/2018 HISTORY: AMS, dyspnea TECHNIQUE: AP portable at 1739 COMMENT: There is ill-defined opacity in both lung bases. This is worse than on 10/20/2018. IMPRESSION: Bibasilar atelectasis versus pneumonia. Electronically signed by Matt Velazco 10/22/2018 5:55 PM
[2018-10-22] MEDS: CRESTOR PO SCH (20:46)
--- NOTE | 2018-10-22 22:57 | PROGRESS NOTE ---
DATE: 10/22/2018 SUBJECTIVE: Patient had difficulty earlier today with lethargy, bradycardia, and low blood pressure. She improved with gentle fluid administration. Late afternoon she is awake and responsive. Blood pressure is improved. Heart rate is also improved with a heart rate of 45 to 50 beats per minute. She denies any chest discomfort or shortness of breath on nasal cannula oxygen. In talking to her daughter, it is related that she has not been consistently getting her cardiovascular medications due to some tendency for bradycardia. The patient's daughter on several days has had to hold her cardiovascular medications because of bradycardia. OBJECTIVE: Vital signs: Blood pressure 95/46, heart rate 45, oxygen saturation 100% on nasal cannula oxygen at 2 L/minute. Neck: There is no significant jugular venous distention. Chest: Clear to auscultation bilaterally. Cardiac Exam: Reveals a regular rate and rhythm without appreciable murmur or gallop. Extremities: Without edema. IMPRESSION: 1. Paroxysmal atrial fibrillation with recent episode of atrial fibrillation and rapid ventricular rate while patient off medications. Patient converted back to sinus rhythm. 2. Likely intravascular volume depletion in the setting of recent diarrhea. This potentially is contribute to poor tolerance of some of her cardiovascular medications in particular diltiazem. 3. Small cell lung cancer. 4. Hypertension. 5. Chronic obstructive pulmonary disease. RECOMMENDATIONS: 1. Stop Cardizem CD and metoprolol and re-initiate metoprolol cautiously alone for rate control with her paroxysmal atrial fibrillation. 2. Continue anticoagulation as tolerated. cc: Jd Campbell MD
[2018-10-23] MEDS: DUONEB (A & A) INH SCH ×4 (03:34→19:48)
[2018-10-23 05:57] LABS: AGAP 9; BUN 15 mg/dL (8-22); CALCIUM 8.9 mg/dL (8.8-10.2); CHLORIDE 101 mmol/L (98-107); COSMO 268; CREATININE 0.9 mg/dL (0.5-0.9); ESTIMATED GFR > 60; GLUCOSE 175 mg/dL (70-104); MAGNESIUM 1.5 mg/dL (1.5-2.7); SODIUM 131 mmol/L (136-145); TCO2 21 mmol/L (25-35)
--- NOTE | 2018-10-23 07:39 | EKG Report ---
Test Performed on : 10/23/2018 07:05:37 AM Test Reason : bradycardia Blood Pressure : / mmHG Vent. Rate : 073 BPM Atrial Rate : 073 BPM P-R Int : 150 ms QRS Dur : 078 ms QT Int : 368 ms P-R-T Axes : 068 060 068 degrees QTc Int : 405 ms Normal sinus rhythm. Normal ECG When compared with ECG of 22-OCT-2018 15:21, Vent. rate has increased BY 26 BPM Confirmed by Donal Walters MD ([id number]) on 10/26/2018 11:29:53 AM
[2018-10-23] MEDS ORDERED: D5W 1,000 ML IV ONE (08:20)
[2018-10-23] MEDS: FOLIC ACID PO SCH ×2 (08:58→21:29)
[2018-10-23] MEDS: ZITHROMAX PO SCH (08:58)
[2018-10-23] MEDS: ELIQUIS PO SCH ×2 (08:58→21:29)
[2018-10-23] MEDS: TUMS PO SCH ×3 (08:58→21:29)
[2018-10-23] MEDS: FERROUS SULFATE PO SCH (08:58)
[2018-10-23] MEDS: PREDNISONE PO SCH (08:58)
[2018-10-23] MEDS: MAGNESIUM SULFATE 2 GM/S.W.I. 2 GM/50 ML IVPB IV SCH ×2 (08:59→12:21)
[2018-10-23] MEDS: SPIRIVA INH SCH (09:19)
[2018-10-23] MEDS: BREO ELLIPTA 100/25 MCG INH INH SCH (09:19)
--- NOTE | 2018-10-23 09:33 | ECHO REPORT ---
ORDER DATE: 10/22/2018 INTERPRETING PHYSICIAN: Agapito Bosch MD. Limited study. Pleural effusion, CHF. M-MODE MEASUREMENTS: Left ventricle end diastole: 3.7 cm. Left ventricle end systole: 2.5 cm. Posterior wall: 0.9 cm. Interventricular septum: 0.8 cm. Left atrium: 2.9 cm. Aortic root: 2.7 cm. SUMMARY OF 2-DIMENSIONAL IMAGIN. The left ventricle is not hypertrophic. Left ventricular systolic function is normal. The patient appears to be bradycardic. 2. There is a moderate pericardial effusion that does not appear to cause any pericardial tamponade. 3. There is dense calcification of mitral annulus. 4. The aortic valve shows no evidence of stenosis. It opens normally. 5. The mitral valve also has normal excursion. 6. The inferior vena cava appears to be dilated with minimal respiratory variation suggesting elevation of the right atrial pressure. 7. The right atrium appears to be moderately enlarged. 8. The left atrium appears to be within normal range. SUMMARY: This study shows a moderate pericardial effusion without tamponade. There is normal left ventricular systolic function. There is calcification of the mitral annulus. The right atrial pressure is elevated and so appears to be pulmonary systolic pressure which is grossly estimated in this case to be at somewhere around 52-57 mmHg. Clinical correlation is recommended. cc: MD Jeny Cuellar PA
[2018-10-23] MEDS: KEPPRA PO SCH ×2 (10:11→21:29)
[2018-10-23] MEDS: AZACTAM 1 GM in NS 50 ML IV SCH ×2 (11:01→17:33)
--- NOTE | 2018-10-23 12:53 | PROGRESS NOTE ---
DATE: 10/23/2018 INTERVAL HISTORY: No acute events. The patient's heart rate was in 60s and 70s. It was normal sinus rhythm. No more further bradycardia episode. SUBJECTIVE: She is sitting in the potty chair. Denies any complaints. She has not been eating that well. She denies any chest pain or shortness of breath. VITALS: Temperature of 98.2 degrees, pulse 70, respiratory rate 19, blood pressure 125/47, saturating 100% on 2 L nasal cannula. PHYSICAL EXAMINATION: General: Does not appear in any acute distress. Oral cavity is moist. Air entry bilaterally equal. No wheeze. She does have a rhonchorous breath sound on the right lung puentes as compared to left. No crackles. S1, S2 normal. Regular. No murmur, rub, or gallop. Abdomen is soft, nontender. She has a left-sided chest port. No lower extremity edema. She is alert, oriented to herself, place, and situation. She states that she would not want cardiopulmonary resuscitation or intubation if the need arises. LABORATORIES: Suggestive of sodium of 131, normal kidney function. MICROBIOLOGY: No data. IMAGING: No new imaging except echocardiogram which had elevated right ventricular/pulmonary artery pressure. Moderate pericardial effusion without any tamponade. Chest x-ray has especially right lower lobe infiltrate versus atelectasis. ASSESSMENT AND PLAN: 1. Atrial fibrillation with rapid ventricular rate and bradycardia with brief hypotensive episode to 99/44 on Cardizem and metoprolol. Both of these medications have been held. I will resume her metoprolol as tolerated once her heart rate starts going high. Cardiology on board. Continue apixaban for primary CVA prophylaxis. 2. Diarrhea and dizziness on presentation, leading to volume depletion, now resolved. Continue heart healthy diet. 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 Hematology Oncology recommendation about steroid dosing is pending. 3. History of chronic obstructive pulmonary disease, chronic hypoxic respiratory failure on nighttime home oxygen. Current chest exam findings of rhonchi and right lower lobe infiltrate. She does not have leukocytosis. She is not feeling short of breath. However, considering chest x-ray finding and her risk, I will go ahead and treat her with intravenous aztreonam. I will continue albuterol/ipratropium nebulization, Breo Ellipta, Spiriva, and oxygenation. 4. Others: Continue alprazolam for anxiety, calcium carbonate for hypocalcemia, Meherrin for chronic pain, levetiracetam for history of seizure, rosuvastatin for hyperlipidemia. 5. 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 Hematology/Oncology on board. DISPOSITION: I will continue to monitor patient in [facility]IC and physical therapy. She has had multiple hospital admissions over the last few months and has become physically deconditioned. She had just been to rehabilitation recently. Her overall functional status is declining, which is concerning. Yesterday I had discussed plan of care with the patient's [id number] at bedside and had answered all of her questions. cc: Josesito hTomas MD MTDD
[2018-10-23] MEDS ORDERED: LASIX IV ONE (18:54)
--- NOTE | 2018-10-23 20:54 | CARDIOLOGY PROGRESS NOTE ---
DATE: 10/23/2018 SUBJECTIVE: Patient reports feeling weak, but denies any chest discomfort or shortness of breath, on supplemental oxygen per nasal cannula. OBJECTIVE: Blood pressure 133/55, heart rate 79 and regular, oxygen saturation 100% on nasal cannula oxygen at 2 L/minute. Jugular venous distention cannot be appreciated. Auscultation of chest reveals scattered rhonchi. Cardiac: Regular rate and rhythm without appreciable murmur or gallop. Extremities: Without edema. LABORATORY AND DIAGNOSTIC DATA: Includes sodium 131, potassium 5.0, chloride 101, carbon dioxide 21, BUN 15, creatinine 0.9, glucose 175. Limited followup echocardiography demonstrates normal left ventricular systolic function. Moderate pericardial effusion demonstrated without evidence of hemodynamic impact. Inferior vena cava dilated with minimal respiratory variation suggesting elevation of right atrial pressure. IMPRESSION: 1. Paroxysmal atrial fibrillation with recent episode of atrial fibrillation and rapid ventricular rate while patient off medications. Patient converted back to sinus rhythm. 2. Recent problems with bradycardia and low blood pressure after initiation of patient's usual home cardiovascular medications. It would appear that she poorly tolerates the current doses and retitration is needed. Will resume low-dose beta yonas, but hold off on resumption of diltiazem. 3. Volume overload following recent hydration. 4. Small-cell lung cancer. 5. Hypertension. 6. Chronic obstructive pulmonary disease. RECOMMENDATIONS: 1. Resume low-dose metoprolol cautiously for rate control with her paroxysmal atrial fibrillation. 2. Continue anticoagulation as tolerated. 3. Diurese to try and correct volume excess. cc: Jd Campbell MD
[2018-10-23] MEDS: CRESTOR PO SCH (21:29)
[2018-10-23] MEDS: LOPRESSOR PO SCH (23:17)
[2018-10-24] MEDS: AZACTAM 1 GM in NS 50 ML IV SCH ×3 (01:07→17:14)
[2018-10-24] MEDS: DUONEB (A & A) INH SCH ×5 (03:13→23:56)
[2018-10-24 06:05] LABS: HEMATOCRIT 23.6 % (37.0-47.0); HEMOGLOBIN 7.6 g/dL (12.0-16.0); IMM GRAN# 0.03 X1000 (0.0-0.04); IMM GRAN% 0.7 % (0.0-0.5); LYMPH# 0.49 X1000 (1.2-3.4); MCH 32.6 PG (27-31); MCHC 32.2 g/dL (33-37); MCV 101.3 FL (81-99); MONO# 0.39 X1000 (0.11-0.59); MONO% 9.5 % (1.7-9.3); NEUT# 3.19 X1000 (1.4-6.5); NEUT% 77.8 % (42.2-75.2); PLT 224 X1000 (130-400); RBC 2.33 XMIL (4.2-5.4); RDW 18.8 % (11.5-14.5)
[2018-10-24 06:39] LABS: AGAP 14; BUN 14 mg/dL (8-22); CALCIUM 9.5 mg/dL (8.8-10.2); CHLORIDE 95 mmol/L (98-107); COSMO 276; CREATININE 0.9 mg/dL (0.5-0.9); ESTIMATED GFR > 60; GLUCOSE 126 mg/dL (70-104); POTASSIUM 3.8 mmol/L (3.5-5.1); SODIUM 137 mmol/L (136-145); TCO2 28 mmol/L (25-35)
[2018-10-24] MEDS: BREO ELLIPTA 100/25 MCG INH INH SCH (08:19)
[2018-10-24] MEDS: SPIRIVA INH SCH (08:19)
[2018-10-24] MEDS: PREDNISONE PO SCH (09:29)
[2018-10-24] MEDS: ZITHROMAX PO SCH (09:29)
[2018-10-24] MEDS: LOPRESSOR PO SCH ×2 (09:29→20:27)
[2018-10-24] MEDS: TUMS PO SCH ×3 (09:29→20:27)
[2018-10-24] MEDS: FERROUS SULFATE PO SCH (09:29)
[2018-10-24] MEDS: KEPPRA PO SCH ×2 (09:29→20:28)
[2018-10-24] MEDS: FOLIC ACID PO SCH ×2 (09:29→20:27)
--- NOTE | 2018-10-24 10:42 | PROGRESS NOTE ---
DATE: 10/24/2018 SUBJECTIVE: Patient denies shortness of breath or chest discomfort on supplemental oxygen per nasal cannula. She still has some cough. OBJECTIVE: Blood pressure 167/62, heart rate 104 with ECG monitor showing sinus tachycardia. Oxygen saturation 99% on nasal cannula oxygen at 2 L/minute.Neck: Jugular venous distention cannot be appreciated. Chest: Auscultation of the chest reveals scattered rhonchi. Cardiac: Exam reveals a regular rate and rhythm without appreciable murmur or gallop. There is no evidence of peripheral edema. LABORATORY DATA: White blood cell count of 4.1, hematocrit 23.6, and hemoglobin 7.6. Sodium 137, potassium 3.8, chloride 95, carbon dioxide 28, BUN 14 creatinine 0.9, and glucose 126. IMPRESSION: 1. Paroxysmal atrial fibrillation with recent episode of atrial fibrillation rapid ventricular rate. Off medications. Patient converted back to sinus rhythm. 2. Recent problems with bradycardia and low blood pressure after initiation of patient's usual home cardiovascular medications. She poorly tolerates current doses and retitration needed. Low-dose beta-yonas resumed. 3. Anemia. This seems to be progressing. 4. Recent volume overload following recent hydration. 5. Small cell lung cancer. 6. Hypertension. 7. Chronic obstructive pulmonary disease. RECOMMENDATIONS: 1. Continue low-dose metoprolol. 2. Given decline in hematocrit, we will interrupt Eliquis at this point. 3. Mobilize the patient as tolerated and pursue pulmonary toilet. cc: Jd Campbell MD
[2018-10-24] MEDS: ELIQUIS PO SCH ×2 (10:51→20:28)
--- NOTE | 2018-10-24 15:36 | PROGRESS NOTE ---
DATE: 10/24/2018 INTERVAL HISTORY: She started becoming tachycardic again and metoprolol was added. SUBJECTIVE: She is eating her breakfast. Looks much better today than before. We discussed about pneumonia. We discussed about following with sputum culture results. VITALS: Currently, temperature 97.7 degrees, pulse 96, respiratory rate 17, blood pressure 170/64. She is saturating 100% on 1 liter nasal cannula. PHYSICAL EXAMINATION: General: Does not appear in any acute distress. Oral cavity is moist. Lungs: She does have right inframammary rhonchi and crackles. No wheeze. Heart: S1, S2 normal. Irregularly irregular. Bedside monitor has heart rate of 108 with premature atrial contractions and intermittent sinus rhythm. Abdomen: Soft, nontender. Extremities: No lower extremity edema. Neurologic: She is alert. She is oriented to herself, this place, to me and to situation today. LABS: Suggestive of normocytic and macrocytic anemia, normal platelet count, normal kidney function. Her sputum culture is in lab. ASSESSMENT AND PLAN: 1. Atrial fibrillation with a rapid ventricular rate and then bradycardia and hypotension on Cardizem and metoprolol. Continue metoprolol only as per Cardiology recommendation. Currently heart rate is close to 100 and is unacceptable. She may need up titration of beta yonas as per Cardiology recommendation. Continue apixaban for primary cerebrovascular accident prophylaxis. 2. Suspected right lower lobe pneumonia. The patient did not have leukocytosis and she had states her cough is her baseline chronic obstructive pulmonary disease cough. CT scan did have evidence of bronchitis. I will treat her with intravenous aztreonam and intravenous azithromycin until final sputum culture results comes back. She did, however, have history of treated Stenotrophomonas and Acinetobacter in the past. I will adjust antibiotic according to sputum cultures. 3. Diarrhea and dizziness on presentation leading to volume depletion, now resolved. Continue heart healthy diet. I had restarted steroids for immune checkpoint inhibitor-induced colitis relapse. Hematology/Oncology recommendation is still pending about titrating steroids down. 4. Others. Continue alprazolam for anxiety, calcium carbonate for hypocalcemia, Amity for chronic pain, levetiracetam for history of seizures, rosuvastatin for hyperlipidemia. 5. 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 Hematology/Oncology on board. I assume her last treatment was in August 2018. DISPOSITION: In summary, Ms. Vargas was recently discharged from rehab and she went home 2 days prior to current admission, but came back with complaints of dizziness and diarrhea, and in the ER was found to have atrial fibrillation, RVR with heart rate of 160, so she was admitted for further management. Since then, she has developed episodes of bradycardia, suspected pneumonia. I have asked director of social work team to see if she would qualify for another rehab. Otherwise if her sputum cultures are negative, the plan is to discharge patient home with home physical therapy versus rehab if possible. My discussion with family regarding this plan is pending. Yesterday I had discussed with them about patient's clinical course. cc: Josesito Thomas MD MTDD
[2018-10-24] MEDS: VENOFER 300 MG in NS 250 ML IV SCH (17:14)
--- NOTE | 2018-10-24 19:37 | HEMO/ONC CONSULTATION ---
DATE: 10/24/2018 ADMITTING PHYSICIAN: Dr. Agapito Jim. REQUESTING PHYSICIAN: Dr. Agapito Jim. We appreciate this consult. CHIEF COMPLAINT: Small-cell lung cancer. HISTORY OF PRESENT ILLNESS: Ms. Keren Vargas is a pleasant 77-year-old female, well known to Dr. Fsicher with a history of small-cell lung cancer. She has been managed on carboplatin and etoposide until July of 2018 at which time, the patient was begun on Opdivo. The patient received a dose on 08/28/2018, but developed subsequent immune mediated colitis. Therefore the patient was placed on steroids and Opdivo was held. The patient also has a history of COPD, hypertension, atrial fibrillation. She was discharged from rehabilitation approximately 1 week prior to admission to [facility]. The patient presented to [facility] emergency department with complaints of dizziness diarrhea and a racing heart. The patient was found to be in atrial fibrillation with rapid ventricular response as well as hypotension. She was given IV fluid boluses and started on a Cardizem drip. The patient was admitted for the same. PAST MEDICAL HISTORY: As in HPI. PAST SURGICAL HISTORY: 1. Hysterectomy. 2. Cataract extraction. 3. Port placement. MEDICATIONS ON ADMISSION: 1. Albuterol nebs. 2. Xanax. 3. Eliquis. 4. Aspirin. 5. Diltiazem. 6. Folic acid. 7. Furosemide. 8. Keppra. 9. Metoprolol. 10. Rosuvastatin. ALLERGIES: Are to Levaquin, penicillin, Avelox, aspirin, clindamycin and Neosporin. REVIEW OF SYSTEMS: A 14-point review of systems was obtained and is negative except for mentioned in HPI. PHYSICAL EXAM: Ms. Keren Vargas is an elderly 77-year-old female lying supine in bed in no immediate distress.HEENT: Normocephalic, atraumatic. Mucous membranes are pale and somewhat dry. Sclerae anicteric. Extraocular movements intact. Neck: Supple. Lungs: With wheezes in the bases. CV: S1-S2 is heard. No murmurs, rubs or gallops. Abdomen: Nondistended, nontender. Bowel sounds positive in all quadrants. No rebound or guarding noted. Extremities: Without clubbing, cyanosis, or edema. Dermatologic: No rashes, bruises or lesions. Neurologic: The patient is awake, alert, and oriented x3. She has no focal deficits. LABORATORY DATA: Hemoglobin 8.7, hematocrit 27.5, white blood cell count 4.05, platelets 175,000. Sodium 136, potassium 3.4, chloride 102, CO2 is 23, BUN 14, creatinine 0.8, and glucose is 79, calcium is 7.6, iron saturation 6%. Urinalysis is negative for urinary tract infection. ProBNP is 1532. IMAGING STUDIES: CT of the abdomen and pelvis reveals consolidation and bronchiectasis of both lung bases with fluid-filled mildly distended small bowel loops. ASSESSMENT AND PLAN: 1. Small-cell lung cancer, on carboplatin and etoposide until July of 2018. The patient was begun on Opdivo 08/28/2018 with subsequent immune mediated colitis. She was placed on steroids and Opdivo was held. We will obtain a CT of the chest and compared to last CT chest at [facility]. We will return the patient to Opdivo when appropriate. 2. Atrial fibrillation with rapid ventricular response. The patient is currently on a Cardizem drip with rate control. Cardiology is consulted and is following. 3. Hypotension, stable at this time. The patient is on IV fluids. 4. Diarrhea not likely due to Opdivo at this time. Last treatment was 08/28/2018. 5. Chronic obstructive pulmonary disease currently on DuoNeb. Stable. 6. Anemia stable. Would continue to monitor CBC and transfuse packed red blood cells if hemoglobin drops below 8.0. 7. Iron-deficiency anemia. The patient will be repleted with IV iron replacement. 8. We will follow along with you and make further recommendations pending outcomes. The above reflects the history exam, assessment and plan of Dr. Fischer. Dictated by JESSICA Cash for Rohit Fischer MD cc: JESSICA Cash MD
[2018-10-24] MEDS: CRESTOR PO SCH (20:27)
[2018-10-25] MEDS: AZACTAM 1 GM in NS 50 ML IV SCH ×4 (01:11→17:14)
[2018-10-25] MEDS: DUONEB (A & A) INH SCH ×4 (03:21→19:44)
[2018-10-25] MEDS ORDERED: APRESOLINE IV PRN (08:09)
[2018-10-25] MEDS: SPIRIVA INH SCH (08:43)
[2018-10-25] MEDS: BREO ELLIPTA 100/25 MCG INH INH SCH (08:43)
[2018-10-25] MEDS: LOPRESSOR PO SCH ×2 (08:55→20:37)
[2018-10-25] MEDS: TUMS PO SCH ×2 (08:55→14:19)
[2018-10-25] MEDS: PREDNISONE PO SCH (08:55)
[2018-10-25] MEDS: ELIQUIS PO SCH ×2 (08:55→20:37)
[2018-10-25] MEDS: ZITHROMAX PO SCH (08:55)
[2018-10-25] MEDS: FOLIC ACID PO SCH ×2 (08:55→20:35)
[2018-10-25] MEDS: NORVASC PO SCH ×2 (08:55→20:37)
[2018-10-25] MEDS: KEPPRA PO SCH ×2 (08:55→20:36)
[2018-10-25] MEDS: FERROUS SULFATE PO SCH (08:56)
--- NOTE | 2018-10-25 10:57 | PROGRESS NOTE ---
DATE: 10/25/2018 SUBJECTIVE: The patient reports breathing better. She is eating her breakfast now. No complaints at this time. OBJECTIVE: Vital signs: Temperature is 98.7, heart rate 74, respiratory rate 16, blood pressure 197/67, O2 saturation is 95% on 2 L nasal cannula. General: This is a chronically ill appearing and looking older than her stated age 78-year-old female lying in bed in no acute distress. HEENT: Head is normocephalic and atraumatic. Neck: No JVD noted. No carotid bruit. No lymphadenopathy. No thyromegaly. Cardiovascular: S1 and S2 heard. Irregularly irregular. No murmurs, gallops or rubs noted. Respiratory: Minimal rhonchi. Some crackles in both pulmonary bases. The patient is not using any accessory muscles or having work of breathing. Abdomen is soft, nontender to palpation. Bowel sounds present. No organomegaly. Extremities: No cyanosis, clubbing or edema. Peripheral pulses present in both legs. Neurologic: The patient is alert and oriented x3. Moves all 4 extremities. DIAGNOSTIC DATA: White cell count is 4.1, hemoglobin 7.6, hematocrit 23.6, platelets 224. Normal BMP. ASSESSMENT AND PLAN: 1. Atrial fibrillation with rapid ventricular response. Initially she was bradycardic and hypotensive with Cardizem and metoprolol. At this time, the patient is on metoprolol as per Cardiology's recommendations. Blood pressure is high, so I think at this point we have started her on amlodipine 5 mg p.o. b.i.d. The patient is on hydralazine p.r.n. We will continue to monitor this patient closely. 2. Suspected right lower lobe pneumonia. Sputum culture is still pending. The patient is on 2 days of aztreonam and azithromycin. We will continue with same management. 3. Diarrhea and dizziness on presentation related to volume depletion, resolved. 4. History of small cell lung cancer. Hematology/Oncology following this patient. The patient is being treated with Opdivo. We will continue with same medication. 5. Anemia of chronic disease. Hemoglobin has dropped to 7.6. Hematology/Oncology following. We will leave to them to monitor this condition. DISPOSITION: I think because the heart rate is well controlled with oral medications, we will transfer this patient to a regular room today. cc: David Rehman MD
[2018-10-25] MEDS: VENOFER 300 MG in NS 250 ML IV SCH (14:19)
[2018-10-25 15:46] LABS: BASO# 0.01 X1000 (0.0-0.2); BASO% 0.2 % (0.0-0.8); HEMATOCRIT 29.7 % (37.0-47.0); HEMOGLOBIN 9.6 g/dL (12.0-16.0); IMM GRAN# 0.11 X1000 (0.0-0.04); LYMPH# 0.42 X1000 (1.2-3.4); LYMPH% 7.8 % (20.5-51.1); MCH 32.5 PG (27-31); MCHC 32.3 g/dL (33-37); MCV 100.7 FL (81-99); MONO# 0.22 X1000 (0.11-0.59); MONO% 4.1 % (1.7-9.3); MPV 9.8 FL (7.4-10.4); NEUT# 4.65 X1000 (1.4-6.5); NEUT% 85.9 % (42.2-75.2); PLT 284 X1000 (130-400); RBC 2.95 XMIL (4.2-5.4); RDW 18.5 % (11.5-14.5); WBC 5.41 X1000 (4.8-10.8)
[2018-10-25 16:08] LABS: LYMPHS 8 % (21-51); MONO 5 % (1-9); SEGS 87 % (42-75)
[2018-10-25 16:09] LABS: ANISOCYTOSIS 1+; POIKILOCYTOSIS OCCASIONAL
[2018-10-25 16:10] LABS: LARGE PLATELETS OCCASIONAL
[2018-10-25 16:15] LABS: AGAP 12; BUN 16 mg/dL (8-22); CALCIUM 9.7 mg/dL (8.8-10.2); CHLORIDE 92 mmol/L (98-107); COSMO 273; CREATININE 0.9 mg/dL (0.5-0.9); ESTIMATED GFR > 60; GLUCOSE 190 mg/dL (70-104); POTASSIUM 3.8 mmol/L (3.5-5.1); SODIUM 133 mmol/L (136-145); TCO2 29 mmol/L (25-35)
[2018-10-25] MEDS: NORCO-10 PO PRN (20:36)
[2018-10-25] MEDS: CRESTOR PO SCH (20:37)
[2018-10-25] MEDS: XANAX PO PRN (20:37)
[2018-10-26] MEDS: TUMS PO SCH ×4 (01:59→21:26)
[2018-10-26] MEDS: AZACTAM 1 GM in NS 50 ML IV SCH ×3 (02:16→17:40)
[2018-10-26] MEDS: DUONEB (A & A) INH SCH ×5 (03:18→21:39)
[2018-10-26 07:58] LABS: BASO# 0.01 X1000 (0.0-0.2); BASO% 0.2 % (0.0-0.8); HEMATOCRIT 26.3 % (37.0-47.0); HEMOGLOBIN 8.6 g/dL (12.0-16.0); IMM GRAN# 0.18 X1000 (0.0-0.04); LYMPH# 0.88 X1000 (1.2-3.4); LYMPH% 19.4 % (20.5-51.1); MCH 32.8 PG (27-31); MCHC 32.7 g/dL (33-37); MCV 100.4 FL (81-99); MONO# 0.51 X1000 (0.11-0.59); MONO% 11.3 % (1.7-9.3); MPV 9.7 FL (7.4-10.4); NEUT# 2.95 X1000 (1.4-6.5); NEUT% 65.1 % (42.2-75.2); PLT 262 X1000 (130-400); RBC 2.62 XMIL (4.2-5.4); RDW 18.1 % (11.5-14.5); WBC 4.53 X1000 (4.8-10.8)
[2018-10-26 08:07] LABS: AGAP 12; BUN 13 mg/dL (8-22); CALCIUM 8.7 mg/dL (8.8-10.2); CHLORIDE 98 mmol/L (98-107); COSMO 276; CREATININE 0.7 mg/dL (0.5-0.9); ESTIMATED GFR > 60; GLUCOSE 99 mg/dL (70-104); POTASSIUM 3.6 mmol/L (3.5-5.1); SODIUM 138 mmol/L (136-145); TCO2 28 mmol/L (25-35)
[2018-10-26] MEDS: SPIRIVA INH SCH (08:19)
[2018-10-26] MEDS: BREO ELLIPTA 100/25 MCG INH INH SCH (08:19)
[2018-10-26] MEDS: FERROUS SULFATE PO SCH (09:58)
[2018-10-26] MEDS: LOPRESSOR PO SCH ×2 (09:59→21:26)
[2018-10-26] MEDS: FOLIC ACID PO SCH ×2 (09:59→21:25)
[2018-10-26] MEDS: NORVASC PO SCH ×2 (09:59→21:27)
[2018-10-26] MEDS: ZITHROMAX PO SCH (09:59)
[2018-10-26] MEDS: PREDNISONE PO SCH (09:59)
[2018-10-26] MEDS: ELIQUIS PO SCH ×2 (09:59→21:28)
[2018-10-26] MEDS: KEPPRA PO SCH ×2 (10:00→21:26)
[2018-10-26] MEDS: XANAX PO PRN ×2 (10:12→21:25)
[2018-10-26] MEDS: NORCO-10 PO PRN ×2 (10:12→21:26)
--- NOTE | 2018-10-26 13:50 | PROGRESS NOTE ---
DATE: 10/26/2018 SUBJECTIVE: Patient reports breathing much better. No complaints at this time. OBJECTIVE: Vital Signs: Temperature 97.8 degrees, heart rate 70, respiratory 15, blood pressure 128/67, O2 saturation 100% on room air. General examination: This is a chronically ill- appearing and looking older than her stated age, 78-year-old female lying in bed, in no acute distress. Cardiovascular: S1, S2 heard. Irregularly irregular but no murmurs, gallops, or rubs noted. Respiratory: Rhonchi noted in both pulmonary bases. The patient is not using any accessory muscles or having work of breathing. Abdomen: Soft. Nontender to palpation. Bowel sounds present. No organomegaly. Extremities: No clubbing, cyanosis, or edema. Peripheral pulses present in both legs. Neurological: Patient is alert and oriented x3. Moves 4 extremities. LABORATORY DATA: White cell count 4.53, hemoglobin 8.6, hematocrit 26.3, platelets 262,000. Normal BMP. ASSESSMENT AND PLAN: 1. Atrial fibrillation with rapid ventricular rate. At this point, patient is on metoprolol as per cardiology recommendation. Blood pressure is much better. She has been restarted on amlodipine 5 mg p.o. b.i.d. and hydralazine p.r.n. We will continue with the same management. 2. Subjective right lower lobe pneumonia. That is why the patient is on aztreonam and azithromycin, day #3 of both medication. We will continue with same management. 3. Diarrhea and dizziness on presentation related to volume depletion, resolved. 4. History of small lung cancer. We will continue with the Opdivo. 5. Anemia of chronic disease, better. We will continue to monitor CBC. 6. Disposition. I think at this point if the patient continues to improve, we may be able to discharge this patient during the next 24 to 48 hours. cc: David Rehman MD
[2018-10-26] MEDS: CRESTOR PO SCH (21:27)
[2018-10-27] MEDS: AZACTAM 1 GM in NS 50 ML IV SCH ×2 (02:37→09:49)
[2018-10-27] MEDS: DUONEB (A & A) INH SCH ×3 (03:28→15:41)
[2018-10-27 07:55] LABS: BASO# 0.01 X1000 (0.0-0.2); BASO% 0.2 % (0.0-0.8); EOS# 0.01 X1000 (0.0-0.7); EOS% 0.2 % (0.0-10.0); HEMATOCRIT 24.9 % (37.0-47.0); HEMOGLOBIN 7.9 g/dL (12.0-16.0); IMM GRAN# 0.29 X1000 (0.0-0.04); IMM GRAN% 6.8 % (0.0-0.5); LYMPH# 0.84 X1000 (1.2-3.4); LYMPH% 19.8 % (20.5-51.1); MCH 32.1 PG (27-31); MCHC 31.7 g/dL (33-37); MCV 101.2 FL (81-99); MONO# 0.53 X1000 (0.11-0.59); MONO% 12.5 % (1.7-9.3); MPV 9.8 FL (7.4-10.4); NEUT# 2.57 X1000 (1.4-6.5); NEUT% 60.5 % (42.2-75.2); PLT 264 X1000 (130-400); RBC 2.46 XMIL (4.2-5.4); RDW 18.1 % (11.5-14.5); WBC 4.25 X1000 (4.8-10.8)
[2018-10-27 08:03] LABS: AGAP 8; BUN 14 mg/dL (8-22); CALCIUM 8.4 mg/dL (8.8-10.2); CHLORIDE 100 mmol/L (98-107); COSMO 276; CREATININE 0.6 mg/dL (0.5-0.9); ESTIMATED GFR > 60; GLUCOSE 94 mg/dL (70-104); POTASSIUM 3.3 mmol/L (3.5-5.1); SODIUM 138 mmol/L (136-145); TCO2 30 mmol/L (25-35)
[2018-10-27 08:24] LABS: BANDS 2 % (0-1); LYMPHS 14 % (21-51); MONO 12 % (1-9); NRBC 2 % (0-0); SEGS 68 % (42-75)
[2018-10-27 08:25] LABS: ANISOCYTOSIS 1+; HYPOCHROM 1+
[2018-10-27] MEDS: NORVASC PO SCH (09:47)
[2018-10-27] MEDS: FOLIC ACID PO SCH (09:47)
[2018-10-27] MEDS: FERROUS SULFATE PO SCH (09:47)
[2018-10-27] MEDS: ZITHROMAX PO SCH (09:47)
[2018-10-27] MEDS: PREDNISONE PO SCH (09:47)
[2018-10-27] MEDS: LOPRESSOR PO SCH (09:48)
[2018-10-27] MEDS: KEPPRA PO SCH (09:48)
[2018-10-27] MEDS: ELIQUIS PO SCH (09:48)
[2018-10-27] MEDS: SPIRIVA INH SCH (09:58)
[2018-10-27] MEDS: BREO ELLIPTA 100/25 MCG INH INH SCH (09:59)
[2018-10-27] MEDS ORDERED: KLOR-CON PO ONE (11:11)
[2018-10-27 11:51] VITALS: BP 126/47
[2018-10-27] MEDS: TUMS PO SCH ×2 (12:15→16:28)
[2018-10-27] MEDS ORDERED: SODIUM CHLORIDE 0.9% 10 ML ONE (16:33)
--- NOTE | 2018-10-28 12:10 | DISCHARGE SUMMARY ---
ADMISSION DATE: 10/21/2018 DISCHARGE DATE: 10/27/2018 ADMITTING DIAGNOSES: 1. Atrial fibrillation with rapid ventricular response. 2. Hypotension. 3. Diarrhea. 4. Chronic obstructive pulmonary disease. 5. Lung cancer. 6. Anemia, unspecified. DISCHARGE DIAGNOSES: 1. Atrial fibrillation. 2. Hypertension. 3. Right lower lobe pneumonia. 4. Diarrhea. 5. Small-cell lung cancer. 6. Anemia of chronic disease. CONSULTS: Dr. Rohit Fischer; Dr. Jd Campbell. HOSPITAL COURSE: Mrs. Vargas is a 78-year-old female who presented to the ER on 10/20/2018 with complaints of dizziness and diarrhea for several days. She was noted to be in atrial fibrillation with RVR in the ER. The patient was started on a Cardizem drip and placed on the CIC unit. The patient also has a history of small cell lung cancer. She has been on Opdivo per Dr. Boo Fischer, and developed episodes of immune-mediated colitis as result from the Opdivo. The patient was started on steroids prior to hospitalization, and the Opdivo was held. The patient also has a history of COPD and hypertension. Dr. Campbell was consulted. The patient was noted to convert back into sinus rhythm on the Cardizem drip. Dr. Campbell recommended to start the patient on low-dose metoprolol, and continue anticoagulation, and to start diuretics on the patient for fluid volume overload. The patient was transferred out to the medical floor. She was noted to have a suspected right lower lobe pneumonia, and was started on aztreonam and azithromycin. Her diarrhea and her dizziness resolved after volume repletion. The patient was noted to have anemia of chronic disease while in the hospital. Hematology and Oncology were following for low hemoglobin levels and a history of small-cell lung cancer. The patient is being discharged today home. She is to follow up with her primary care physician and Dr. Fischer. PROCEDURES AND FINDINGS: White blood cell count 4.25, hemoglobin 7.9, hematocrit 24.9, platelets 264,000. Sodium 138, potassium 3.3, BUN is 14, creatinine is 0.6, GFR is greater than 60, glucose 94, calcium 8.4. Echocardiogram shows a moderate pericardial effusion without tamponade, normal left ventricular systolic function, shows the right atrial pressure is elevated, and so appears to be pulmonary systolic pressure, which is grossly estimated in any case to be somewhat around [address] of the head was done and showed chronic ischemic microvascular changes and chronic bilateral maxillary sinusitis. CT of the chest was done and shows multinodular/tree-in-bud infiltrates, most pronounced posterior in the lower lobes, which are more prominent than on the prior study. It shows worsening bronchial wall thickening and development of trace pleural fluid. Also shows small mediastinal nodes that are similar to the prior exam. EKG done on 10/23/2018 shows normal sinus rhythm at a rate of 73 beats per minute. DISCHARGE MEDICATIONS: Metoprolol 25 mg p.o. every 12 hours, alprazolam 0.5 mg p.o. 3 times a day p.r.n., aspirin 81 mg p.o. daily, doxycycline 100 mg p.o. b.i.d., Eliquis 5 mg p.o. b.i.d., folic acid 1 mg p.o. b.i.d., Garrison 10/325 one tablet p.o. 3 times a day p.r.n. pain, Keppra 750 mg p.o. b.i.d., MiraLAX 17 gram powder packet p.o. daily, Mucinex 600 mg p.o. b.i.d., Norvasc 5 mg p.o. b.i.d., prednisone 60 mg p.o. daily, calcium carbonate chews 500 mg p.o. t.i.d., vitamin B12, 1000 mcg p.o. daily, Breo Ellipta 100/25 one puff inhaled b.i.d., Crestor 5 mg p.o. at bedtime, albuterol and Atrovent DuoNebs 4 times a day, furosemide 20 mg p.o. daily p.r.n., Levsin 0.125 mg sublingual t.i.d. p.r.n., mirtazapine 45 mg p.o. at bedtime, Spiriva 18 mcg inhaled daily. DISCHARGE DIET: Patient to resume diet as tolerated. DISCHARGE ACTIVITY: Resume normal activity as tolerated. DISCHARGE DISPOSITION: The patient is discharged home with [facility]. The patient is to follow up with Dr. Loyd Knox, Dr. Rohit Fischer, and Dr. Jd Campbell. The patient has an appointment for Dr. Jd Campbell on 12/04/2018 at 2:30 p.m. Dictated by JESSICA Wright for David Rehman MD cc: MD Loyd Bond MD Sammy Becdach, MD William D. Denney, MD
== END 2018-10-27 17:00 | disposition home health service (06) | DRG 308 ==
LOC: ED 14:09 → SUATTDRO 10-21 00:29 → EDIPHOLD 10-21 00:29 → 3S 10-21 10:21 → 3N 10-25 19:09
PROVIDERS: ATTEND Internal Medicine
CPT/HCPCS: 70450; 71010; 71045; 71270; 74177; 76705; 80048; 80053; 81001; 82550; 82607; 82728; 82805; 83540; 83550; 83605; 83735; 83880; 84443; 84484; 85025; 85610; 85730; 87040; 87070; 87205; 89220; 93005; 93010; 93308; 94640; 94760; 94761; 94799; 96365; 96366; 96367; 96375; 97110; 97116; 97162; 97530; 99285; 99291; A9270; J1756; J1940; J2405; J3010; J3475; J7030; J7050; J7070; J7506; J7512; Q9967; S0073